=== PATIENT | male | born 1980 | race Caucasian/White ===

== ENCOUNTER 2018-04-03 14:13 | Emergency (ER) | payer MEDICARE, MEDICAID, SELFPAY ==
[2018-04-03 14:14] VITALS: BP 146/92; PULSE 112; RESP 18; TEMP 36.6; O2SAT 96; BMI 23.7
--- NOTE | 2018-04-03 14:41 | ED.VISSUMM ---
- ER Visit Summary Date of Service: 04/03/18 Chief Complaint: [] [place]'s chorea, weakness falling depression and anger issues cannot live with grandmother History of Present Illness: The patient is a 37 M [] that history for many years he is here with his aunt reports the grandmother is 93 and she no longer feels that she can care for him in the home as he constantly falls he cannot care for himself, she cannot help him, there are times where he is very depressed other times where he is very angry because of all the above, apparently grandmother came to the hospital via the day and talk to manager social media and there was some plan to have manager social media do an assessment however today the aunt brought him to the hospital to have all of the above expedited. The patient has not been ill in any way no fever no cough no chest pain he is seen by Dr. Prasanna Hull neurologist in [facility] his chorea is stable and the patient has no complaints Physical Examination: [] His vital signs are within normal range she does have nonspecific choreiform type movements of his extremities he is awake alert in all them this is chronic for him head neck chest abdomen otherwise unremarkable he is awake and alert oriented ?3 he denies being homicidal or suicidal there is no report of any type of injury or harm to grandmother but she basically is concerned about his mannerisms such that she does not feel comfortable living with him and also she cannot help him with his current condition Test Results: [] Emergency Department Course and Treatment: [] Of the above we will obtain screening labs manager social media [facility] or talking to the patient and the family now we will try to arrange some type of outpatient plan and management living arrangement for him if not it may be necessary have mental health services see him or have him admitted until placement can be arranged, screening labs will be on the chart She was seen by manager social media, they inform me, and I concur he again is awake and alert competent and coherent he is his own decision maker he does not have a power of associate attorney he does not wish to be admitted he is declining any evaluation for placement as he states he does not wish to do that I have explained all the above the family that there is really nothing we can do given that he is refusing placement I have explained that if the grandmother does not wish for him to be in the home that the patient will have to find some other place to stay or live we recommended a local care home [facility] type situation or may be the family can help him locate to a motel until more permanent living arrangements can be obtained there is no signs of homicidal suicidal ideation or psychomotor agitation this is clearly a social issue with family members Treatment Plan: [] Please make the following note addendum the patient is agreeable to being admitted to rehab and manager social media has talked to rehab and they are trying to make arrangements for him to be admitted there so the current plan is to admit him to rehab if not the plan is as above Disposition: [] Impression: [] History of [place]'s chorea, can no longer live with grandmother needs placement her family This note was generated with Cat [employer] dictation software. It may contain incorrect words, spelling, and punctuation that were not noted in review of the chart prior to signing ED Disposition - Plan for ED Patient: Chief Complaint: Mental Health Instructions: ED Prevention Fall Referrals: Lucia Yeager [NON-STAFF] - Care Physician,No Primary [Primary Care Provider] -
--- NOTE | 2018-04-03 14:44 | ED.DCSUM_ITS ---
- ER Visit Summary Date of Service: 04/03/18 Chief Complaint: [] [place]'s chorea, weakness falling depression and anger issues cannot live with grandmother History of Present Illness: The patient is a 37 M [] that history for many years he is here with his aunt reports the grandmother is 93 and she no longer feels that she can care for him in the home as he constantly falls he cannot care for himself, she cannot help him, there are times where he is very depressed other times where he is very angry because of all the above, apparently grandmother came to the hospital via the day and talk to transition social worker and there was some plan to have transition social worker do an assessment however today the aunt brought him to the hospital to have all of the above expedited. The patient has not been ill in any way no fever no cough no chest pain he is seen by Dr. Prasanna Hull neurologist in [facility] his chorea is stable and the patient has no complaints Physical Examination: [] His vital signs are within normal range she does have nonspecific choreiform type movements of his extremities he is awake alert in all them this is chronic for him head neck chest abdomen otherwise unremarkable he is awake and alert oriented ?3 he denies being homicidal or suicidal there is no report of any type of injury or harm to grandmother but she basically is concerned about his mannerisms such that she does not feel comfortable living with him and also she cannot help him with his current condition Test Results: [] Emergency Department Course and Treatment: [] Of the above we will obtain screening labs transition social worker [facility] or talking to the patient and the family now we will try to arrange some type of outpatient plan and management living arrangement for him if not it may be necessary have mental health services see him or have him admitted until placement can be arranged, screening labs will be on the chart She was seen by transition social worker, they inform me, and I concur he again is awake and alert competent and coherent he is his own decision maker he does not have a power of county attorney he does not wish to be admitted he is declining any evaluation for placement as he states he does not wish to do that I have explained all the above the family that there is really nothing we can do given that he is refusing placement I have explained that if the grandmother does not wish for him to be in the home that the patient will have to find some other place to stay or live we recommended a local [facility]p [facility] type situation or may be the family can help him locate to a motel until more permanent living arrangements can be obtained there is no signs of homicidal suicidal ideation or psychomotor agitation this is clearly a social issue with family members Treatment Plan: [] Please make the following note addendum the patient is agreeable to being admitted to rehab and transition social worker has talked to rehab and they are trying to make arrangements for him to be admitted there so the current plan is to admit him to rehab if not the plan is as above Disposition: [] Impression: [] History of [place]'s chorea, can no longer live with grandmother needs placement her family This note was generated with Siemens dictation software. It may contain incorrect words, spelling, and punctuation that were not noted in review of the chart prior to signing ED Disposition - Plan for ED Patient: Chief Complaint: Mental Health Instructions: ED Prevention Fall Referrals: Lucia Yeager [NON-STAFF] - Care Physician,No Primary [Primary Care Provider] -
[2018-04-03 15:02] LABS: Absolute Neutrophil Count 4.8 X10^3/uL (2.0-7.7); Basophil# 0.03 X10^3/uL; Basophil% 0.4 % (0-1); Eosinophil# 0.08 X10^3/uL; Eosinophils% 1.1 % (0-5); Hematocrit 47.3 % (40-54); Hemoglobin 16.1 g/dl (13.0-16.5); Lymphocyte % 23.8 % (19-41); Mean Corpuscular Volume 88.1 fL (80-94); Mean Platelet Vol. 10.7 fl (6.2-12.0); Monocyte# 0.58 X10^3/uL; Monocyte% 8.1 % (0-10); Neutrophil # 4.75 X10^3/uL (2.7-7.7); Neutrophil % 66.5 % (47-70); POSITIVE COUNT NO; POSITIVE DIFFERENTIAL NO; POSITIVE MORPHOLOGY NO; Platelet Count 181 K/mm3 (150-450); RBC Distribution Width CV 13.2 % (11.6-14.6); RBC Distribution Width SD 42.3 fl (35.1-43.9); Red Blood Count 5.37 M/mm3 (4.6-6.2); White Blood Count 7.2 K/mm3 (4.4-11.0)
--- NOTE | 2018-04-03 15:03 | CASEMGMT ---
Social Work Note Voicemail from Kasi Palacio, Pt Navigator, informing SW that pt would be on his way in to the ED with his aunt and that family is seeking placement. Update that the pt has [place]'s disease and has been living with his grandmother, Shaniqua Hallman, who is a volunteer here at the hospital. Pt arrives with his aunt and aunt requests to speak with SW. Face to face with the pt and his aunt. Pt reports to live with his grandmother. States that he was in a SNF in [facility] about 6 years ago for approximately 6 months. Inquire if they are seeking placement now. Pt's aunt shakes her head yes and the pt states no. Pt is his own person and does not have a LG appointed. Inquire about his fall today. Pt states that he was transferring in the kitchen when he fell. Denies that he has frequent falls. States that he is primarily independent with care and is able to dress himself, feed himself and bathe himself. Aunt shakes her head no in the background. Pt denies having Waiver Services or aide services that assist in the home. Claims that he used to have an aide that came out once a week for $20/visit and assisted with household cleaning. Pt states he has had Medicaid for approximately 8-9 years. Inquire further about ADL's. Pt denies having DME in the bathroom and states that his grandmother does not assist him with bathing, but that he lowers himself into a tub and uses a handheld shower. States that he and his grandmother both listen for the other while they are bathing, but do not physically assist one another. Pt again states that he is not interested in going to a facility and feels that he is able to manage himself at home. Inform that SW placed an order for PT to come and evaluate and that they would make an recommendation based on their evaluation. Pt expresses understanding. Provided pt with a list of facilities in [place] in the event that he agrees to go and explain that SW will return. Pt's aunt follows SW out of the room and states that the pt is lying and is not able to do all of that independently. States that he does not clean or make prepare his own meals. Claims that her mother is 90 years old and does not feel safe anymore. Express understanding and explain that unfortunately SW cannot force the pt to go to a facility if he is not agreeable. Explain that this SW, individually, has made multiple APS phone calls and because the pt's grandmother has not been cooperative with APS, SW does not believe that they can force the pt out of the home until an eviction notice is provided. Discuss that SW will contact APS to verify and see what options are available. Placed call to Rain Childs, search engine optimization analyst with APS, and left vm. No return phone call. Placed call to Urmila Dumas, supervisor personnel clerks. According to Urmila they cannot force the pt to go to a facility as he is not over 60 and does not fall under their jurisdiction. States that because the grandmother has not wanted to kick the pt out when they have been involved and provide him with an eviction notice they cannot force him out of the home in one day. States that another APS report can be made and they can follow-up and assist with evicting him if the grandmother is willing to cooperate with them and the procedure/protocols they have to implement. Will await PT evaluation to further discuss with pt options for discharge. Physician updated. Sarah Beebe, ZIPPER SETTER, SQL DEVELOPER
[2018-04-03 15:14] VITALS: RESP 16
[2018-04-03 15:14] LABS: Anion Gap 5 (5-15); BUN 24 mg/dL (7-18); BUN/Creat Ratio 20.9 RATIO (10-20); Calcium,Total 9.1 mg/dL (8.5-10.1); Chloride 111 mmol/L (98-107); Creatinine, Serum 1.15 mg/dL (0.70-1.30); EST Glomerular Filtration Rate 75 mL/min (>60); Est Glom Filt Rate - Afr Amer 91 mL/min (>60); Estimated Creatinine Clearance 98.43 ml/min; Glucose 94 mg/dL (74-106); Sodium Level 144 mmol/L (136-145)
[2018-04-03 16:21] VITALS: RESP 16
--- NOTE | 2018-04-03 16:38 | ED.DEP ---
ED Disposition - Plan for ED Patient: Chief Complaint: Mental Health Instructions: ED Prevention Fall Referrals: Care Physician,No Primary [Primary Care Provider] - Lucia Yeager [NON-STAFF] -
--- NOTE | 2018-04-03 16:41 | ED.DEP ---
ED Disposition - Plan for ED Patient: Chief Complaint: Mental Health Instructions: ED Prevention Fall Referrals: Lucia Yeager [NON-STAFF] - Care Physician,No Primary [Primary Care Provider] -
[2018-04-03 16:47] LABS: Amphetamine Urine VISTA NEGATIVE (<1000 ng/mL); Barbiturate Urine VISTA NEGATIVE (< 200 ng/mL); Benzodiazepine Urine VISTA NEGATIVE (< 200 ng/mL); Cocaine Urine VISTA NEGATIVE (< 300 ng/mL); Ecstacy Urine VISTA NEGATIVE (< 500 ng/mL); Methadone Urine VISTA NEGATIVE (< 300 ng/mL); PCP Urine VISTA NEGATIVE (< 25 ng/mL); THC Urine VISTA NEGATIVE (< 50 ng/mL); Vista UDS pH Range 5
--- NOTE | 2018-04-03 16:56 | CM.ED ---
Social Work Note Called Charleen in [facility] to review pt's case. Charleen down to unit and accompanies SW into pt's room to discuss option of [facility] for short-term rehabilitation. Pt is agreeable and understands that a minimum of 3 hrs of therapy per day is required. Charleen states that she is going to work on paperwork to have pt admitted to [facility] this date. Pt states that he wants to do what is easiest for his grandmother at discharge and if possible to setup would like to go elsewhere at discharge. Pt signed application for review of eligibility of services. Application faxed to Robert. PT had recommended home with HHC or a [facility] setting. Requested evaluation for [place] [facility] Waiver and [employer] (SELF) Waiver. Information passed along to SW on [facility]. Sarah Beebe, MARKET RESEARCH ASSOCIATE, CONNIE CLEANER
--- NOTE | 2018-04-03 16:59 | ED.RN ---
REPORT GIVEN TO EVETTE TIMMONS ON REHAB.
--- NOTE | 2018-04-03 17:21 | ED.RN ---
PT TRANSPORTED TO [facility] BY CARDIOLOGY TEACHER. PT SKIN P/W/D, RESP EVEN AND UNLABORED, PT A&O X 3, NO DISTRESS NOTED.
== END 2018-04-03 17:22 | disposition home or self-care (01) ==
PROVIDERS: Emergency Provider Emergency Medicine
DX: G10 Huntington's disease (principal); F32.9 Major depressive disorder, single episode, unspecified; Z91.81 History of falling; Z79.899 Other long term (current) drug therapy
CPT/HCPCS: 80048; 80307; 80320; 85025; 97165; 99281; G0480; G8987; G8988; G8989

== ENCOUNTER 2018-04-03 18:06 | Inpatient (IN) | payer MEDICARE, MEDICAID, SELFPAY ==
[2018-04-03 18:23] VITALS: BP 143/95; PULSE 92; RESP 16; TEMP 36.8; O2SAT 95; BMI 21.2
[2018-04-03 19:50] VITALS: BP 128/85; PULSE 75; RESP 18; TEMP 37.1; O2SAT 95
[2018-04-03 21:40] VITALS: BMI 21.2
[2018-04-03] MEDS: hydrOXYzine PAM 25 MG Capsule 50 MG PO (22:03)
[2018-04-03] MEDS: Amantadine 100 MG Capsule PO (22:04)
[2018-04-03] MEDS: Baclofen 10 MG Tablet PO (22:04)
[2018-04-03] MEDS: Gabapentin 300 MG Capsule PO (22:04)
[2018-04-03] MEDS: LORazepam 0.5 MG Tablet PO (22:08)
[2018-04-04] MEDS: Acetaminophen 325 MG Tablet 650 MG PO ×2 (00:39→20:58)
[2018-04-04] MEDS: Amantadine 100 MG Capsule PO ×3 (06:27→21:00)
[2018-04-04 07:25] VITALS: O2SAT 96
[2018-04-04] MEDS: Famotidine 20 MG Tablet PO ×2 (07:55→21:01)
[2018-04-04] MEDS: Escitalopram Oxalate 10 MG Tablet PO (07:56)
[2018-04-04] MEDS: Gabapentin 300 MG Capsule PO ×3 (07:56→17:43)
[2018-04-04] MEDS: Baclofen 10 MG Tablet PO ×4 (07:56→21:01)
[2018-04-04 09:44] VITALS: BP 114/78; PULSE 66; RESP 17; TEMP 36.5; O2SAT 92
[2018-04-04] MEDS: Enoxaparin 40 MG/0.4 ML Syringe SC (10:21)
--- NOTE | 2018-04-04 14:29 | HP.PCM.COS_ITS ---
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 He is constantly falling, per the family. He lives with his grandmother who is 93. She feels she can no longer care of him in the home because of the falls and his inability to care for himself. He recently was attempting to open a can of cat food and cut him self on the can when his hand started jerking, he has choreiform movements throughout, he did not require any sutures and the cut is not very deep. He also dropped a crock pot on his foot, it is red and slightly swollen but not broken. The patient has not been ill in any way he denies any fevers, chills, cough, or chest pains. His Neurologist is Dr. Everett Hull in [place]. He and his grandmother live in a two story home with 4 steps to get into the house and hard caldwell floor through out the house. He is unable to care for him self at home, per the family. He does not drive. He will probably need placement in a [facility] at discharge. Past Medical History Allergies No Known Allergies Allergy (Verified 04/03/18 14:17) Home Medications: Ambulatory Orders Medication Instructions Recorded Amantadine [Symmetrel] 100 mg PO TID 02/28/14 Baclofen [Lioresal] 10 mg PO 4X/DAY 02/28/14 Gabapentin 300 mg PO TID 02/28/14 Escitalopram Oxalate [Lexapro] 10 mg PO DAILY 04/03/18 Hydroxyzine HCl 50 mg PO DAILY 04/03/18 Lives: With Family Smoking Status: Current every day smoker Tobacco Use: Cigarettes Alcohol: None Drugs: None Review of Systems Constitutional: Denies: Chills, Fever, Weight Change HEENT: Denies: Head Aches, Sinus Congestion, Sinus Drainage Cardiovascular: Denies: Chest Pain, Palpitations Respiratory: Denies: Cough, Shortness of breath at rest, Sputum production Gastrointestinal: Denies: Abdominal Pain, Nausea, Vomiting Genitourinary: Denies: Dysuria Musculoskeletal: Denies: Joint Pain, Joint Tenderness Skin: Denies: Rash, Wounds Neurological: Denies: Numbness, Tingling, Focal weakness Psychiatric: Denies: Anxiety, Depression, Homicidal Ideations, Suicidal Ideations Hematologic/ Lymphatic: Denies: Easy Bruising, Easy Bleeding VTE Information - Inpt Only VTE Present on Admission: No VTE Mechan Device Prophylaxis: SCD's, Knee High HELENA Hose VTE Pharm Prophylaxis ordered?: Yes - Physical Exam General: Alert, Oriented x3, Cooperative HEENT: Atraumatic, PERRLA, EOMI, Normocephalic Neck: Supple, No JVD, Negative Carotid Bruits Lungs: Clear to auscultation, Normal air movement Cardiovascular: Regular rate, No murmurs Abdomen: Bowel Sounds Present, Soft, Non Tender Extremities: No edema, Capillary Refill Less than 3 Seconds Skin: No rashes, No breakdown Musculoskeletal: No Tenderness to Palpation of Joints or Extremities Neurological: Cranial nerves II-XII grossly intact Psych/Mental Status: Normal Affect, Appropriate, Alert and oriented to time, place, person, mood and affect Vital Signs Temp Pulse Resp BP Pulse Ox 97.7 F L 66 17 114/78 92 04/04/18 09:44 04/04/18 09:44 04/04/18 09:44 04/04/18 09:44 04/04/18 09:44 Oxygen Delivery Method Room Air Weight: 73 kg Body Mass Index (BMI) 21.2 Intake and Output for Last 24 Hours 04/02/18 04/03/18 04/04/18 23:59 23:59 23:59 Intake Total 580 / 580 Balance 580 / 580 Active Medications Acetaminophen (Tylenol) 650 mg PO Q6H PRN PRN PRN Reason: mild to mod pain/fever Last Admin: 04/04/18 00:39 Dose: 650 mg Amantadine HCl (Symmetrel) 100 mg PO TID [facility] Last Admin: 04/04/18 06:27 Dose: 100 mg Baclofen (Lioresal) 10 mg PO 4X/DAYCM [facility] Last Admin: 04/04/18 12:31 Dose: 10 mg Bisacodyl (Dulcolax) 10 mg RECTAL .PRN X 1 PRN PRN Reason: Constipation Enoxaparin Sodium (Lovenox) 40 mg SC DAILY [facility] Last Admin: 04/04/18 10:21 Dose: 40 mg Escitalopram Oxalate (Lexapro) 10 mg PO DAILY [facility] Last Admin: 04/04/18 07:56 Dose: 10 mg Famotidine (Pepcid) 20 mg PO BID [facility] Last Admin: 04/04/18 07:55 Dose: 20 mg Gabapentin (Neurontin) 300 mg PO TIDCM [facility] Last Admin: 04/04/18 12:31 Dose: 300 mg Hydroxyzine Pamoate (Vistaril Pamoate Capsule) 50 mg PO DAILY@2200 [facility] Last Admin: 04/03/18 22:03 Dose: 50 mg Ibuprofen (Motrin) 600 mg PO Q6H PRN PRN PRN Reason: SEVERE PAIN (6-1010) Lorazepam (Ativan) 0.5 mg PO QHS PRN PRN PRN Reason: Insomnia Last Admin: 04/03/18 22:08 Dose: 0.5 mg Magnesium Hydroxide (Milk Of Magnesia) 30 ml PO .PRN X 1 PRN PRN Reason: Constipation Nicotine (Nicoderm Cq (Pbkc)) 14 mg TRANSDERM. 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 Goal of rehab is buddhist of prior level of functional independence. Plan: - Physical therapy for gait and balance - Occupational Therapy for ADLs - Speech therapy - As needed analgesics - Bowel protocol - DVT prophylaxis: [place] hoses, SCDs, and Lovenox - Fall Precautions - Plan is placement in [facility] at discharge - [place]'s chorea - continue home medication regimen. Recommend tetrabenazine for movement disorder. [facility] pharmacy does not carry inpatient but will attempt to order in. - Depression-continue home Lexapro regimen. - Tobacco Dependence - nicotine replacement patch. discussed cessation benefits.
--- NOTE | 2018-04-04 15:31 | PCM.PROGNOTE ---
Subjective: Patient seen and examined. Family at bedside. Patient denies current complaints. Denies GI/ complaints. States he walked with therapy assistance today without difficulty. - Physical Exam General: Alert, Oriented x3, Cooperative, No apparent distress HEENT: Atraumatic, PERRLA, EOMI, Normocephalic Oral: Moist Mucosa Neck: Supple, No JVD, Negative Carotid Bruits Lungs: Clear to auscultation, Normal air movement Cardiovascular: Regular rate, Regular Rhythm, Normal S1, Normal S2, No murmurs Abdomen: Bowel Sounds Present, Soft, Non Tender Extremities: No clubbing, No cyanosis, No edema, Capillary Refill Less than 3 Seconds Skin: No rashes, No breakdown Musculoskeletal: No Tenderness to Palpation of Joints or Extremities Neurological: Cranial nerves II-XII grossly intact, Neuro grossly intact, - - Abnormal body movements. Psych/Mental Status: Normal Affect, Appropriate Vital Signs Temp Pulse Resp BP Pulse Ox 97.7 F L 66 17 114/78 92 04/04/18 09:44 04/04/18 09:44 04/04/18 09:44 04/04/18 09:44 04/04/18 09:44 Oxygen Delivery Method Room Air Weight: 73 kg Body Mass Index (BMI) 21.2 Intake and Output for Last 24 Hours 04/02/18 04/03/18 04/04/18 23:59 23:59 23:59 Intake Total 580 / 580 Balance 580 / 580 Medical Necessity - Tobacco Use Smoking Status: Current every day smoker Tobacco Use: Cigarettes Assessment/Plan Patient is a 37-year-old male admitted 04/03/2018 due to debility, frequent falls at home secondary to [place]'s chorea disease. He has a significant family history of [place]'s chorea. He currently lives with grandmother with his 93 years old. He follows with a neurologist, Dr. Jose Koch. 1. Physical debility secondary to [place]'s chorea-continue home medication regimen. PT/OT/ST. Anticipate need for SNF at [place]. Dr. Martin recommending tertabenazine for movement disorder. [facility] pharmacy does not carry inpatient but will attempt to order in. Fall precautions. 2. Depression-continue home Lexapro regimen. 3. Tobacco Dependence- nicotine replacement patch. Recommend cessation. DVT prophylaxis- Lovenox SC This patient was seen by KARLA Hilton under the supervision of Dr. Vergara.
--- NOTE | 2018-04-04 15:42 | PN_ITS ---
Subjective: Patient seen and examined. Family at bedside. Patient denies current complaints. Denies GI/ complaints. States he walked with therapy assistance today without difficulty. - Physical Exam General: Alert, Oriented x3, Cooperative, No apparent distress HEENT: Atraumatic, PERRLA, EOMI, Normocephalic Oral: Moist Mucosa Neck: Supple, No JVD, Negative Carotid Bruits Lungs: Clear to auscultation, Normal air movement Cardiovascular: Regular rate, Regular Rhythm, Normal S1, Normal S2, No murmurs Abdomen: Bowel Sounds Present, Soft, Non Tender Extremities: No clubbing, No cyanosis, No edema, Capillary Refill Less than 3 Seconds Skin: No rashes, No breakdown Musculoskeletal: No Tenderness to Palpation of Joints or Extremities Neurological: Cranial nerves II-XII grossly intact, Neuro grossly intact, - - Abnormal body movements. Psych/Mental Status: Normal Affect, Appropriate Vital Signs Temp Pulse Resp BP Pulse Ox 97.7 F L 66 17 114/78 92 04/04/18 09:44 04/04/18 09:44 04/04/18 09:44 04/04/18 09:44 04/04/18 09:44 Oxygen Delivery Method Room Air Weight: 73 kg Body Mass Index (BMI) 21.2 Intake and Output for Last 24 Hours 04/02/18 04/03/18 04/04/18 23:59 23:59 23:59 Intake Total 580 / 580 Balance 580 / 580 Medical Necessity - Tobacco Use Smoking Status: Current every day smoker Tobacco Use: Cigarettes Assessment/Plan Patient is a 37-year-old male admitted 04/03/2018 due to debility, frequent falls at home secondary to [place]'s chorea disease. He has a significant family history of [place]'s chorea. He currently lives with grandmother with his 93 years old. He follows with a neurologist, Dr. Jose Koch. 1. Physical debility secondary to [place]'s chorea-continue home medication regimen. PT/OT/ST. Anticipate need for SNF at [place]. Dr. Martin recommending tertabenazine for movement disorder. [facility] pharmacy does not carry inpatient but will attempt to order in. Fall precautions. 2. Depression-continue home Lexapro regimen. 3. Tobacco Dependence- nicotine replacement patch. Recommend cessation. DVT prophylaxis- Lovenox SC This patient was seen by KARLA Hilton under the supervision of Dr. Vergara.
--- NOTE | 2018-04-04 15:44 | CASEMGMT ---
Social Work Met with pt in room and completed psychosocial assessment. Pt willing to speak to SW and openly answers questions. Pt stating that he is independent with care and getting along well at home. He lives with his 93 year old grandmother in a basement apartment and has no trouble negotiating the stairs. Pt states he plans to return home upon discharge and that pt believes his grandmother is contemplating moving to a nursing facility as keeping the house up is too much for her. Pt states he does have a , Cathy Amor, who he speaks with on the phone but he does not live with her. Pt indicates that she is is HCPOA and that he completed this paper work at [facility] however, no documents are on file. SW spoke with [facility] ED SW who worked with pt and family yesterday. Family reports pt cannot care for himself at home and that his grandmother does not feel pt can return home as she can no longer care for him. No indication that pt grandmother was moving out of the home. Family does not indicate pt has HCPOA papers. With permission from pt, phone call placed to Cathy with no answer. SW will follow up to offer support and discuss discharge planning LISA Drew
--- NOTE | 2018-04-04 16:06 | REHABEVAL_ITS ---
Admission Information Status Changes from Prescreening?: No changes Identified Actual Problem List:: Falls, Mobility Impaired, Self Care Deficit Potential Problem List:: DVT, Bleeding, Infection, UTI, Aspiration, Falls, Skin Integrity, Depression Risk of Complications DVT: LMWH, HELENA Hose, Sequential Compression Device Bleeding: Monitor Lab Values, Nursing to Teach Precautions for anti-coagulation therapy., Wound, if applicable, to be assessed every shift., Stroke patients assessed for lethargy or change in status. Infection: Clinical Staff to Monitor for S/S of infection:, S/S of infection include fever, redness, warmth, etc. Urinary Tract Infection: Monitor for frequency, burning, discomfort, or incontinence., Nursing will obtain urine sample for urinalysis and C&S when ordered. Aspiration: Clinical staff will monitor for coughing, drooling, congestion., Speech will evaluate swallowing and dsyphasia., Nursing will monitor patient swallowing during meals. Falls: Patient will be evaluated for Fall Precautions, Patient will be placed on Fall Precautions as indicated per protocol. Skin Breakdown: Nursing will assess skin daily using assessment tool., Nursing will place on Skin Breakdown Precautions as indicated. Pain: Clinical staff will assess patient's pain level per protocol., Medications will be given, if needed, and the pain level reassessed., Other methods: Massage, distraction, decrease stimulus, etc. used PRN. Plan of Care Patient requires physician specializing in physical medicine and rehab oversight to provide close medical supervision of rehab issues including: Pain Management, Sleep Problems, Bowel and Bladder, Medical and co-morbidity Management, DVT prophylaxis, Rehabilitation Leadership, Coordination of treatment team Patient needs Physical Therapy: For a minimum of 1 hour, At least 5 out of 7 days Patient needs Physical Therapy to improve:: Mobility, Mobility, Mobility, Strengthening, Transfers, Stretching, ROM, Endurance, Stairs, Gait, Balance Patient needs Occupational Therapy: For a minimum of 1 hour, At least 5 out of 7 days Patient needs Occupational Therapy to improve ADL's incl.: Eating, Grooming, Bathing, Dressing, Toileting, Toilet transfers, Community Reintegration, Higher functioning activities, Household tasks, Adaptive Equipment, Splinting, Other activities as determined Patient requires speech therapy: For a minimum of 1 hour, At least 5 out of 7 days Patient requires speech therapy for: Swallowing, Cognition, Language Skills, Compensatory Strategies Patient requires / Rehabilitation Nursing for: Pain Issues, Identifying and preventing risk factors, Monitoring and reporting current medical conditions, Assisting with ambulation, transfer, and all ADL's, Teaching patients about disease process and medications, Family teaching, Providing safe environment, Bowel and Bladder Issues, Skin integrity, Medication Management Patient needs Painter And Decorator Apprentice/ Case Management for: Discharge Planning, Arranging Home Equipment or Services, Family Interventions Patient needs Dietary and Nutrition Services for: Adequate Nutrition, Nutritional Supplements, Nutritional Education Goals Patient will remain: free from falls, or injury at time of discharge. Patient will perform bed mobility at: MOD I level of assist. Patient will complete transfers from bed to chair at: MOD I level of assist. Patient will ambulate: 100 feet, with MOD I assist, with LRD Patient will complete upper body dressing at: MOD I level of assist. Patient will complete lower body dressing at: MOD I level of assist. Patient will complete toileting at: MOD I level of assist. Patient will perform bathing at: MOD I level of assist. Patient will complete grooming at: MOD I level of assist. Patient will complete home management skills at: MOD I level of assist. Patient will achieve: 12 stairs, at MOD I assist Patient will have pain level of: of 3 or less Patient's skin will: remain intact, free from infection. Patient will receive: adequate nutrition. Discharge Planning Pt Prognosis for Sig. Practical Improv. w/in Reasonable Time: Good Estimated Length of stay (days): 10 Anticipated D/C Destination: May need to be placed in a fci due to HD Was Preadmission Assessment Accurate?: Yes
--- NOTE | 2018-04-04 16:38 | CHAPLAIN ---
Type of Pastoral Visit _x__ Initial Visit ___ Follow-up Visit ___ On-call Visit ___ General Patient Visit ___ Spiritual Assessment ___ Family Conference ___ Bereavement ___ Rapid Response ___ Code Blue ___ Other (describe below) Pastoral Care Referral From _x__ Patient ___ Family ___ Nurse ___ Physician ___ Ground Surveillance Systems Operator ___ Health Plan Advisor ___ Other (describe below) Sacrament/Intervention _x__ Active listening ___ Anointing ___ Nondenominational ___ Bereavement ___ Communion ___ Nina exploration ___ ___ Life review ___ Prayer ___ Reconciliation ___ Sacrament of Sick _x__ Supportive presence ___ Wedding ___ Other (describe below) Pastoral Comments patient had family and friend in room with him; pt was welcoming of autocad designer and invited to stay; gave introduction to self and spiritual support; at patient suggestion, watched some soccer on TV for a few minutes to give presence and support; pt is open to future visits from autocad designer
[2018-04-04 16:48] LABS: Hematocrit 47.1 % (40-54); Hemoglobin 16.2 g/dl (13.0-16.5); Mean Corp Hgb Conc 34.4 g/gl (32-36); Mean Corpuscular Hgb 30.1 pg (27.0-32.0); Mean Corpuscular Volume 87.4 fL (80-94); Mean Platelet Vol. 10.9 fl (6.2-12.0); Platelet Count 173 K/mm3 (150-450); RBC Distribution Width CV 13.2 % (11.6-14.6); RBC Distribution Width SD 42.2 fl (35.1-43.9); Red Blood Count 5.39 M/mm3 (4.6-6.2); White Blood Count 4.6 K/mm3 (4.4-11.0)
[2018-04-04 16:49] LABS: Scan Indicated on CBC? Y/N NO
[2018-04-04 17:14] LABS: ALB/GLOB Ratio 1.1 RATIO (0.9-2.4); AST(SGOT) 41 U/L (15-37); Alanine Aminotransfer ALT/SGPT 43 U/L (16-61); Alkaline Phosphatase 89 U/L (45-117); Anion Gap 6 (5-15); BUN 20 mg/dL (7-18); BUN/Creat Ratio 19.8 RATIO (10-20); Calcium,Total 8.6 mg/dL (8.5-10.1); Chloride 110 mmol/L (98-107); Creatinine, Serum 1.01 mg/dL (0.70-1.30); EST Glomerular Filtration Rate 88 mL/min (>60); Est Glom Filt Rate - Afr Amer 106 mL/min (>60); Estimated Creatinine Clearance 102.39 ml/min; Globulin 3.6 g/dL (2.2-4.2); Glucose 99 mg/dL (74-106); Potassium 3.6 mmol/L (3.5-5.1); Protein, Total 7.6 g/dL (6.4-8.2); Sodium Level 141 mmol/L (136-145)
[2018-04-04 20:47] VITALS: BP 149/96; PULSE 87; RESP 16; TEMP 36.9; O2SAT 93
[2018-04-04] MEDS: LORazepam 0.5 MG Tablet PO (20:58)
[2018-04-04] MEDS: hydrOXYzine PAM 25 MG Capsule 50 MG PO (21:01)
[2018-04-05] MEDS: Amantadine 100 MG Capsule PO ×3 (05:28→22:08)
[2018-04-05 07:22] VITALS: BP 115/78; PULSE 84; RESP 18; TEMP 36.6; O2SAT 98
[2018-04-05] MEDS: Enoxaparin 40 MG/0.4 ML Syringe SC (07:42)
[2018-04-05] MEDS: Famotidine 20 MG Tablet PO ×2 (07:42→22:09)
[2018-04-05] MEDS: Baclofen 10 MG Tablet PO ×4 (07:42→22:09)
[2018-04-05] MEDS: Gabapentin 300 MG Capsule PO ×3 (07:42→17:52)
[2018-04-05] MEDS: Escitalopram Oxalate 10 MG Tablet PO (07:42)
[2018-04-05 18:52] VITALS: BP 142/88; PULSE 88; RESP 18; TEMP 36.3; O2SAT 92
[2018-04-05] MEDS: hydrOXYzine PAM 25 MG Capsule 50 MG PO (22:08)
[2018-04-05] MEDS: LORazepam 0.5 MG Tablet PO (22:09)
[2018-04-05] MEDS: Senna/Docusate Sodium 1 Tablet 2 TABLET PO (22:09)
[2018-04-06] MEDS: Amantadine 100 MG Capsule PO ×3 (05:59→20:43)
[2018-04-06 08:03] VITALS: BP 126/86; PULSE 76; RESP 18; TEMP 37; O2SAT 95
[2018-04-06] MEDS: Escitalopram Oxalate 10 MG Tablet PO (08:08)
[2018-04-06] MEDS: Enoxaparin 40 MG/0.4 ML Syringe SC (08:08)
[2018-04-06] MEDS: Baclofen 10 MG Tablet PO ×4 (08:08→20:43)
[2018-04-06] MEDS: Famotidine 20 MG Tablet PO ×2 (08:08→20:43)
[2018-04-06] MEDS: Gabapentin 300 MG Capsule PO ×3 (08:08→17:06)
[2018-04-06 20:18] VITALS: BP 139/90; PULSE 77; RESP 18; TEMP 36.9; O2SAT 94
[2018-04-06] MEDS: hydrOXYzine PAM 25 MG Capsule 50 MG PO (20:43)
--- NOTE | 2018-04-07 04:51 | NURSING ---
REVIEWED AND AGREE WITH [facility]ENTION DEPUTY'S FIM AND HANDOFF CHARTING.
[2018-04-07] MEDS: Amantadine 100 MG Capsule PO ×3 (06:18→21:44)
[2018-04-07 07:21] VITALS: BP 121/74; PULSE 64; RESP 18; TEMP 36.8; O2SAT 96
[2018-04-07] MEDS: Baclofen 10 MG Tablet PO ×4 (07:43→21:44)
[2018-04-07] MEDS: Escitalopram Oxalate 10 MG Tablet PO (07:44)
[2018-04-07] MEDS: Famotidine 20 MG Tablet PO ×2 (07:44→21:44)
[2018-04-07] MEDS: Gabapentin 300 MG Capsule PO ×3 (07:44→17:29)
[2018-04-07] MEDS: Enoxaparin 40 MG/0.4 ML Syringe SC (07:44)
--- NOTE | 2018-04-07 10:24 | PCM.PN.NEU ---
Subjective: Sitting in bedside recliner working with speech therapy. No new complaints or issues over the weekend. Tolerating therapy. Denies any shortness of breath or pain. No issues with GI/. - Physical Exam General: Alert, Oriented x3, Cooperative HEENT: Atraumatic, PERRLA, EOMI, Normocephalic Neck: Supple, No JVD, Negative Carotid Bruits Lungs: Clear to auscultation, Normal air movement Cardiovascular: Regular rate, No murmurs Abdomen: Bowel Sounds Present, Soft, Non Tender Extremities: No edema, Capillary Refill Less than 3 Seconds Skin: No rashes, No breakdown Musculoskeletal: No Tenderness to Palpation of Joints or Extremities Neurological: Cranial nerves II-XII grossly intact Psych/Mental Status: Normal Affect, Appropriate, Alert and oriented to time, place, person, mood and affect Vital Signs Temp Pulse Resp BP Pulse Ox 98.3 F 64 18 121/74 H 96 04/07/18 07:21 04/07/18 07:21 04/07/18 07:21 04/07/18 07:21 04/07/18 07:21 Oxygen Delivery Method Room Air Weight: 73 kg Body Mass Index (BMI) 21.2 Intake and Output for Last 24 Hours 04/05/18 04/06/18 04/07/18 23:59 23:59 23:59 Intake Total 1100 / 1100 1280 / 1280 440 / 440 Balance 1100 / 1100 1280 / 1280 440 / 440 Active Medications Acetaminophen (Tylenol) 650 mg PO Q6H PRN PRN PRN Reason: mild to mod pain/fever Last Admin: 04/04/18 20:58 Dose: 650 mg Amantadine HCl (Symmetrel) 100 mg PO TID [facility] Last Admin: 04/07/18 06:18 Dose: 100 mg Baclofen (Lioresal) 10 mg PO 4X/DAYCM [facility] Last Admin: 04/07/18 07:43 Dose: 10 mg Bisacodyl (Dulcolax) 10 mg RECTAL .PRN X 1 PRN PRN Reason: Constipation Enoxaparin Sodium (Lovenox) 40 mg SC DAILY@0600 [facility] Escitalopram Oxalate (Lexapro) 10 mg PO DAILY [facility] Last Admin: 04/07/18 07:44 Dose: 10 mg Famotidine (Pepcid) 20 mg PO BID [facility] Last Admin: 04/07/18 07:44 Dose: 20 mg Gabapentin (Neurontin) 300 mg PO TIDCM [facility] Last Admin: 04/07/18 07:44 Dose: 300 mg Hydroxyzine Pamoate (Vistaril Pamoate Capsule) 50 mg PO DAILY@2200 [facility] Last Admin: 04/06/18 20:43 Dose: 50 mg Ibuprofen (Motrin) 600 mg PO Q6H PRN PRN PRN Reason: SEVERE PAIN (6-10/10) Lorazepam (Ativan) 0.5 mg PO QHS PRN PRN PRN Reason: Insomnia Last Admin: 04/05/18 22:09 Dose: 0.5 mg Magnesium Hydroxide (Milk Of Magnesia) 30 ml PO .PRN X 1 PRN PRN Reason: Constipation Nicotine (Nicoderm Cq (Pbkc)) 14 mg TRANSDERM. 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 Goal of rehab is latter day of prior level of functional independence. Plan: - Physical therapy for gait and balance - Occupational Therapy for ADLs - Speech therapy - As needed analgesics - Bowel protocol - DVT prophylaxis: Calixto hoses, SCDs, and Lovenox - Fall Precautions - [facility] - [place]'s chorea - continue home medication regimen. Recommend tetrabenazine for movement disorder. [facility] pharmacy does not carry inpatient but will attempt to order in. - Depression-continue home Lexapro regimen. - Tobacco Dependence - nicotine replacement patch. discussed cessation benefits.
--- NOTE | 2018-04-07 10:28 | PN.NEURO_ITS ---
Subjective: Sitting in bedside recliner working with speech therapy. No new complaints or issues over the weekend. Tolerating therapy. Denies any shortness of breath or pain. No issues with GI/. - Physical Exam General: Alert, Oriented x3, Cooperative HEENT: Atraumatic, PERRLA, EOMI, Normocephalic Neck: Supple, No JVD, Negative Carotid Bruits Lungs: Clear to auscultation, Normal air movement Cardiovascular: Regular rate, No murmurs Abdomen: Bowel Sounds Present, Soft, Non Tender Extremities: No edema, Capillary Refill Less than 3 Seconds Skin: No rashes, No breakdown Musculoskeletal: No Tenderness to Palpation of Joints or Extremities Neurological: Cranial nerves II-XII grossly intact Psych/Mental Status: Normal Affect, Appropriate, Alert and oriented to time, place, person, mood and affect Vital Signs Temp Pulse Resp BP Pulse Ox 98.3 F 64 18 121/74 H 96 04/07/18 07:21 04/07/18 07:21 04/07/18 07:21 04/07/18 07:21 04/07/18 07:21 Oxygen Delivery Method Room Air Weight: 73 kg Body Mass Index (BMI) 21.2 Intake and Output for Last 24 Hours 04/05/18 04/06/18 04/07/18 23:59 23:59 23:59 Intake Total 1100 / 1100 1280 / 1280 440 / 440 Balance 1100 / 1100 1280 / 1280 440 / 440 Active Medications Acetaminophen (Tylenol) 650 mg PO Q6H PRN PRN PRN Reason: mild to mod pain/fever Last Admin: 04/04/18 20:58 Dose: 650 mg Amantadine HCl (Symmetrel) 100 mg PO TID [facility] Last Admin: 04/07/18 06:18 Dose: 100 mg Baclofen (Lioresal) 10 mg PO 4X/DAYCM [facility] Last Admin: 04/07/18 07:43 Dose: 10 mg Bisacodyl (Dulcolax) 10 mg RECTAL .PRN X 1 PRN PRN Reason: Constipation Enoxaparin Sodium (Lovenox) 40 mg SC DAILY@0600 [facility] Escitalopram Oxalate (Lexapro) 10 mg PO DAILY [facility] Last Admin: 04/07/18 07:44 Dose: 10 mg Famotidine (Pepcid) 20 mg PO BID [facility] Last Admin: 04/07/18 07:44 Dose: 20 mg Gabapentin (Neurontin) 300 mg PO TIDCM [facility] Last Admin: 04/07/18 07:44 Dose: 300 mg Hydroxyzine Pamoate (Vistaril Pamoate Capsule) 50 mg PO DAILY@2200 [facility] Last Admin: 04/06/18 20:43 Dose: 50 mg Ibuprofen (Motrin) 600 mg PO Q6H PRN PRN PRN Reason: SEVERE PAIN (6-10/10) Lorazepam (Ativan) 0.5 mg PO QHS PRN PRN PRN Reason: Insomnia Last Admin: 04/05/18 22:09 Dose: 0.5 mg Magnesium Hydroxide (Milk Of Magnesia) 30 ml PO .PRN X 1 PRN PRN Reason: Constipation Nicotine (Nicoderm Cq (Pbkc)) 14 mg TRANSDERM. 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 Goal of rehab is synagogue of prior level of functional independence. Plan: - Physical therapy for gait and balance - Occupational Therapy for ADLs - Speech therapy - As needed analgesics - Bowel protocol - DVT prophylaxis: Calixto hoses, SCDs, and Lovenox - Fall Precautions - [facility] - [place]'s chorea - continue home medication regimen. Recommend tetrabenazine for movement disorder. [facility] pharmacy does not carry inpatient but will attempt to order in. - Depression-continue home Lexapro regimen. - Tobacco Dependence - nicotine replacement patch. discussed cessation benefits.
--- NOTE | 2018-04-07 15:36 | PCM.PN.HOSP ---
Subjective: Patient was seen and examined. No new complaints. No acute event according to the nurses. Denies fever, chills, SOB. Vitals/I&O's: Vital Signs Temp Pulse Resp BP Pulse Ox 98.3 F 64 18 121/74 H 96 04/07/18 07:21 04/07/18 07:21 04/07/18 07:21 04/07/18 07:21 04/07/18 07:21 Oxygen Delivery Method Room Air Weight: 73 kg Body Mass Index (BMI) 21.2 Intake and Output for Last 24 Hours 04/05/18 04/06/18 04/07/18 23:59 23:59 23:59 Intake Total 1100 / 1100 1280 / 1280 700 / 700 Balance 1100 / 1100 1280 / 1280 700 / 700 General: Alert, Oriented x3, Cooperative, No apparent distress HEENT: Atraumatic, PERRLA, EOMI, Normocephalic Oral: Moist Mucosa Neck: Supple Lungs: Clear to auscultation, Normal air movement Cardiovascular: Regular rate, Regular Rhythm, Normal S1, Normal S2, No murmurs Abdomen: Bowel Sounds Present, Soft, Non Tender, Non-Distended, No Hepato-splenomegaly Extremities: No edema Skin: No rashes, No breakdown Musculoskeletal: No Tenderness to Palpation of Joints or Extremities Lymphatic: No Cervical, Supraclavicular, or Inguinal Adenopathy Neurological: Cranial nerves II-XII grossly intact, Neuro grossly intact Psych/Mental Status: Normal Affect, Appropriate Current Medications Acetaminophen (Tylenol) 650 mg PO Q6H PRN PRN PRN Reason: mild to mod pain/fever Last Admin: 04/04/18 20:58 Dose: 650 mg Amantadine HCl (Symmetrel) 100 mg PO TID [facility] Last Admin: 04/07/18 12:48 Dose: 100 mg Baclofen (Lioresal) 10 mg PO 4X/DAYCM [facility] Last Admin: 04/07/18 11:31 Dose: 10 mg Bisacodyl (Dulcolax) 10 mg RECTAL .PRN X 1 PRN PRN Reason: Constipation Enoxaparin Sodium (Lovenox) 40 mg SC DAILY@0600 [facility] Escitalopram Oxalate (Lexapro) 10 mg PO DAILY [facility] Last Admin: 04/07/18 07:44 Dose: 10 mg Famotidine (Pepcid) 20 mg PO BID [facility] Last Admin: 04/07/18 07:44 Dose: 20 mg Gabapentin (Neurontin) 300 mg PO TIDCM [facility] Last Admin: 04/07/18 11:31 Dose: 300 mg Hydroxyzine Pamoate (Vistaril Pamoate Capsule) 50 mg PO DAILY@2200 [facility] Last Admin: 04/06/18 20:43 Dose: 50 mg Ibuprofen (Motrin) 600 mg PO Q6H PRN PRN PRN Reason: SEVERE PAIN (6-07/23) Lorazepam (Ativan) 0.5 mg PO QHS PRN PRN PRN Reason: Insomnia Last Admin: 04/05/18 22:09 Dose: 0.5 mg Magnesium Hydroxide (Milk Of Magnesia) 30 ml PO .PRN X 1 PRN PRN Reason: Constipation Nicotine (Nicoderm Cq (Pbkc)) 14 mg TRANSDERM. 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 1. Physical debility secondary to [place]'s chorea, continue with therapy, on amantadine, baclofen and baclofen 2. Depression, on Lexapro. 3. Tobacco Dependence, on nicotine replacement patch. 4. DVT prophylaxis- Lovenox SC Code Visit Inpatient E&M: [id number] Subs Hosp L2
--- NOTE | 2018-04-07 15:54 | CASEMGMT ---
Social Work Met with pt, pt grandmother Shaniqua (whom pt lives with) and pt cousin Torri ([phone]). Torri led conversation with pt that returning home with Shaniqua is not a good option at this time. Shaniqua agreeing that she feels pt is much safer while he is at the rehab unit and that she feels he is unsafe at home. Torri brought up options with pt of [facility] assisted living and [facility] SNF. At this time pt does have medicare but does not have Medicaid. Torri states she will assist pt in completing Medicaid application and pt is agreeable to this as first step. Medicaid oriana given to Torri with pt permission. Torri is suggesting pt go to [facility] for short term SNF stay after rehab with possibility of transitioning to [facility] assisted living. Pt listening intently to conversation with little feedback. SW inquired with pt his feelings of this plan. Pt nods in agreement. Torri states that pt does not have a health care POA or living will as it was started and never completed. SW provided You have a right Booklet to pt and informed him of benefits of completing advance directives and that SW could assist if pt desired. Pt grandmother feels that [facility] would be an acceptable d/c plan. Torri states she did get apply for the transportation program for pt at [facility] and he did get approved and now has vouchers. SW will continue to follow for support and discharge planning. LISA Drew
--- NOTE | 2018-04-07 16:02 | CHAPLAIN ---
Type of Pastoral Visit ___ Initial Visit _x__ Follow-up Visit ___ On-call Visit ___ General Patient Visit ___ Spiritual Assessment ___ Family Conference ___ Bereavement ___ Rapid Response ___ Code Blue ___ Other (describe below) Pastoral Care Referral From x__ Patient ___ Family ___ Nurse ___ Physician ___ Butcher All Round ___ Dairy Lab Technician ___ Other (describe below) Sacrament/Intervention ___ Active listening ___ Anointing ___ Presybeterian ___ Bereavement ___ Communion ___ Nina exploration ___ ___ Life review ___ Prayer ___ Reconciliation ___ Sacrament of Sick _x__ Supportive presence ___ Wedding ___ Other (describe below) Pastoral Comments patient remembered me; family members were in room; brief check in and patient said that he is getting to know people and things are going well; pt appeared more at ease today; pt appears to like having people around; offered to return another time to visit with patient
[2018-04-07 21:35] VITALS: BP 141/92; PULSE 86; RESP 16; TEMP 36.8; O2SAT 94
[2018-04-07] MEDS: hydrOXYzine PAM 25 MG Capsule 50 MG PO (21:42)
[2018-04-07] MEDS: Senna/Docusate Sodium 1 Tablet 2 TABLET PO (21:44)
[2018-04-08] MEDS: Enoxaparin 40 MG/0.4 ML Syringe SC (06:13)
[2018-04-08] MEDS: Amantadine 100 MG Capsule PO ×3 (06:13→20:59)
[2018-04-08] MEDS: Famotidine 20 MG Tablet PO ×2 (08:03→20:59)
[2018-04-08] MEDS: Gabapentin 300 MG Capsule PO ×3 (08:04→17:50)
[2018-04-08] MEDS: Baclofen 10 MG Tablet PO ×4 (08:04→20:59)
[2018-04-08] MEDS: Escitalopram Oxalate 10 MG Tablet PO (08:04)
[2018-04-08 09:48] VITALS: O2SAT 98
[2018-04-08 10:00] VITALS: BP 119/90; PULSE 72; RESP 18; TEMP 36.7; O2SAT 97
--- NOTE | 2018-04-08 14:41 | PCM.PN.NEU ---
Subjective: Patient seen and examined. No new complaints. Tolerating therapy. Tolerating regular diet, No issues with GI/. - Physical Exam General: Alert, Oriented x3, Cooperative HEENT: Atraumatic, PERRLA, EOMI, Normocephalic Neck: Supple, No JVD, Negative Carotid Bruits Lungs: Clear to auscultation, Normal air movement Cardiovascular: Regular rate, No murmurs Abdomen: Bowel Sounds Present, Soft, Non Tender Extremities: No edema, Capillary Refill Less than 3 Seconds Skin: No rashes, No breakdown Musculoskeletal: No Tenderness to Palpation of Joints or Extremities Neurological: Cranial nerves II-XII grossly intact Psych/Mental Status: Normal Affect, Appropriate, Alert and oriented to time, place, person, mood and affect Vital Signs Temp Pulse Resp BP Pulse Ox 98.0 F 72 18 119/90 H 97 04/08/18 10:00 04/08/18 10:00 04/08/18 10:00 04/08/18 10:00 04/08/18 10:00 Oxygen Delivery Method Room Air Weight: 73 kg Body Mass Index (BMI) 21.2 Intake and Output for Last 24 Hours 04/06/18 04/07/18 04/08/18 23:59 23:59 23:59 Intake Total 1280 / 1280 1140 / 1140 360 / 360 Balance 1280 / 1280 1140 / 1140 360 / 360 Active Medications Acetaminophen (Tylenol) 650 mg PO Q6H PRN PRN PRN Reason: mild to mod pain/fever Last Admin: 04/04/18 20:58 Dose: 650 mg Amantadine HCl (Symmetrel) 100 mg PO TID [facility] Last Admin: 04/08/18 12:33 Dose: 100 mg Baclofen (Lioresal) 10 mg PO 4X/DAYCM [facility] Last Admin: 04/08/18 12:32 Dose: 10 mg Bisacodyl (Dulcolax) 10 mg RECTAL .PRN X 1 PRN PRN Reason: Constipation Enoxaparin Sodium (Lovenox) 40 mg SC DAILY@0600 [facility] Last Admin: 04/08/18 06:13 Dose: 40 mg Escitalopram Oxalate (Lexapro) 10 mg PO DAILY [facility] Last Admin: 04/08/18 08:04 Dose: 10 mg Famotidine (Pepcid) 20 mg PO BID [facility] Last Admin: 04/08/18 08:03 Dose: 20 mg Gabapentin (Neurontin) 300 mg PO TIDCM [facility] Last Admin: 04/08/18 12:32 Dose: 300 mg Hydroxyzine Pamoate (Vistaril Pamoate Capsule) 50 mg PO DAILY@2200 [facility] Last Admin: 04/07/18 21:42 Dose: 50 mg Ibuprofen (Motrin) 600 mg PO Q6H PRN PRN PRN Reason: SEVERE PAIN (6-10/10) Lorazepam (Ativan) 0.5 mg PO QHS PRN PRN PRN Reason: Insomnia Last Admin: 04/05/18 22:09 Dose: 0.5 mg Magnesium Hydroxide (Milk Of Magnesia) 30 ml PO .PRN X 1 PRN PRN Reason: Constipation Nicotine (Nicoderm Cq (Pbkc)) 14 mg TRANSDERM. 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 Goal of rehab is confucianist of prior level of functional independence. Plan: - Physical therapy for gait and balance - Occupational Therapy for ADLs - Speech therapy - As needed analgesics - Bowel protocol - DVT prophylaxis: Calixto hoses, SCDs, and Lovenox - Fall Precautions - [facility] discharge - [place]'s chorea - continue home medication regimen. Recommend tetrabenazine for movement disorder. [facility] pharmacy does not carry inpatient but will attempt to order in. - Depression-continue home Lexapro regimen. - Tobacco Dependence - nicotine replacement patch. discussed cessation benefits.
[2018-04-08 20:50] VITALS: BP 139/89; PULSE 68; RESP 16; TEMP 36.9; O2SAT 95
[2018-04-08] MEDS: hydrOXYzine PAM 25 MG Capsule 50 MG PO (20:59)
--- NOTE | 2018-04-09 02:23 | NURSING ---
Reviewed and agree with HEAD BANQUET WAITER/WAITRESS documentation and GIMs charting.
[2018-04-09] MEDS: Enoxaparin 40 MG/0.4 ML Syringe SC (06:45)
[2018-04-09] MEDS: Amantadine 100 MG Capsule PO ×3 (06:45→21:55)
[2018-04-09] MEDS: Escitalopram Oxalate 10 MG Tablet PO (08:00)
[2018-04-09] MEDS: Gabapentin 300 MG Capsule PO ×3 (08:00→17:05)
[2018-04-09] MEDS: Baclofen 10 MG Tablet PO ×4 (08:00→21:55)
[2018-04-09] MEDS: Famotidine 20 MG Tablet PO ×2 (08:00→21:56)
[2018-04-09 08:05] VITALS: BP 144/88; PULSE 80; RESP 18; TEMP 36.6; O2SAT 94
--- NOTE | 2018-04-09 10:17 | PCM.PN.NEU ---
Subjective: Patient seen and examined. No new issues, per nursing staff. He is tolerating therapy. No issues with GI/. - Physical Exam General: Alert, Oriented x3, Cooperative HEENT: Atraumatic, PERRLA, EOMI, Normocephalic Neck: Supple, No JVD, Negative Carotid Bruits Lungs: Clear to auscultation, Normal air movement Cardiovascular: Regular rate, No murmurs Abdomen: Bowel Sounds Present, Soft, Non Tender Extremities: No edema, Capillary Refill Less than 3 Seconds Skin: No rashes, No breakdown Musculoskeletal: No Tenderness to Palpation of Joints or Extremities Neurological: Cranial nerves II-XII grossly intact Psych/Mental Status: Normal Affect, Appropriate, Alert and oriented to time, place, person, mood and affect Vital Signs Temp Pulse Resp BP Pulse Ox 97.8 F 80 18 144/88 H 94 04/09/18 08:05 04/09/18 08:05 04/09/18 08:05 04/09/18 08:05 04/09/18 08:05 Oxygen Delivery Method Room Air Weight: 73.8 kg Body Mass Index (BMI) 21.2 Intake and Output for Last 24 Hours 04/07/18 04/08/18 04/09/18 23:59 23:59 23:59 Intake Total 1140 / 1140 1320 / 1320 440 / 440 Balance 1140 / 1140 1320 / 1320 440 / 440 Active Medications Acetaminophen (Tylenol) 650 mg PO Q6H PRN PRN PRN Reason: mild to mod pain/fever Last Admin: 04/04/18 20:58 Dose: 650 mg Amantadine HCl (Symmetrel) 100 mg PO TID [facility] Last Admin: 04/09/18 08:00 Dose: 100 mg Baclofen (Lioresal) 10 mg PO 4X/DAYCM [facility] Last Admin: 04/09/18 08:00 Dose: 10 mg Bisacodyl (Dulcolax) 10 mg RECTAL .PRN X 1 PRN PRN Reason: Constipation Enoxaparin Sodium (Lovenox) 40 mg SC DAILY@0600 [facility] Last Admin: 04/09/18 06:45 Dose: 40 mg Escitalopram Oxalate (Lexapro) 10 mg PO DAILY [facility] Last Admin: 04/09/18 08:00 Dose: 10 mg Famotidine (Pepcid) 20 mg PO BID [facility] Last Admin: 04/09/18 08:00 Dose: 20 mg Gabapentin (Neurontin) 300 mg PO TIDCM [facility] Last Admin: 04/09/18 08:00 Dose: 300 mg Hydroxyzine Pamoate (Vistaril Pamoate Capsule) 50 mg PO DAILY@2200 [facility] Last Admin: 04/08/18 20:59 Dose: 50 mg Ibuprofen (Motrin) 600 mg PO Q6H PRN PRN PRN Reason: SEVERE PAIN (6-10/10) Lorazepam (Ativan) 0.5 mg PO QHS PRN PRN PRN Reason: Insomnia Last Admin: 04/05/18 22:09 Dose: 0.5 mg Magnesium Hydroxide (Milk Of Magnesia) 30 ml PO .PRN X 1 PRN PRN Reason: Constipation Nicotine (Nicoderm Cq (Pbkc)) 14 mg TRANSDERM. 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 Goal of rehab is voodoo of prior level of functional independence. Plan: - Physical therapy for gait and balance - Occupational Therapy for ADLs - Speech therapy - As needed analgesics - Bowel protocol - DVT prophylaxis: Calixto hoses, SCDs, and Lovenox - Fall Precautions - Plan is placement in [facility] at discharge - [place]'s chorea - continue home medication regimen. Recommend tetrabenazine for movement disorder. [facility] pharmacy does not carry inpatient but will attempt to order in. - Depression-continue home Lexapro regimen. - Tobacco Dependence - nicotine replacement patch. discussed cessation benefits.
--- NOTE | 2018-04-09 10:27 | PN.NEURO_ITS ---
Subjective: Patient seen and examined. No new issues, per nursing staff. He is tolerating therapy. No issues with GI/. - Physical Exam General: Alert, Oriented x3, Cooperative HEENT: Atraumatic, PERRLA, EOMI, Normocephalic Neck: Supple, No JVD, Negative Carotid Bruits Lungs: Clear to auscultation, Normal air movement Cardiovascular: Regular rate, No murmurs Abdomen: Bowel Sounds Present, Soft, Non Tender Extremities: No edema, Capillary Refill Less than 3 Seconds Skin: No rashes, No breakdown Musculoskeletal: No Tenderness to Palpation of Joints or Extremities Neurological: Cranial nerves II-XII grossly intact Psych/Mental Status: Normal Affect, Appropriate, Alert and oriented to time, place, person, mood and affect Vital Signs Temp Pulse Resp BP Pulse Ox 97.8 F 80 18 144/88 H 94 04/09/18 08:05 04/09/18 08:05 04/09/18 08:05 04/09/18 08:05 04/09/18 08:05 Oxygen Delivery Method Room Air Weight: 73.8 kg Body Mass Index (BMI) 21.2 Intake and Output for Last 24 Hours 04/07/18 04/08/18 04/09/18 23:59 23:59 23:59 Intake Total 1140 / 1140 1320 / 1320 440 / 440 Balance 1140 / 1140 1320 / 1320 440 / 440 Active Medications Acetaminophen (Tylenol) 650 mg PO Q6H PRN PRN PRN Reason: mild to mod pain/fever Last Admin: 04/04/18 20:58 Dose: 650 mg Amantadine HCl (Symmetrel) 100 mg PO TID [facility] Last Admin: 04/09/18 08:00 Dose: 100 mg Baclofen (Lioresal) 10 mg PO 4X/DAYCM [facility] Last Admin: 04/09/18 08:00 Dose: 10 mg Bisacodyl (Dulcolax) 10 mg RECTAL .PRN X 1 PRN PRN Reason: Constipation Enoxaparin Sodium (Lovenox) 40 mg SC DAILY@0600 [facility] Last Admin: 04/09/18 06:45 Dose: 40 mg Escitalopram Oxalate (Lexapro) 10 mg PO DAILY [facility] Last Admin: 04/09/18 08:00 Dose: 10 mg Famotidine (Pepcid) 20 mg PO BID [facility] Last Admin: 04/09/18 08:00 Dose: 20 mg Gabapentin (Neurontin) 300 mg PO TIDCM [facility] Last Admin: 04/09/18 08:00 Dose: 300 mg Hydroxyzine Pamoate (Vistaril Pamoate Capsule) 50 mg PO DAILY@2200 [facility] Last Admin: 04/08/18 20:59 Dose: 50 mg Ibuprofen (Motrin) 600 mg PO Q6H PRN PRN PRN Reason: SEVERE PAIN (6-10/10) Lorazepam (Ativan) 0.5 mg PO QHS PRN PRN PRN Reason: Insomnia Last Admin: 04/05/18 22:09 Dose: 0.5 mg Magnesium Hydroxide (Milk Of Magnesia) 30 ml PO .PRN X 1 PRN PRN Reason: Constipation Nicotine (Nicoderm Cq (Pbkc)) 14 mg TRANSDERM. 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 Goal of rehab is presybeterian of prior level of functional independence. Plan: - Physical therapy for gait and balance - Occupational Therapy for ADLs - Speech therapy - As needed analgesics - Bowel protocol - DVT prophylaxis: Calixto hoses, SCDs, and Lovenox - Fall Precautions - Plan is placement in [facility] at discharge - [place]'s chorea - continue home medication regimen. Recommend tetrabenazine for movement disorder. [facility] pharmacy does not carry inpatient but will attempt to order in. - Depression-continue home Lexapro regimen. - Tobacco Dependence - nicotine replacement patch. discussed cessation benefits.
--- NOTE | 2018-04-09 14:56 | CASEMGMT ---
Addendum entered by Mini Mims 04/09/18 14:58: Correction Torri's contact number is: [phone] Original Note: Social Work Obtain medicaid application from Torri, patient cousin ([phone]). After looking at case further is appears that patient may already be active with medicaid. This social services technician making phone call to [facility]. Voicemail left for Kristine in regards to case. Torri confirming that patient may in fact have medicaid already in place but to not be sure about this. Will continue to follow. Mini GONZALEZ, PROCESS AREA SUPERVISOR
--- NOTE | 2018-04-09 16:08 | PCM.PN.HOSP ---
Subjective: Patient was seen and examined. Denies any complaints. Therapy is going well. Objective: General: Alert, Oriented x3, Cooperative, No apparent distress, chorea present HEENT: Atraumatic, PERRLA, EOMI, Normocephalic Oral: Moist Mucosa Neck: Supple Lungs: Clear to auscultation, Normal air movement Cardiovascular: Regular rate, Regular Rhythm, Normal S1, Normal S2, No murmurs Abdomen: Bowel Sounds Present, Soft, Non Tender, Non-Distended, No Hepato-splenomegaly Extremities: No edema Skin: No rashes, No breakdown Musculoskeletal: No Tenderness to Palpation of Joints or Extremities Lymphatic: No Cervical, Supraclavicular, or Inguinal Adenopathy Neurological: Cranial nerves II-XII grossly intact, chorea present Psych/Mental Status: Normal Affect, Appropriate Vitals/I&O's: Vital Signs Temp Pulse Resp BP Pulse Ox 97.8 F 80 18 144/88 H 94 04/09/18 08:05 04/09/18 08:05 04/09/18 08:05 04/09/18 08:05 04/09/18 08:05 Oxygen Delivery Method Room Air Weight: 73.8 kg Body Mass Index (BMI) 21.2 Intake and Output for Last 24 Hours 04/07/18 04/08/18 04/09/18 23:59 23:59 23:59 Intake Total 1140 / 1140 1320 / 1320 660 / 660 Balance 1140 / 1140 1320 / 1320 660 / 660 Current Medications Acetaminophen (Tylenol) 650 mg PO Q6H PRN PRN PRN Reason: mild to mod pain/fever Last Admin: 04/04/18 20:58 Dose: 650 mg Amantadine HCl (Symmetrel) 100 mg PO TID [facility] Last Admin: 04/09/18 08:00 Dose: 100 mg Baclofen (Lioresal) 10 mg PO 4X/DAYCM [facility] Last Admin: 04/09/18 11:49 Dose: 10 mg Bisacodyl (Dulcolax) 10 mg RECTAL .PRN X 1 PRN PRN Reason: Constipation Enoxaparin Sodium (Lovenox) 40 mg SC DAILY@0600 [facility] Last Admin: 04/09/18 06:45 Dose: 40 mg Escitalopram Oxalate (Lexapro) 10 mg PO DAILY [facility] Last Admin: 04/09/18 08:00 Dose: 10 mg Famotidine (Pepcid) 20 mg PO BID [facility] Last Admin: 04/09/18 08:00 Dose: 20 mg Gabapentin (Neurontin) 300 mg PO TIDCM [facility] Last Admin: 04/09/18 11:49 Dose: 300 mg Hydroxyzine Pamoate (Vistaril Pamoate Capsule) 50 mg PO DAILY@2200 [facility] Last Admin: 04/08/18 20:59 Dose: 50 mg Ibuprofen (Motrin) 600 mg PO Q6H PRN PRN PRN Reason: SEVERE PAIN (6-07/23) Lorazepam (Ativan) 0.5 mg PO QHS PRN PRN PRN Reason: Insomnia Last Admin: 04/05/18 22:09 Dose: 0.5 mg Magnesium Hydroxide (Milk Of Magnesia) 30 ml PO .PRN X 1 PRN PRN Reason: Constipation Nicotine (Nicoderm Cq (Pbkc)) 14 mg TRANSDERM. 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 1. Physical debility secondary to [place]'s chorea, on therapy, on amantadine, baclofen and baclofen 2. Depression, on Lexapro. 3. Tobacco Dependence, on nicotine replacement patch. 4. DVT prophylaxis- Lovenox SC Code Visit Inpatient E&M: 84691 Subs Hosp L2
--- NOTE | 2018-04-09 16:12 | PN_ITS ---
Subjective: Patient was seen and examined. Denies any complaints. Therapy is going well. Objective: General: Alert, Oriented x3, Cooperative, No apparent distress, chorea present HEENT: Atraumatic, PERRLA, EOMI, Normocephalic Oral: Moist Mucosa Neck: Supple Lungs: Clear to auscultation, Normal air movement Cardiovascular: Regular rate, Regular Rhythm, Normal S1, Normal S2, No murmurs Abdomen: Bowel Sounds Present, Soft, Non Tender, Non-Distended, No Hepato- splenomegaly Extremities: No edema Skin: No rashes, No breakdown Musculoskeletal: No Tenderness to Palpation of Joints or Extremities Lymphatic: No Cervical, Supraclavicular, or Inguinal Adenopathy Neurological: Cranial nerves II-XII grossly intact, chorea present Psych/Mental Status: Normal Affect, Appropriate Vitals/I&O's: Vital Signs Temp Pulse Resp BP Pulse Ox 97.8 F 80 18 144/88 H 94 04/09/18 08:05 04/09/18 08:05 04/09/18 08:05 04/09/18 08:05 04/09/18 08:05 Oxygen Delivery Method Room Air Weight: 73.8 kg Body Mass Index (BMI) 21.2 Intake and Output for Last 24 Hours 04/07/18 04/08/18 04/09/18 23:59 23:59 23:59 Intake Total 1140 / 1140 1320 / 1320 660 / 660 Balance 1140 / 1140 1320 / 1320 660 / 660 Current Medications Acetaminophen (Tylenol) 650 mg PO Q6H PRN PRN PRN Reason: mild to mod pain/fever Last Admin: 04/04/18 20:58 Dose: 650 mg Amantadine HCl (Symmetrel) 100 mg PO TID [facility] Last Admin: 04/09/18 08:00 Dose: 100 mg Baclofen (Lioresal) 10 mg PO 4X/DAYCM [facility] Last Admin: 04/09/18 11:49 Dose: 10 mg Bisacodyl (Dulcolax) 10 mg RECTAL .PRN X 1 PRN PRN Reason: Constipation Enoxaparin Sodium (Lovenox) 40 mg SC DAILY@0600 [facility] Last Admin: 04/09/18 06:45 Dose: 40 mg Escitalopram Oxalate (Lexapro) 10 mg PO DAILY [facility] Last Admin: 04/09/18 08:00 Dose: 10 mg Famotidine (Pepcid) 20 mg PO BID [facility] Last Admin: 04/09/18 08:00 Dose: 20 mg Gabapentin (Neurontin) 300 mg PO TIDCM [facility] Last Admin: 04/09/18 11:49 Dose: 300 mg Hydroxyzine Pamoate (Vistaril Pamoate Capsule) 50 mg PO DAILY@2200 [facility] Last Admin: 04/08/18 20:59 Dose: 50 mg Ibuprofen (Motrin) 600 mg PO Q6H PRN PRN PRN Reason: SEVERE PAIN (6-07/23) Lorazepam (Ativan) 0.5 mg PO QHS PRN PRN PRN Reason: Insomnia Last Admin: 04/05/18 22:09 Dose: 0.5 mg Magnesium Hydroxide (Milk Of Magnesia) 30 ml PO .PRN X 1 PRN PRN Reason: Constipation Nicotine (Nicoderm Cq (Pbkc)) 14 mg TRANSDERM. 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 1. Physical debility secondary to [place]'s chorea, on therapy, on amantadine , baclofen and baclofen 2. Depression, on Lexapro. 3. Tobacco Dependence, on nicotine replacement patch. 4. DVT prophylaxis- Lovenox SC Code Visit Inpatient E&M: 60550 Subs Hosp L2
[2018-04-09] MEDS: hydrOXYzine PAM 25 MG Capsule 50 MG PO (21:54)
[2018-04-09 22:00] VITALS: BP 148/95; PULSE 84; RESP 18; TEMP 36.4; O2SAT 96
--- NOTE | 2018-04-10 02:54 | NURSING ---
REVIEWED AND AGREE WITH AUTOMOBILE BODY WORKER'S FIM AND HANDOFF CHARTING.
[2018-04-10] MEDS: Amantadine 100 MG Capsule PO ×3 (06:11→21:30)
[2018-04-10] MEDS: Enoxaparin 40 MG/0.4 ML Syringe SC (06:11)
[2018-04-10] MEDS: Famotidine 20 MG Tablet PO ×2 (07:39→21:30)
[2018-04-10] MEDS: Baclofen 10 MG Tablet PO ×4 (07:39→21:30)
[2018-04-10] MEDS: Escitalopram Oxalate 10 MG Tablet PO (07:40)
[2018-04-10] MEDS: Senna/Docusate Sodium 1 Tablet 2 TABLET PO ×2 (07:40→21:30)
[2018-04-10] MEDS: Gabapentin 300 MG Capsule PO ×3 (07:40→17:22)
[2018-04-10 08:00] VITALS: BP 123/82; PULSE 79; RESP 20; TEMP 36.5; O2SAT 95
--- NOTE | 2018-04-10 12:02 | CASEMGMT ---
Social Work Telephone call from Kristine at [employer] [facility]. Kristine reporting that patient does currently have medicaid and that patient rifle case repairer is Mely Palacios: [phone]. Will continue to follow. Mini GONZALEZ, SCAFFOLD BUILDER
--- NOTE | 2018-04-10 13:16 | PCM.PN.NEU ---
Subjective: Staffed in team meeting. Family at bedside. Questions answered. With Physical therapy, He is stand by assist for standing, and pivoting. He is able to walk 350 feet at standby assist with out an assistive device. He is able to walk up and down 10 steps using one or two hand rails at stand by assist. With Occupational therapy, He was able to take a shower without the assistance of the therapist, at supervision level. He is able to do all his own personal care. With Speech therapy, he is tolerating a auto body service mechanic soft diet with thin liquids. Will continue to work on controlling his breathing, his rate of speech, will do a cognitive evaluation later today. With Nursing there are no issues. The plan is to re-team on 04/17. slipcover cutter plan is discharge on 04/19 to [facility]. - Physical Exam General: Alert, Oriented x3, Cooperative HEENT: Atraumatic, PERRLA, EOMI, Normocephalic Neck: Supple, No JVD, Negative Carotid Bruits Lungs: Clear to auscultation, Normal air movement Cardiovascular: Regular rate, No murmurs Abdomen: Bowel Sounds Present, Soft, Non Tender Extremities: No edema, Capillary Refill Less than 3 Seconds Skin: No rashes, No breakdown Musculoskeletal: No Tenderness to Palpation of Joints or Extremities Neurological: Cranial nerves II-XII grossly intact Psych/Mental Status: Normal Affect, Appropriate, Alert and oriented to time, place, person, mood and affect Vital Signs Temp Pulse Resp BP Pulse Ox 97.7 F L 79 20 H 123/82 H 95 04/10/18 08:00 04/10/18 08:00 04/10/18 08:00 04/10/18 08:00 04/10/18 08:00 Oxygen Delivery Method Room Air Weight: 73.8 kg Body Mass Index (BMI) 21.2 Intake and Output for Last 24 Hours 04/08/18 04/09/18 04/10/18 23:59 23:59 23:59 Intake Total 1320 / 1320 660 / 660 360 / 360 Balance 1320 / 1320 660 / 660 360 / 360 Active Medications Acetaminophen (Tylenol) 650 mg PO Q6H PRN PRN PRN Reason: mild to mod pain/fever Last Admin: 04/04/18 20:58 Dose: 650 mg Amantadine HCl (Symmetrel) 100 mg PO TID [facility] Last Admin: 04/10/18 06:11 Dose: 100 mg Baclofen (Lioresal) 10 mg PO 4X/DAYCM [facility] Last Admin: 04/10/18 11:56 Dose: 10 mg Bisacodyl (Dulcolax) 10 mg RECTAL .PRN X 1 PRN PRN Reason: Constipation Enoxaparin Sodium (Lovenox) 40 mg SC DAILY@0600 [facility] Last Admin: 04/10/18 06:11 Dose: 40 mg Escitalopram Oxalate (Lexapro) 10 mg PO DAILY [facility] Last Admin: 04/10/18 07:40 Dose: 10 mg Famotidine (Pepcid) 20 mg PO BID [facility] Last Admin: 04/10/18 07:39 Dose: 20 mg Gabapentin (Neurontin) 300 mg PO TIDCM [facility] Last Admin: 04/10/18 11:56 Dose: 300 mg Hydroxyzine Pamoate (Vistaril Pamoate Capsule) 50 mg PO DAILY@2200 [facility] Last Admin: 04/09/18 21:54 Dose: 50 mg Ibuprofen (Motrin) 600 mg PO Q6H PRN PRN PRN Reason: SEVERE PAIN (6-10/10) Lorazepam (Ativan) 0.5 mg PO QHS PRN PRN PRN Reason: Insomnia Last Admin: 04/05/18 22:09 Dose: 0.5 mg Magnesium Hydroxide (Milk Of Magnesia) 30 ml PO .PRN X 1 PRN PRN Reason: Constipation Nicotine (Nicoderm Cq (Pbkc)) 14 mg TRANSDERM. DAILY [facility] Last Admin: 04/10/18 07:39 Dose: 14 mg Nutritional Formula (Lactose Free) (Ensure Enlive) 120 ml PO 4X/DAY [facility] Last Admin: 04/10/18 07:40 Dose: 120 ml Senna/Docusate Sodium (Senokot-S, Fani-Colace) 2 tablet PO BID [facility] Last Admin: 04/10/18 07:40 Dose: 2 tablet Medical Necessity - Tobacco Use Smoking Status: Current every day smoker Tobacco Use: Cigarettes Assessment/Plan Debility 2/2 [place] Chorea disease. Goal of rehab is confucianist of prior level of functional independence. Plan: - Physical therapy for gait and balance - Occupational Therapy for ADLs - Speech therapy - As needed analgesics - Bowel protocol - DVT prophylaxis: Calixto [place], SCDs, and Lovenox - Fall Precautions - Plan is placement in [facility] Facility at discharge - [place]'s chorea - continue home medication regimen. Recommend tetrabenazine for movement disorder. [facility] pharmacy does not carry inpatient but will attempt to order in. - Depression-continue home Lexapro regimen. - Tobacco Dependence - nicotine replacement patch. discussed cessation benefits.
--- NOTE | 2018-04-10 13:26 | PN.NEURO_ITS ---
Subjective: Staffed in team meeting. Family at bedside. Questions answered. With Physical therapy, He is stand by assist for standing, and pivoting. He is able to walk 350 feet at standby assist with out an assistive device. He is able to walk up and down 10 steps using one or two hand rails at stand by assist. With Occupational therapy, He was able to take a shower without the assistance of the therapist, at supervision level. He is able to do all his own personal care. With Speech therapy, he is tolerating a linoleum mechanic soft diet with thin liquids. Will continue to work on controlling his breathing, his rate of speech , will do a cognitive evaluation later today. With Nursing there are no issues. The plan is to re-team on 04/17. terminal make up operator plan is discharge on 04/[address] [facility]. - Physical Exam General: Alert, Oriented x3, Cooperative HEENT: Atraumatic, PERRLA, EOMI, Normocephalic Neck: Supple, No JVD, Negative Carotid Bruits Lungs: Clear to auscultation, Normal air movement Cardiovascular: Regular rate, No murmurs Abdomen: Bowel Sounds Present, Soft, Non Tender Extremities: No edema, Capillary Refill Less than 3 Seconds Skin: No rashes, No breakdown Musculoskeletal: No Tenderness to Palpation of Joints or Extremities Neurological: Cranial nerves II-XII grossly intact Psych/Mental Status: Normal Affect, Appropriate, Alert and oriented to time, place, person, mood and affect Vital Signs Temp Pulse Resp BP Pulse Ox 97.7 F L 79 20 H 123/82 H 95 04/10/18 08:00 04/10/18 08:00 04/10/18 08:00 04/10/18 08:00 04/10/18 08:00 Oxygen Delivery Method Room Air Weight: 73.8 kg Body Mass Index (BMI) 21.2 Intake and Output for Last 24 Hours 04/08/18 04/09/18 04/10/18 23:59 23:59 23:59 Intake Total 1320 / 1320 660 / 660 360 / 360 Balance 1320 / 1320 660 / 660 360 / 360 Active Medications Acetaminophen (Tylenol) 650 mg PO Q6H PRN PRN PRN Reason: mild to mod pain/fever Last Admin: 04/04/18 20:58 Dose: 650 mg Amantadine HCl (Symmetrel) 100 mg PO TID [facility] Last Admin: 04/10/18 06:11 Dose: 100 mg Baclofen (Lioresal) 10 mg PO 4X/DAYCM [facility] Last Admin: 04/10/18 11:56 Dose: 10 mg Bisacodyl (Dulcolax) 10 mg RECTAL .PRN X 1 PRN PRN Reason: Constipation Enoxaparin Sodium (Lovenox) 40 mg SC DAILY@0600 [facility] Last Admin: 04/10/18 06:11 Dose: 40 mg Escitalopram Oxalate (Lexapro) 10 mg PO DAILY [facility] Last Admin: 04/10/18 07:40 Dose: 10 mg Famotidine (Pepcid) 20 mg PO BID [facility] Last Admin: 04/10/18 07:39 Dose: 20 mg Gabapentin (Neurontin) 300 mg PO TIDCM [facility] Last Admin: 04/10/18 11:56 Dose: 300 mg Hydroxyzine Pamoate (Vistaril Pamoate Capsule) 50 mg PO DAILY@2200 [facility] Last Admin: 04/09/18 21:54 Dose: 50 mg Ibuprofen (Motrin) 600 mg PO Q6H PRN PRN PRN Reason: SEVERE PAIN (6-10/10) Lorazepam (Ativan) 0.5 mg PO QHS PRN PRN PRN Reason: Insomnia Last Admin: 04/05/18 22:09 Dose: 0.5 mg Magnesium Hydroxide (Milk Of Magnesia) 30 ml PO .PRN X 1 PRN PRN Reason: Constipation Nicotine (Nicoderm Cq (Pbkc)) 14 mg TRANSDERM. DAILY [facility] Last Admin: 04/10/18 07:39 Dose: 14 mg Nutritional Formula (Lactose Free) (Ensure Enlive) 120 ml PO 4X/DAY [facility] Last Admin: 04/10/18 07:40 Dose: 120 ml Senna/Docusate Sodium (Senokot-S, Fani-Colace) 2 tablet PO BID [facility] Last Admin: 04/10/18 07:40 Dose: 2 tablet Medical Necessity - Tobacco Use Smoking Status: Current every day smoker Tobacco Use: Cigarettes Assessment/Plan Debility 2/2 [place] Chorea disease. Goal of rehab is lutheran of prior level of functional independence. Plan: - Physical therapy for gait and balance - Occupational Therapy for ADLs - Speech therapy - As needed analgesics - Bowel protocol - DVT prophylaxis: Calixto [place] tor[place], SCDs, and Lovenox - Fall Precautions - Plan is placement in [facility] at discharge - [place]'s chorea - continue home medication regimen. Recommend tetrabenazine for movement disorder. [facility] pharmacy does not carry inpatient but will attempt to order in. - Depression-continue home Lexapro regimen. - Tobacco Dependence - nicotine replacement patch. discussed cessation benefits.
--- NOTE | 2018-04-10 16:56 | CASEMGMT ---
Team meeting held. Patient present as well as patient family. Patient approved 16 Medicare days with a discharge on or by 04/19/18. Team establishing discharge date for 04/19/18. Patient plans to transition to [facility] ([facility]) at time of discharge. Patient to continue with further care and treatment on the Inpatient Rehab Unit until time of discharge. Patient to be re-teamed next week. Support given. Proposed discharge date: 04/19/18 Will continue to follow for discharge planning and support. Mini GONZALEZ, SWITCHBOARD INSPECTOR
[2018-04-10 21:22] VITALS: BP 134/98; PULSE 97; RESP 20; TEMP 36.4; O2SAT 95
[2018-04-10 21:24] VITALS: PULSE 97; RESP 20; O2SAT 95
[2018-04-10] MEDS: hydrOXYzine PAM 25 MG Capsule 50 MG PO (21:29)
[2018-04-11] MEDS: Amantadine 100 MG Capsule PO ×3 (05:56→20:04)
[2018-04-11] MEDS: Enoxaparin 40 MG/0.4 ML Syringe SC (05:56)
--- NOTE | 2018-04-11 07:18 | NURSING ---
Reviewed and agree with LPNs fims and handoff
[2018-04-11] MEDS: Famotidine 20 MG Tablet PO ×2 (07:43→20:04)
[2018-04-11] MEDS: Baclofen 10 MG Tablet PO ×4 (07:43→20:04)
[2018-04-11] MEDS: Senna/Docusate Sodium 1 Tablet 2 TABLET PO ×2 (07:43→20:04)
[2018-04-11] MEDS: Gabapentin 300 MG Capsule PO ×3 (07:43→17:16)
[2018-04-11] MEDS: Escitalopram Oxalate 10 MG Tablet PO (07:43)
[2018-04-11 07:59] VITALS: BP 122/80; PULSE 63; RESP 16; TEMP 36.8; O2SAT 96
--- NOTE | 2018-04-11 13:10 | PN_ITS ---
Subjective: Patient was seen and examined. No new complaints. Therapy is going well. He will be discharged later on next week to a long-term facility. Denies chest pain, dizziness, SOB. Objective: Physical exam: General: Alert, Oriented x3, Cooperative, No apparent distress, chorea present HEENT: Atraumatic, PERRLA, EOMI, Normocephalic Oral: Moist Mucosa Neck: Supple Lungs: Clear to auscultation, Normal air movement Cardiovascular: Regular rate, Regular Rhythm, Normal S1, Normal S2, No murmurs Abdomen: Bowel Sounds Present, Soft, Non Tender, Non-Distended, No Hepato- splenomegaly Extremities: No edema Skin: No rashes, No breakdown Musculoskeletal: No Tenderness to Palpation of Joints or Extremities Lymphatic: No Cervical, Supraclavicular, or Inguinal Adenopathy Neurological: Cranial nerves II-XII grossly intact, chorea present Psych/Mental Status: Normal Affect, Appropriate Vitals/I&O's: Vital Signs Temp Pulse Resp BP Pulse Ox 98.3 F 63 16 122/80 H 96 04/11/18 07:59 04/11/18 07:59 04/11/18 07:59 04/11/18 07:59 04/11/18 07:59 Oxygen Delivery Method Room Air Weight: 73.8 kg Body Mass Index (BMI) 21.2 Intake and Output for Last 24 Hours 04/09/18 04/10/18 04/11/18 23:59 23:59 23:59 Intake Total 660 / 660 720 / 720 Balance 660 / 660 720 / 720 Current Medications Acetaminophen (Tylenol) 650 mg PO Q6H PRN PRN PRN Reason: mild to mod pain/fever Last Admin: 04/04/18 20:58 Dose: 650 mg Amantadine HCl (Symmetrel) 100 mg PO TID [facility] Last Admin: 04/11/18 05:56 Dose: 100 mg Baclofen (Lioresal) 10 mg PO 4X/DAYCM [facility] Last Admin: 04/11/18 11:07 Dose: 10 mg Bisacodyl (Dulcolax) 10 mg RECTAL .PRN X 1 PRN PRN Reason: Constipation Enoxaparin Sodium (Lovenox) 40 mg SC DAILY@0600 [facility] Last Admin: 04/11/18 05:56 Dose: 40 mg Escitalopram Oxalate (Lexapro) 10 mg PO DAILY [facility] Last Admin: 04/11/18 07:43 Dose: 10 mg Famotidine (Pepcid) 20 mg PO BID [facility] Last Admin: 04/11/18 07:43 Dose: 20 mg Gabapentin (Neurontin) 300 mg PO TIDCM [facility] Last Admin: 04/11/18 11:07 Dose: 300 mg Hydroxyzine Pamoate (Vistaril Pamoate Capsule) 50 mg PO DAILY@2200 [facility] Last Admin: 04/10/18 21:29 Dose: 50 mg Ibuprofen (Motrin) 600 mg PO Q6H PRN PRN PRN Reason: SEVERE PAIN (6-07/23) Lorazepam (Ativan) 0.5 mg PO QHS PRN PRN PRN Reason: Insomnia Last Admin: 04/05/18 22:09 Dose: 0.5 mg Magnesium Hydroxide (Milk Of Magnesia) 30 ml PO .PRN X 1 PRN PRN Reason: Constipation Nicotine (Nicoderm Cq (Pbkc)) 14 mg TRANSDERM. 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 1. 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 2. Depression, on Lexapro. 3. Tobacco Dependence, on nicotine replacement patch. 4. DVT prophylaxis- Lovenox SC Code Visit Inpatient E&M: 59181 Subs Hosp L2
[2018-04-11] MEDS: hydrOXYzine PAM 25 MG Capsule 50 MG PO (20:03)
[2018-04-11 20:07] VITALS: BP 120/91; PULSE 81; RESP 20; TEMP 36.4; O2SAT 95
[2018-04-11 20:08] VITALS: PULSE 81; RESP 20; O2SAT 95
--- NOTE | 2018-04-12 03:07 | NURSING ---
Reivewed and agree with LPNs fims and handoff
[2018-04-12] MEDS: Enoxaparin 40 MG/0.4 ML Syringe SC (05:49)
[2018-04-12] MEDS: Amantadine 100 MG Capsule PO ×3 (05:49→21:43)
[2018-04-12] MEDS: Senna/Docusate Sodium 1 Tablet 2 TABLET PO (07:42)
[2018-04-12 07:43] VITALS: BP 131/80; PULSE 71; RESP 18; TEMP 36.8; O2SAT 95
[2018-04-12] MEDS: Baclofen 10 MG Tablet PO ×4 (07:43→21:43)
[2018-04-12] MEDS: Gabapentin 300 MG Capsule PO ×3 (07:43→18:11)
[2018-04-12] MEDS: Famotidine 20 MG Tablet PO ×2 (07:43→21:43)
[2018-04-12] MEDS: Escitalopram Oxalate 10 MG Tablet PO (07:43)
[2018-04-12] MEDS: hydrOXYzine PAM 25 MG Capsule 50 MG PO (21:43)
[2018-04-12 22:00] VITALS: BP 128/83; PULSE 81; RESP 16; TEMP 36.7; O2SAT 94
--- NOTE | 2018-04-13 03:26 | NURSING ---
Reviewed and agree with GENERAL OFFICE CLERK documentation and FIMS charting
[2018-04-13] MEDS: Enoxaparin 40 MG/0.4 ML Syringe SC (06:30)
[2018-04-13] MEDS: Amantadine 100 MG Capsule PO ×3 (06:30→21:47)
[2018-04-13 08:35] VITALS: BP 119/77; PULSE 73; RESP 16; TEMP 36.8; O2SAT 95
[2018-04-13] MEDS: Famotidine 20 MG Tablet PO ×2 (08:59→21:47)
[2018-04-13] MEDS: Gabapentin 300 MG Capsule PO ×3 (08:59→17:52)
[2018-04-13] MEDS: Baclofen 10 MG Tablet PO ×4 (09:00→21:47)
[2018-04-13] MEDS: Senna/Docusate Sodium 1 Tablet 2 TABLET PO (09:00)
[2018-04-13] MEDS: Escitalopram Oxalate 10 MG Tablet PO (09:00)
[2018-04-13 10:00] VITALS: PULSE 73; RESP 16; O2SAT 95
[2018-04-13 18:15] VITALS: BP 121/79; PULSE 78; RESP 18; TEMP 36.6; O2SAT 95
[2018-04-13] MEDS: hydrOXYzine PAM 25 MG Capsule 50 MG PO (21:47)
--- NOTE | 2018-04-13 23:16 | NURSING ---
alarm was sounding from pt's room. pt noted to be up walking in room with no assistance to close his door. pt had PA on prior to staff exiting room at 10pm. PA was found unhooked and laying in pt bed. pt reminded that staff wants him to be safe and we would like him to use his call light for any assistance he may need. pt was apologetic and agreed to use call light. PA and bed exit alarm in place before this nurse left room.
[2018-04-13] MEDS: LORazepam 0.5 MG Tablet PO (23:27)
--- NOTE | 2018-04-14 02:15 | NURSING ---
Reviewed and agree with CHILI POWDER MIXER documentation and FIMS charting.
[2018-04-14] MEDS: Amantadine 100 MG Capsule PO ×3 (06:26→21:23)
[2018-04-14] MEDS: Enoxaparin 40 MG/0.4 ML Syringe SC (06:26)
[2018-04-14] MEDS: Gabapentin 300 MG Capsule PO ×3 (07:39→17:12)
[2018-04-14] MEDS: Senna/Docusate Sodium 1 Tablet 2 TABLET PO (07:39)
[2018-04-14] MEDS: Escitalopram Oxalate 10 MG Tablet PO (07:39)
[2018-04-14] MEDS: Famotidine 20 MG Tablet PO ×2 (07:39→21:23)
[2018-04-14] MEDS: Baclofen 10 MG Tablet PO ×4 (07:39→21:23)
[2018-04-14 07:45] VITALS: BP 119/90; PULSE 83; RESP 20; TEMP 36.4; O2SAT 95
--- NOTE | 2018-04-14 11:28 | PCM.PN.NEU ---
Subjective: Patient seen and examined. No new complaints. Tolerating therapy. Denies any shortness of breath or chest pains. The plan is discharge on Thursday 04/19 to a Long Term Facility. - Physical Exam General: Alert, Oriented x3, Cooperative HEENT: Atraumatic, PERRLA, EOMI, Normocephalic Neck: Supple, No JVD, Negative Carotid Bruits Lungs: Clear to auscultation, Normal air movement Cardiovascular: Regular rate, No murmurs Abdomen: Bowel Sounds Present, Soft, Non Tender Extremities: No edema, Capillary Refill Less than 3 Seconds Skin: No rashes, No breakdown Musculoskeletal: No Tenderness to Palpation of Joints or Extremities Neurological: Cranial nerves II-XII grossly intact Psych/Mental Status: Normal Affect, Appropriate, Alert and oriented to time, place, person, mood and affect Vital Signs Temp Pulse Resp BP Pulse Ox 97.6 F L 83 20 H 119/90 H 95 04/14/18 07:45 04/14/18 07:45 04/14/18 07:45 04/14/18 07:45 04/14/18 07:45 Oxygen Delivery Method Room Air Weight: 73.8 kg Body Mass Index (BMI) 21.2 Intake and Output for Last 24 Hours 04/12/18 04/13/18 04/14/18 23:59 23:59 23:59 Intake Total 1120 / 1120 440 / 440 480 / 480 Balance 1120 / 1120 440 / 440 480 / 480 Active Medications Acetaminophen (Tylenol) 650 mg PO Q6H PRN PRN PRN Reason: mild to mod pain/fever Last Admin: 04/04/18 20:58 Dose: 650 mg Amantadine HCl (Symmetrel) 100 mg PO TID [facility] Last Admin: 04/14/18 06:26 Dose: 100 mg Baclofen (Lioresal) 10 mg PO 4X/DAYCM [facility] Last Admin: 04/14/18 07:39 Dose: 10 mg Bisacodyl (Dulcolax) 10 mg RECTAL .PRN X 1 PRN PRN Reason: Constipation Enoxaparin Sodium (Lovenox) 40 mg SC DAILY@0600 [facility] Last Admin: 04/14/18 06:26 Dose: 40 mg Escitalopram Oxalate (Lexapro) 10 mg PO DAILY [facility] Last Admin: 04/14/18 07:39 Dose: 10 mg Famotidine (Pepcid) 20 mg PO BID [facility] Last Admin: 04/14/18 07:39 Dose: 20 mg Gabapentin (Neurontin) 300 mg PO TIDCM [facility] Last Admin: 04/14/18 07:39 Dose: 300 mg Hydroxyzine Pamoate (Vistaril Pamoate Capsule) 50 mg PO DAILY@2200 [facility] Last Admin: 04/13/18 21:47 Dose: 50 mg Ibuprofen (Motrin) 600 mg PO Q6H PRN PRN PRN Reason: SEVERE PAIN (6-1010) Lorazepam (Ativan) 0.5 mg PO QHS PRN PRN PRN Reason: Insomnia Last Admin: 04/13/18 23:27 Dose: 0.5 mg Magnesium Hydroxide (Milk Of Magnesia) 30 ml PO .PRN X 1 PRN PRN Reason: Constipation Nicotine (Nicoderm Cq (Pbkc)) 14 mg TRANSDERM. DAILY [facility] Last Admin: 04/14/18 07:38 Dose: 14 mg Nutritional Formula (Lactose Free) (Ensure Enlive) 120 ml PO 4X/DAY [facility] Last Admin: 04/14/18 07:39 Dose: 120 ml Senna/Docusate Sodium (Senokot-S, Fani-Colace) 2 tablet PO BID [facility] Last Admin: 04/14/18 07:39 Dose: 2 tablet Medical Necessity - Tobacco Use Smoking Status: Current every day smoker Tobacco Use: Cigarettes Assessment/Plan Debility 2/2 [place] Chorea disease. Goal of rehab is tenriism of prior level of functional independence. Plan: - Physical therapy for gait and balance - Occupational Therapy for ADLs - Speech therapy - As needed analgesics - Bowel protocol - DVT prophylaxis: Aclixto hoses, SCDs, and Lovenox - Fall Precautions - Plan is placement in [facility] at discharge - Yokasta's chorea - continue home medication regimen. Recommend tetrabenazine for movement disorder. [facility] pharmacy does not carry inpatient but will attempt to order in. - Depression-continue home Lexapro regimen. - Tobacco Dependence - nicotine replacement patch. discussed cessation benefits. - Plan is discharge on Saturday to SNF
--- NOTE | 2018-04-14 12:11 | PN.NEURO_ITS ---
Subjective: Patient seen and examined. No new complaints. Tolerating therapy. Denies any shortness of breath or chest pains. The plan is discharge on Thursday 04/19 to a Detention Facility. - Physical Exam General: Alert, Oriented x3, Cooperative HEENT: Atraumatic, PERRLA, EOMI, Normocephalic Neck: Supple, No JVD, Negative Carotid Bruits Lungs: Clear to auscultation, Normal air movement Cardiovascular: Regular rate, No murmurs Abdomen: Bowel Sounds Present, Soft, Non Tender Extremities: No edema, Capillary Refill Less than 3 Seconds Skin: No rashes, No breakdown Musculoskeletal: No Tenderness to Palpation of Joints or Extremities Neurological: Cranial nerves II-XII grossly intact Psych/Mental Status: Normal Affect, Appropriate, Alert and oriented to time, place, person, mood and affect Vital Signs Temp Pulse Resp BP Pulse Ox 97.6 F L 83 20 H 119/90 H 95 04/14/18 07:45 04/14/18 07:45 04/14/18 07:45 04/14/18 07:45 04/14/18 07:45 Oxygen Delivery Method Room Air Weight: 73.8 kg Body Mass Index (BMI) 21.2 Intake and Output for Last 24 Hours 04/12/18 04/13/18 04/14/18 23:59 23:59 23:59 Intake Total 1120 / 1120 440 / 440 480 / 480 Balance 1120 / 1120 440 / 440 480 / 480 Active Medications Acetaminophen (Tylenol) 650 mg PO Q6H PRN PRN PRN Reason: mild to mod pain/fever Last Admin: 04/04/18 20:58 Dose: 650 mg Amantadine HCl (Symmetrel) 100 mg PO TID [facility] Last Admin: 04/14/18 06:26 Dose: 100 mg Baclofen (Lioresal) 10 mg PO 4X/DAYCM [facility] Last Admin: 04/14/18 07:39 Dose: 10 mg Bisacodyl (Dulcolax) 10 mg RECTAL .PRN X 1 PRN PRN Reason: Constipation Enoxaparin Sodium (Lovenox) 40 mg SC DAILY@0600 [facility] Last Admin: 04/14/18 06:26 Dose: 40 mg Escitalopram Oxalate (Lexapro) 10 mg PO DAILY [facility] Last Admin: 04/14/18 07:39 Dose: 10 mg Famotidine (Pepcid) 20 mg PO BID [facility] Last Admin: 04/14/18 07:39 Dose: 20 mg Gabapentin (Neurontin) 300 mg PO TIDCM [facility] Last Admin: 04/14/18 07:39 Dose: 300 mg Hydroxyzine Pamoate (Vistaril Pamoate Capsule) 50 mg PO DAILY@2200 [facility] Last Admin: 04/13/18 21:47 Dose: 50 mg Ibuprofen (Motrin) 600 mg PO Q6H PRN PRN PRN Reason: SEVERE PAIN (6-1010) Lorazepam (Ativan) 0.5 mg PO QHS PRN PRN PRN Reason: Insomnia Last Admin: 04/13/18 23:27 Dose: 0.5 mg Magnesium Hydroxide (Milk Of Magnesia) 30 ml PO .PRN X 1 PRN PRN Reason: Constipation Nicotine (Nicoderm Cq (Pbkc)) 14 mg TRANSDERM. DAILY [facility] Last Admin: 04/14/18 07:38 Dose: 14 mg Nutritional Formula (Lactose Free) (Ensure Enlive) 120 ml PO 4X/DAY [facility] Last Admin: 04/14/18 07:39 Dose: 120 ml Senna/Docusate Sodium (Senokot-S, Fani-Colace) 2 tablet PO BID [facility] Last Admin: 04/14/18 07:39 Dose: 2 tablet Medical Necessity - Tobacco Use Smoking Status: Current every day smoker Tobacco Use: Cigarettes Assessment/Plan Debility 2/2 [place] Chorea disease. Goal of rehab is voodoo of prior level of functional independence. Plan: - Physical therapy for gait and balance - Occupational Therapy for ADLs - Speech therapy - As needed analgesics - Bowel protocol - DVT prophylaxis: Calixto hoses, SCDs, and Lovenox - Fall Precautions - [facility] - Yokasta's chorea - continue home medication regimen. Recommend tetrabenazine for movement disorder. [facility] pharmacy does not carry inpatient but will attempt to order in. - Depression-continue home Lexapro regimen. - Tobacco Dependence - nicotine replacement patch. discussed cessation benefits. - Plan is discharge on Saturday to SNF
--- NOTE | 2018-04-14 16:21 | CHAPLAIN ---
Type of Pastoral Visit ___ Initial Visit _x__ Follow-up Visit ___ On-call Visit ___ General Patient Visit ___ Spiritual Assessment ___ Family Conference ___ Bereavement ___ Rapid Response ___ Code Blue ___ Other (describe below) Pastoral Care Referral From _x__ Patient ___ Family ___ Nurse ___ Physician ___ Informatics Consultant ___ Lime Filter Operator ___ Other (describe below) Sacrament/Intervention _x__ Active listening ___ Anointing ___ Quaker ___ Bereavement ___ Communion _x__ Nina exploration ___ _x__ Life review _x__ Prayer ___ Reconciliation ___ Sacrament of Sick _x__ Supportive presence ___ Wedding ___ Other (describe below) Pastoral Comments this is first real visit when patient was not having company; pt was able to talk about his life history, interests, health issues, perspective on nina and God; pt tells me he believes everyone is special and unique; however later pt said that he did not consider his life to be important; we talked about his perspective; prayer welcomed
[2018-04-14 19:35] VITALS: BP 129/83; PULSE 86; RESP 20; TEMP 36.4; O2SAT 97
[2018-04-14] MEDS: LORazepam 0.5 MG Tablet PO (21:29)
[2018-04-14] MEDS: hydrOXYzine PAM 25 MG Capsule 50 MG PO (21:53)
--- NOTE | 2018-04-15 02:02 | NURSING ---
REVIEWED AND AGREE WITH BELL ATTENDANT'S FIM AND HANDOFF CHARTING.
[2018-04-15] MEDS: Enoxaparin 40 MG/0.4 ML Syringe SC (05:09)
[2018-04-15] MEDS: Amantadine 100 MG Capsule PO ×3 (05:10→20:40)
[2018-04-15 07:43] VITALS: BP 127/84; PULSE 90; RESP 18; TEMP 36.5; O2SAT 98
[2018-04-15] MEDS: Famotidine 20 MG Tablet PO ×2 (07:58→20:40)
[2018-04-15] MEDS: Baclofen 10 MG Tablet PO ×4 (07:59→20:40)
[2018-04-15] MEDS: Gabapentin 300 MG Capsule PO ×3 (07:59→16:59)
[2018-04-15] MEDS: Escitalopram Oxalate 10 MG Tablet PO (07:59)
--- NOTE | 2018-04-15 10:52 | PCM.PN.NEU ---
Subjective: Patient seen and examined. Tolerating therapy. Still in denied about going to the SNF, states he can go home without any difficultly. Overall his gait has improved since admission, will continue to work with him until his discharge on Saturday. - Physical Exam General: Alert, Oriented x3, Cooperative HEENT: Atraumatic, PERRLA, EOMI, Normocephalic Neck: Supple, No JVD, Negative Carotid Bruits Lungs: Clear to auscultation, Normal air movement Cardiovascular: Regular rate, No murmurs Abdomen: Bowel Sounds Present, Soft, Non Tender Extremities: No edema, Capillary Refill Less than 3 Seconds Skin: No rashes, No breakdown Musculoskeletal: No Tenderness to Palpation of Joints or Extremities Neurological: Cranial nerves II-XII grossly intact Psych/Mental Status: Normal Affect, Appropriate, Alert and oriented to time, place, person, mood and affect Vital Signs Temp Pulse Resp BP Pulse Ox 97.7 F L 90 18 127/84 H 98 04/15/18 07:43 04/15/18 07:43 04/15/18 07:43 04/15/18 07:43 04/15/18 07:43 Oxygen Delivery Method Room Air Weight: 73.8 kg Body Mass Index (BMI) 21.2 Intake and Output for Last 24 Hours 04/13/18 04/14/18 04/15/18 23:59 23:59 23:59 Intake Total 440 / 440 960 / 960 240 / 240 Balance 440 / 440 960 / 960 240 / 240 Active Medications Acetaminophen (Tylenol) 650 mg PO Q6H PRN PRN PRN Reason: mild to mod pain/fever Last Admin: 04/04/18 20:58 Dose: 650 mg Amantadine HCl (Symmetrel) 100 mg PO TID [facility] Last Admin: 04/15/18 05:10 Dose: 100 mg Baclofen (Lioresal) 10 mg PO 4X/DAYCM [facility] Last Admin: 04/15/18 07:59 Dose: 10 mg Bisacodyl (Dulcolax) 10 mg RECTAL .PRN X 1 PRN PRN Reason: Constipation Enoxaparin Sodium (Lovenox) 40 mg SC DAILY@0600 [facility] Last Admin: 04/15/18 05:09 Dose: 40 mg Escitalopram Oxalate (Lexapro) 10 mg PO DAILY [facility] Last Admin: 04/15/18 07:59 Dose: 10 mg Famotidine (Pepcid) 20 mg PO BID [facility] Last Admin: 04/15/18 07:58 Dose: 20 mg Gabapentin (Neurontin) 300 mg PO TIDCM [facility] Last Admin: 04/15/18 07:59 Dose: 300 mg Hydroxyzine Pamoate (Vistaril Pamoate Capsule) 50 mg PO DAILY@2200 [facility] Last Admin: 04/14/18 21:53 Dose: 50 mg Ibuprofen (Motrin) 600 mg PO Q6H PRN PRN PRN Reason: SEVERE PAIN (6-10) Lorazepam (Ativan) 0.5 mg PO QHS PRN PRN PRN Reason: Insomnia Last Admin: 04/14/18 21:29 Dose: 0.5 mg Magnesium Hydroxide (Milk Of Magnesia) 30 ml PO .PRN X 1 PRN PRN Reason: Constipation Nicotine (Nicoderm Cq (Pbkc)) 14 mg TRANSDERM. DAILY [facility] Last Admin: 04/15/18 07:59 Dose: 14 mg Nutritional Formula (Lactose Free) (Ensure Enlive) 120 ml PO 4X/DAY [facility] Last Admin: 04/15/18 07:59 Dose: 120 ml Senna/Docusate Sodium (Senokot-S, Fani-Colace) 2 tablet PO BID [facility] Last Admin: 04/15/18 07:58 Dose: Not Given Medical Necessity - Tobacco Use Smoking Status: Current every day smoker Tobacco Use: Cigarettes Assessment/Plan Debility 2/2 [place] Chorea disease. Goal of rehab is yazidi of prior level of functional independence. Plan: - Physical therapy for gait and balance - Occupational Therapy for ADLs - Speech therapy - As needed analgesics - Bowel protocol - DVT prophylaxis: Calixto hoses, SCDs, and Lovenox - Fall Precautions - Plan is placement in [facility] at discharge - Denali's chorea - continue home medication regimen. Recommend tetrabenazine for movement disorder. [facility] pharmacy does not carry inpatient but will attempt to order in. - Depression-continue home Lexapro regimen. - Tobacco Dependence - nicotine replacement patch. discussed cessation benefits. - Plan is discharge on Saturday to SNF
--- NOTE | 2018-04-15 10:56 | PN.NEURO_ITS ---
Subjective: Patient seen and examined. Tolerating therapy. Still in denied about going to the SNF, states he can go home without any difficultly. Overall his gait has improved since admission, will continue to work with him until his discharge on Saturday. - Physical Exam General: Alert, Oriented x3, Cooperative HEENT: Atraumatic, PERRLA, EOMI, Normocephalic Neck: Supple, No JVD, Negative Carotid Bruits Lungs: Clear to auscultation, Normal air movement Cardiovascular: Regular rate, No murmurs Abdomen: Bowel Sounds Present, Soft, Non Tender Extremities: No edema, Capillary Refill Less than 3 Seconds Skin: No rashes, No breakdown Musculoskeletal: No Tenderness to Palpation of Joints or Extremities Neurological: Cranial nerves II-XII grossly intact Psych/Mental Status: Normal Affect, Appropriate, Alert and oriented to time, place, person, mood and affect Vital Signs Temp Pulse Resp BP Pulse Ox 97.7 F L 90 18 127/84 H 98 04/15/18 07:43 04/15/18 07:43 04/15/18 07:43 04/15/18 07:43 04/15/18 07:43 Oxygen Delivery Method Room Air Weight: 73.8 kg Body Mass Index (BMI) 21.2 Intake and Output for Last 24 Hours 04/13/18 04/14/18 04/15/18 23:59 23:59 23:59 Intake Total 440 / 440 960 / 960 240 / 240 Balance 440 / 440 960 / 960 240 / 240 Active Medications Acetaminophen (Tylenol) 650 mg PO Q6H PRN PRN PRN Reason: mild to mod pain/fever Last Admin: 04/04/18 20:58 Dose: 650 mg Amantadine HCl (Symmetrel) 100 mg PO TID [facility] Last Admin: 04/15/18 05:10 Dose: 100 mg Baclofen (Lioresal) 10 mg PO 4X/DAYCM [facility] Last Admin: 04/15/18 07:59 Dose: 10 mg Bisacodyl (Dulcolax) 10 mg RECTAL .PRN X 1 PRN PRN Reason: Constipation Enoxaparin Sodium (Lovenox) 40 mg SC DAILY@0600 [facility] Last Admin: 04/15/18 05:09 Dose: 40 mg Escitalopram Oxalate (Lexapro) 10 mg PO DAILY [facility] Last Admin: 04/15/18 07:59 Dose: 10 mg Famotidine (Pepcid) 20 mg PO BID [facility] Last Admin: 04/15/18 07:58 Dose: 20 mg Gabapentin (Neurontin) 300 mg PO TIDCM [facility] Last Admin: 04/15/18 07:59 Dose: 300 mg Hydroxyzine Pamoate (Vistaril Pamoate Capsule) 50 mg PO DAILY@2200 [facility] Last Admin: 04/14/18 21:53 Dose: 50 mg Ibuprofen (Motrin) 600 mg PO Q6H PRN PRN PRN Reason: SEVERE PAIN (6-10) Lorazepam (Ativan) 0.5 mg PO QHS PRN PRN PRN Reason: Insomnia Last Admin: 04/14/18 21:29 Dose: 0.5 mg Magnesium Hydroxide (Milk Of Magnesia) 30 ml PO .PRN X 1 PRN PRN Reason: Constipation Nicotine (Nicoderm Cq (Pbkc)) 14 mg TRANSDERM. DAILY [facility] Last Admin: 04/15/18 07:59 Dose: 14 mg Nutritional Formula (Lactose Free) (Ensure Enlive) 120 ml PO 4X/DAY [facility] Last Admin: 04/15/18 07:59 Dose: 120 ml Senna/Docusate Sodium (Senokot-S, Fani-Colace) 2 tablet PO BID [facility] Last Admin: 04/15/18 07:58 Dose: Not Given Medical Necessity - Tobacco Use Smoking Status: Current every day smoker Tobacco Use: Cigarettes Assessment/Plan Debility 2/2 [place] Chorea disease. Goal of rehab is episcopal of prior level of functional independence. Plan: - Physical therapy for gait and balance - Occupational Therapy for ADLs - Speech therapy - As needed analgesics - Bowel protocol - DVT prophylaxis: Calixto hoses, SCDs, and Lovenox - Fall Precautions - Plan is placement in [facility] at discharge - [place]'s chorea - continue home medication regimen. Recommend tetrabenazine for movement disorder. [facility] pharmacy does not carry inpatient but will attempt to order in. - Depression-continue home Lexapro regimen. - Tobacco Dependence - nicotine replacement patch. discussed cessation benefits. - Plan is discharge on Saturday to SNF
[2018-04-15 20:34] VITALS: BP 147/75; PULSE 89; RESP 18; TEMP 36.6; O2SAT 94
[2018-04-15] MEDS: hydrOXYzine PAM 25 MG Capsule 50 MG PO (20:39)
[2018-04-15] MEDS: LORazepam 0.5 MG Tablet PO (21:32)
[2018-04-15 22:00] VITALS: PULSE 89; RESP 18; O2SAT 94
--- NOTE | 2018-04-16 02:15 | NURSING ---
Reviewed and agree with METER CHANGES RECORDS CLERK documentation and FIMS charting
[2018-04-16] MEDS: Amantadine 100 MG Capsule PO ×3 (05:39→21:44)
[2018-04-16] MEDS: Enoxaparin 40 MG/0.4 ML Syringe SC (05:39)
[2018-04-16] MEDS: Gabapentin 300 MG Capsule PO ×3 (09:00→17:38)
[2018-04-16] MEDS: Escitalopram Oxalate 10 MG Tablet PO (09:00)
[2018-04-16] MEDS: Baclofen 10 MG Tablet PO ×4 (09:00→21:44)
[2018-04-16] MEDS: Senna/Docusate Sodium 1 Tablet 2 TABLET PO (09:01)
[2018-04-16] MEDS: Famotidine 20 MG Tablet PO ×2 (09:01→21:44)
[2018-04-16 10:00] VITALS: BP 125/88; PULSE 65; RESP 16; TEMP 36.3; O2SAT 95
[2018-04-16] MEDS: hydrOXYzine PAM 25 MG Capsule 50 MG PO (21:44)
[2018-04-16] MEDS: LORazepam 0.5 MG Tablet PO (21:47)
[2018-04-16 22:00] VITALS: BP 128/75; PULSE 69; RESP 16; TEMP 36.6; O2SAT 93
--- NOTE | 2018-04-17 01:53 | NURSING ---
Reviewed and agree with HEALTH AND FITNESS PROFESSOR documentation and FIMS charting.
[2018-04-17] MEDS: Enoxaparin 40 MG/0.4 ML Syringe SC (05:48)
[2018-04-17] MEDS: Amantadine 100 MG Capsule PO ×3 (05:49→21:25)
[2018-04-17 07:41] VITALS: BP 139/90; PULSE 83; RESP 18; TEMP 36.8; O2SAT 94
[2018-04-17] MEDS: Escitalopram Oxalate 10 MG Tablet PO (08:16)
[2018-04-17] MEDS: Famotidine 20 MG Tablet PO ×2 (08:16→21:25)
[2018-04-17] MEDS: Gabapentin 300 MG Capsule PO ×3 (08:16→17:58)
[2018-04-17] MEDS: Baclofen 10 MG Tablet PO ×4 (08:16→21:25)
--- NOTE | 2018-04-17 11:31 | CASEMGMT ---
Team meeting held. Patient present as well as patient family. Patient to discharge on 04/19/18 to [facility] Patient and patient family agreeable to plan. Patient also has an application for [employer] and requesting for this community mental health social worker to assist with this. This community mental health social worker to follow up with patient later on this day. Support given. [facility] This community mental health social worker making referral for skilled. Selene reporting to have an opening and to be able to review clinicals. Selene to contact this community mental health social worker back to let this socia worker know if [facility] will be able to accept. Transfer form initiated. Proposed discharge date: 04/19/18 PLAN: Discharge to [facility] ro[facility]. Mini GONZALEZ, TORSTEN
--- NOTE | 2018-04-17 13:59 | PN_ITS ---
Subjective: She was seen and examined. Fast asleep. No acute events according to nurses. Will be discharged on 04/19/2018 Vitals reviewed, stable. Objective: Physical exam: General: Alert, Oriented x3, Cooperative, No apparent distress, chorea present HEENT: Atraumatic, PERRLA, EOMI, Normocephalic Oral: Moist Mucosa Neck: Supple Lungs: Clear to auscultation, Normal air movement Cardiovascular: Regular rate, Regular Rhythm, Normal S1, Normal S2, No murmurs Abdomen: Bowel Sounds Present, Soft, Non Tender, Non-Distended, No Hepato- splenomegaly Extremities: No edema Skin: No rashes, No breakdown Musculoskeletal: No Tenderness to Palpation of Joints or Extremities Lymphatic: No Cervical, Supraclavicular, or Inguinal Adenopathy Neurological: Cranial nerves II-XII grossly intact, chorea present Psych/Mental Status: Normal Affect, Appropriate Vitals/I&O's: Vital Signs Temp Pulse Resp BP Pulse Ox 98.2 F 83 18 139/90 H 94 04/17/18 07:41 04/17/18 07:41 04/17/18 07:41 04/17/18 07:41 04/17/18 07:41 Oxygen Delivery Method Room Air Weight: 72.8 kg Body Mass Index (BMI) 21.2 Intake and Output for Last 24 Hours 04/15/18 04/16/18 04/17/18 23:59 23:59 23:59 Intake Total 480 / 480 720 / 720 320 / 320 Balance 480 / 480 720 / 720 320 / 320 Current Medications Acetaminophen (Tylenol) 650 mg PO Q6H PRN PRN PRN Reason: mild to mod pain/fever Last Admin: 04/04/18 20:58 Dose: 650 mg Amantadine HCl (Symmetrel) 100 mg PO TID [facility] Last Admin: 04/17/18 05:49 Dose: 100 mg Baclofen (Lioresal) 10 mg PO 4X/DAYCM [facility] Last Admin: 04/17/18 12:40 Dose: 10 mg Bisacodyl (Dulcolax) 10 mg RECTAL .PRN X 1 PRN PRN Reason: Constipation Enoxaparin Sodium (Lovenox) 40 mg SC DAILY@0600 [facility] Last Admin: 04/17/18 05:48 Dose: 40 mg Escitalopram Oxalate (Lexapro) 10 mg PO DAILY [facility] Last Admin: 04/17/18 08:16 Dose: 10 mg Famotidine (Pepcid) 20 mg PO BID [facility] Last Admin: 04/17/18 08:16 Dose: 20 mg Gabapentin (Neurontin) 300 mg PO TIDCM [facility] Last Admin: 04/17/18 12:40 Dose: 300 mg Hydroxyzine Pamoate (Vistaril Pamoate Capsule) 50 mg PO DAILY@2200 [facility] Last Admin: 04/16/18 21:44 Dose: 50 mg Ibuprofen (Motrin) 600 mg PO Q6H PRN PRN PRN Reason: SEVERE PAIN (6-07/23) Lorazepam (Ativan) 0.5 mg PO QHS PRN PRN PRN Reason: Insomnia Last Admin: 04/16/18 21:47 Dose: 0.5 mg Magnesium Hydroxide (Milk Of Magnesia) 30 ml PO .PRN X 1 PRN PRN Reason: Constipation Nicotine (Nicoderm Cq (Pbkc)) 14 mg TRANSDERM. DAILY [facility] Last Admin: 04/17/18 08:16 Dose: 14 mg Nutritional Formula (Lactose Free) (Ensure Enlive) 120 ml PO 4X/DAY [facility] Last Admin: 04/17/18 08:35 Dose: Not Given Senna/Docusate Sodium (Senokot-S, Fani-Colace) 2 tablet PO BID [facility] Last Admin: 04/17/18 08:35 Dose: Not Given Medical Necessity - Tobacco Use Smoking Status: Current every day smoker Tobacco Use: Cigarettes Assessment/Plan 37-year-old male admitted on 04/03/2018 due to debility, frequent falls at home secondary to [place]'s chorea disease. 1. Physical debility secondary to [place]'s chorea, on therapy, on amantadine , baclofen and baclofen, discharge planned for 04/19/18. 2. Depression, on Lexapro. 3. Tobacco Dependence, on nicotine replacement patch. 4. DVT prophylaxis- Lovenox SC Code Visit Inpatient E&M: 63564 Subs Hosp L2
--- NOTE | 2018-04-17 14:04 | PN.NEURO_ITS ---
Subjective: Staffed in team meeting. Family at bedside. Questions answered. With Physical therapy, He is stand by assist for standing, and pivoting. He is able to walk 350 feet at standby assist with out an assistive device. He is able to walk up and down 10 steps using one or two hand rails at stand by assist. Walked in the community at standby assist, did not have any issues with balance or difficultly with transitioning from different surfaces. With Occupational therapy, He was able to take a shower without the assistance of the therapist, at supervision level. He is able to do all his own personal care. With Speech therapy, he is tolerating a soft texture diet with thin liquids this was advanced from a mechanical soft diet with thin liquids. Will continue to work on controlling his breathing, his rate of speech, will do a cognitive evaluation later today. With Nursing there are no issues. The ad terminal makeup operator plan remains the same discharge on 04/19 to [facility]. - Physical Exam General: Alert, Oriented x3, Cooperative HEENT: Atraumatic, PERRLA, EOMI, Normocephalic Neck: Supple, No JVD, Negative Carotid Bruits Lungs: Clear to auscultation, Normal air movement Cardiovascular: Regular rate, No murmurs Abdomen: Bowel Sounds Present, Soft, Non Tender Extremities: No edema, Capillary Refill Less than 3 Seconds Skin: No rashes, No breakdown Musculoskeletal: No Tenderness to Palpation of Joints or Extremities Neurological: Cranial nerves II-XII grossly intact Psych/Mental Status: Normal Affect, Appropriate, Alert and oriented to time, place, person, mood and affect Vital Signs Temp Pulse Resp BP Pulse Ox 98.2 F 83 18 139/90 H 94 04/17/18 07:41 04/17/18 07:41 04/17/18 07:41 04/17/18 07:41 04/17/18 07:41 Oxygen Delivery Method Room Air Weight: 72.8 kg Body Mass Index (BMI) 21.2 Intake and Output for Last 24 Hours 04/15/18 04/16/18 04/17/18 23:59 23:59 23:59 Intake Total 480 / 480 720 / 720 320 / 320 Balance 480 / 480 720 / 720 320 / 320 Active Medications Acetaminophen (Tylenol) 650 mg PO Q6H PRN PRN PRN Reason: mild to mod pain/fever Last Admin: 04/04/18 20:58 Dose: 650 mg Amantadine HCl (Symmetrel) 100 mg PO TID [facility] Last Admin: 04/17/18 05:49 Dose: 100 mg Baclofen (Lioresal) 10 mg PO 4X/DAYCM [facility] Last Admin: 04/17/18 12:40 Dose: 10 mg Bisacodyl (Dulcolax) 10 mg RECTAL .PRN X 1 PRN PRN Reason: Constipation Enoxaparin Sodium (Lovenox) 40 mg SC DAILY@0600 [facility] Last Admin: 04/17/18 05:48 Dose: 40 mg Escitalopram Oxalate (Lexapro) 10 mg PO DAILY [facility] Last Admin: 04/17/18 08:16 Dose: 10 mg Famotidine (Pepcid) 20 mg PO BID [facility] Last Admin: 04/17/18 08:16 Dose: 20 mg Gabapentin (Neurontin) 300 mg PO TIDCM [facility] Last Admin: 04/17/18 12:40 Dose: 300 mg Hydroxyzine Pamoate (Vistaril Pamoate Capsule) 50 mg PO DAILY@2200 [facility] Last Admin: 04/16/18 21:44 Dose: 50 mg Ibuprofen (Motrin) 600 mg PO Q6H PRN PRN PRN Reason: SEVERE PAIN (6-10/10) Lorazepam (Ativan) 0.5 mg PO QHS PRN PRN PRN Reason: Insomnia Last Admin: 04/16/18 21:47 Dose: 0.5 mg Magnesium Hydroxide (Milk Of Magnesia) 30 ml PO .PRN X 1 PRN PRN Reason: Constipation Nicotine (Nicoderm Cq (Pbkc)) 14 mg TRANSDERM. 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 Goal of rehab is holiness of prior level of functional independence. Plan: - Physical therapy for gait and balance - Occupational Therapy for ADLs - Speech therapy - As needed analgesics - Bowel protocol - DVT prophylaxis: Calixto hoses, SCDs, and Lovenox - Fall Precautions - Plan is placement in [facility] at discharge - [place]'s chorea - continue home medication regimen. Recommend tetrabenazine for movement disorder. [facility] pharmacy does not carry inpatient but will attempt to order in. - Depression-continue home Lexapro regimen. - Tobacco Dependence - nicotine replacement patch. discussed cessation benefits. - Plan is discharge on Saturday to SNF
--- NOTE | 2018-04-17 15:10 | CASEMGMT ---
Social Work Telephone call from [facility] ([facility])Selene. Patient is approved to transition on 04/19/18. Proposed discharge date: 04/19/18 PLAN: Discharge to [facility] skilled. Mini GONZALEZ, OBSTETRICS NURSE PRACTITIONER
[2018-04-17] MEDS: hydrOXYzine PAM 25 MG Capsule 50 MG PO (21:25)
[2018-04-17 21:45] VITALS: BP 137/74; PULSE 84; RESP 18; TEMP 36.9; O2SAT 94
--- NOTE | 2018-04-18 03:08 | NURSING ---
REVIEWED AND AGREE WITH CHEMICAL TREATMENT PLANT TECHNICIAN'S FIM AND HANDOFF CHARTING.
[2018-04-18] MEDS: Enoxaparin 40 MG/0.4 ML Syringe SC (05:46)
[2018-04-18] MEDS: Amantadine 100 MG Capsule PO ×3 (05:46→19:43)
[2018-04-18 07:22] VITALS: BP 115/70; PULSE 60; RESP 16; TEMP 36.7; O2SAT 94
[2018-04-18] MEDS: Gabapentin 300 MG Capsule PO ×3 (07:54→17:31)
[2018-04-18] MEDS: Baclofen 10 MG Tablet PO ×4 (07:54→19:43)
[2018-04-18] MEDS: Escitalopram Oxalate 10 MG Tablet PO (07:54)
[2018-04-18] MEDS: Famotidine 20 MG Tablet PO ×2 (07:55→19:44)
--- NOTE | 2018-04-18 10:47 | PCM.TXEXTCAR ---
- Diet 04/03/18 18:35 Diet: Regular Diet Food consistency:: Mechanical Soft/Ground Liquid Consistency:: Regular/Thin Dietary Modifications:: Mechanical Soft Diet Diet Comments: built up silverware - Wound(s) right heel Wound Type: crack right inner forearm Wound Type: Abrasion left knee Wound Type: Abrasion left trivedi Wound Type: Abrasion left inner and outer ankle, top of left foot Wound Type: Abrasion - Therapies Weight Bearing: Full weight bearing Physical Therapy: Eval and Treat Occupational Therapy: Eval and Treat Speech Therapy: Eval and Treat - Allergies/Procedures Done in Hospital Allergies/Adverse Reactions: Allergies No Known Allergies Allergy (Verified 04/03/18 14:17) - Type of Care/Length of Stay Estimated LOS: More Than 30 Days Type of Care Needed: Skilled Rehab Potential: Good Prognosis: Good - Additional Orders/Day of Discharge Day of Discharge: 04/19/18 - Dietary and Speech Recommendations Dietitian Recommendations/Changes: Continue Regular diet/ONS regimen as ordered with texture/consistency as per speech. Current wt as able. - Follow Up Care Primary Care Physician: Care Physician,No Primary [Primary Care Provider] - Please Follow Up With: Jose Hull
--- NOTE | 2018-04-18 10:53 | DCINST_ITS ---
- Discharge Diagnoses Reason(s) for Visit for Discharge Instructions: [place] Disease You will use the following diet at home:: Regular Your food should be the consistency of: Mechanical soft (ground) Your liquids should be the consistency of: Regular/Thin Discharge Activity: May Not Drive, May Shower, May Take a Tub Bath Weight Bearing Status: Full weight bearing Call your doctor if you observe: Fever of 101 or Higher, Coldness, Increased Pain, Numbness or Tingling, Change in Color, Inability to urinate, Inability to have a bowel movement, Using more than one pad per hour, Shortness of breath, Dizziness, Fainting spells, Swelling in the ankles, Chest pain, Prolonged hiccoughing, Increased palpitations (irregular heartbeat), Calf discomfort, Uncontrolled pain Allergies/Adverse Reactions: Allergies No Known Allergies Allergy (Verified 04/03/18 14:17) Medications to take at Discharge Amantadine [Symmetrel] 100 mg PO TID 02/28/14 Baclofen [Lioresal] 10 mg PO 4X/DAY 02/28/14 Hydroxyzine HCl 50 mg PO DAILY 04/03/18 Acetaminophen [Tylenol Tablet] 650 mg PO Q6H PRN PRN tablet 04/18/18 Ensure Enlive 120 ml PO 4X/DAY liquid 04/18/18 Escitalopram Oxalate [Lexapro] 10 mg PO DAILY tablet 04/18/18 Famotidine [Pepcid] 20 mg PO BID tablet 04/18/18 Gabapentin [Neurontin] 300 mg PO TIDCM capsule 04/18/18 Nicotine [Nicoderm] 14 mg TRANSDERM. DAILY patch 04/18/18 Primary Care Physician: Care Physician,No Primary [Primary Care Provider] - Test Results: Test results from this visit will be discussed in further detail at your follow- up appointment, if applicable. Please Follow Up With: Jose Hull Proposed Discharge Date: 04/19/18
--- NOTE | 2018-04-18 11:00 | DS.PCM_ITS ---
Rehab Discharge Summary DATE OF ADMISSION: 04/03/18 DATE OF DISCHARGE: 04/19/18 - Rehab Diagnosis [place] Disease Discharge Diet: Soft diet Discharge Activity: May Not Drive, May Shower, May Take a Tub Bath Weight Bearing Status: Full weight bearing Call your doctor if you observe: Fever of 101 or Higher, Coldness, Increased Pain, Numbness or Tingling, Change in Color, Inability to urinate, Inability to have a bowel movement, Using more than one pad per hour, Shortness of breath, Dizziness, Fainting spells, Swelling in the ankles, Chest pain, Prolonged hiccoughing, Increased palpitations (irregular heartbeat), Calf discomfort, Uncontrolled pain Home Medications: Medications to take at Discharge Amantadine [Symmetrel] 100 mg PO TID 02/28/14 Baclofen [Lioresal] 10 mg PO 4X/DAY 02/28/14 Hydroxyzine HCl 50 mg PO DAILY 04/03/18 Acetaminophen [Tylenol Tablet] 650 mg PO Q6H PRN PRN tablet 04/18/18 Ensure Enlive 120 ml PO 4X/DAY liquid 04/18/18 Escitalopram Oxalate [Lexapro] 10 mg PO DAILY tablet 04/18/18 Famotidine [Pepcid] 20 mg PO BID tablet 04/18/18 Gabapentin [Neurontin] 300 mg PO TIDCM capsule 04/18/18 Nicotine [Nicoderm] 14 mg TRANSDERM. 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 He is constantly falling, per the family. He lives with his grandmother who is 93. She feels she can no longer care of him in the home because of the falls and his inability to care for himself. He recently was attempting to open a can of cat food and cut him self on the can when his hand started jerking, he has choreiform movements throughout, he did not require any sutures and the cut is not very deep. He also dropped a crock pot on his foot, it is red and slightly swollen but not broken. The patient has not been ill in any way he denies any fevers, chills, cough, or chest pains. His Neurologist is Dr. Everett Hull in [place]. He and his grandmother live in a two story home with 4 steps to get into the house and hard caldwell floor through out the house. He is unable to care for him self at home, per the family. He does not drive. He will probably need placement in a [facility] facility at discharge. With Physical therapy, He is stand by assist for standing, and pivoting. He is able to walk 350 feet at standby assist with out an assistive device. He is able to walk up and down 10 steps using one or two hand rails at stand by assist. Walked in the community at standby assist, did not have any issues with balance or difficultly with transitioning from different surfaces. With Occupational therapy, He was able to take a shower without the assistance of the therapist, at supervision level. He is able to do all his own personal care. With Speech therapy, he is tolerating a soft texture diet with thin liquids this was advanced from a mechanical soft diet with thin liquids. Will continue to work on controlling his breathing, his rate of speech, will do a cognitive evaluation later today. With Nursing there are no issues. We attempted to start the patient on Tetrabenazine but could not get it from the [facility] pharmacy, the Patient sees Dr. Monet as outpatient for Neurology, will defer to him we also recommend that he also have an outpatient movement d/o referral for HD, Meaningful Use Info Meaningful Use Diagnoses (Choose all that apply): None applicable
--- NOTE | 2018-04-18 14:00 | NURSING ---
This nurse called and left message yesterday and today for movement disorder doctor office to call back for referral and no call back. Appt made with neurologist dr noel castro and abdullahi and patient aware.
--- NOTE | 2018-04-18 15:16 | PN_ITS ---
Subjective: Patient seen and examined. Denies current complaints. Plan for discharge tomorrow to SNF. - Physical Exam General: Alert, Oriented x3, Cooperative HEENT: Atraumatic, PERRLA, EOMI, Normocephalic Neck: Supple, No JVD, Negative Carotid Bruits Lungs: Clear to auscultation, Normal air movement Cardiovascular: Regular rate, Regular Rhythm, Normal S1, Normal S2, No murmurs Abdomen: Bowel Sounds Present, Soft, Non Tender, Non-Distended Extremities: No clubbing, No cyanosis, No edema, Capillary Refill Less than 3 Seconds Skin: No rashes, No breakdown Musculoskeletal: No Tenderness to Palpation of Joints or Extremities Neurological: Cranial nerves II-XII grossly intact, Neuro grossly intact Psych/Mental Status: Normal Affect, Appropriate Vital Signs Temp Pulse Resp BP Pulse Ox 98.0 F 60 16 115/70 94 04/18/18 07:22 04/18/18 07:22 04/18/18 07:22 04/18/18 07:22 04/18/18 07:22 Oxygen Delivery Method Room Air Weight: 72.8 kg Body Mass Index (BMI) 21.2 Intake and Output for Last 24 Hours 04/16/18 04/17/18 04/18/18 23:59 23:59 23:59 Intake Total 720 / 720 320 / 320 440 / 440 Balance 720 / 720 320 / 320 440 / 440 Medical Necessity - Tobacco Use Smoking Status: Current every day smoker Tobacco Use: Cigarettes Assessment/Plan Patient is a 37-year-old male admitted 04/03/2018 due to debility, frequent falls at home secondary to [place]'s chorea disease. He has a significant family history of [place]'s chorea. He currently lives with grandmother with his 93 years old. He follows with a neurologist, Dr. Jose Hull in [place]. 1. Physical debility secondary to [place]'s chorea-continue home medication regimen. PT/OT/ST. SNF at discharge, discharge planned for tomorrow. 2. Depression-continue home Lexapro regimen. 3. Tobacco Dependence- nicotine replacement patch. Recommend cessation. DVT prophylaxis- Lovenox SC This patient was seen by KARLA Hilton under the supervision of Dr. Vergara.
--- NOTE | 2018-04-18 16:01 | CHAPLAIN ---
Type of Pastoral Visit ___ Initial Visit _x__ Follow-up Visit ___ On-call Visit ___ General Patient Visit ___ Spiritual Assessment ___ Family Conference ___ Bereavement ___ Rapid Response ___ Code Blue ___ Other (describe below) Pastoral Care Referral From _x__ Patient ___ Family ___ Nurse ___ Physician ___ Glass Designer ___ Butter Maker ___ Other (describe below) Sacrament/Intervention _x__ Active listening ___ Anointing ___ Yarsanism ___ Bereavement ___ Communion ___ Nina exploration ___ ___ Life review ___ Prayer ___ Reconciliation ___ Sacrament of Sick _x__ Supportive presence ___ Wedding ___ Other (describe below) Pastoral Comments brief greeting to patient who will be discharged tomorrow; wish of wellness and support;
--- NOTE | 2018-04-18 16:23 | CASEMGMT ---
Social Work Spoke with patient and patient family, requesting for transportation to be set up for patient via wheelchair van. Telephone call to Martin/Rashel. Transportation set up for 04/19/18 @ 2:00pm. Transportation form completed and placed with patient discharge information. Collaborating with resident in room on discharge plan. Patient mcc goals is to transition to [facility] living. This social media community manager attempting to complete application with patient. Patient declining for this social media community manager to assist with completing the application. Patient aware that transportation has been set for for 2:00pm on 04/19/18 for patient to transition to [facility] Patient cousinTorri update and aware/agreeable to discharge plan. No further needs identified at this time. Support given. PASSR completed in [facility]. Results faxed to [facility] along with discharge information and time of patient discharge. Proposed discharge date: 04/19/18 PLAN: [facility]charge to [facility] skilled Mini GONZALEZ, PEDIATRIC PSYCHOLOGIST
--- NOTE | 2018-04-18 17:00 | NURSING ---
Patient confused and reported his grandmother was taking him home tonight and reoriented to discharge tomorrow to snf. Patient redirected to dinner table to eat with other patients and compliant.
[2018-04-18 19:30] VITALS: BP 136/74; PULSE 94; RESP 18; TEMP 36.6; O2SAT 96
[2018-04-18] MEDS: hydrOXYzine PAM 25 MG Capsule 50 MG PO (19:44)
[2018-04-18] MEDS: LORazepam 0.5 MG Tablet PO (21:37)
--- NOTE | 2018-04-19 05:18 | NURSING ---
Reviewed and agree with LPNs fims and handoff
[2018-04-19] MEDS: Amantadine 100 MG Capsule PO (05:56)
[2018-04-19] MEDS: Enoxaparin 40 MG/0.4 ML Syringe SC (05:56)
[2018-04-19 08:18] VITALS: BP 113/71; PULSE 62; RESP 18; TEMP 36.8; O2SAT 96
[2018-04-19] MEDS: Senna/Docusate Sodium 1 Tablet 2 TABLET PO (08:32)
[2018-04-19] MEDS: Baclofen 10 MG Tablet PO ×2 (08:32→11:24)
[2018-04-19] MEDS: Escitalopram Oxalate 10 MG Tablet PO (08:32)
[2018-04-19] MEDS: Gabapentin 300 MG Capsule PO ×2 (08:32→11:24)
[2018-04-19] MEDS: Famotidine 20 MG Tablet PO (08:32)
--- NOTE | 2018-04-19 11:34 | CASEMGMT ---
Social Work Note Updated by Housing Flight Dispatcher that pt is not agreeable to placement at [facility] now. Face to face with pt to discuss discharge plan. Pt states that he has gotten better, which was the purpose of RU, and now he is going home. Inquire if he has spoke with his grandmother and aunt, and he states no. Inform that they are telling staff that they will not let him in. Pt states that he is still going to go. Recommend that he talk to them first. Pt calls. Staff talking to aunt on the phone and states that the aunt is saying she is taking the grandmother out to lunch to avoid the pt. Inform the pt that family is still stating they are not accepting the pt at home. Inform that SW will contact PD. Spoke with Nellie BRYANT and they state that the pt is a resident and the family does not have a right to tell him he cannot enter, however if they lock him out and he does not have a godoy they cannot necessarily force entry. Inquire if he returns home and they will not let him in if he can call them and they state yes. Updated RN on RU. Sarah Beebe, MULTI SKILLED OPERATOR, GRADE SCHOOL TEACHER
--- NOTE | 2018-04-19 12:26 | NURSING ---
Patient left AMA. Family/Aunt was called and she would not talk to patient but stated she was locking the doors and that he was not welcome to come home to the grandprs house. tar worker was called, and come up to talk to patient. She called the police to ensure that there was nothing they could do to assist the patient. The patient was informed of all this and she was still not agreeing to stay, he signed the AMA paper work and left the hospital. Nurse offered to call a cab to take him home, patient refused. Dr. Martin was notified.
== END 2018-04-19 11:46 | disposition left against medical advice (07) | DRG 948 ==
PROVIDERS: Admitting Provider Psychiatry & Neurology Neurology; Visit Provider Internal Medicine
DX: R53.81 Other malaise (principal); G10 Huntington's disease; F32.9 Major depressive disorder, single episode, unspecified; F17.210 Nicotine dependence, cigarettes, uncomplicated; Z79.899 Other long term (current) drug therapy
CPT/HCPCS: 36415; 80053; 85027; 92507; 92523; 92526; 97110; 97112; 97116; 97162; 97164; 97166; 97530; 97535; 97802; 99406

== ENCOUNTER 2018-09-01 16:51 | Inpatient (IN) | payer MEDICARE, MEDICAID, SELFPAY ==
[2018-09-01 16:53] VITALS: BP 147/97; PULSE 111; RESP 18; TEMP 37; O2SAT 95; BMI 21.7
[2018-09-01 17:04] VITALS: PULSE 108
--- NOTE | 2018-09-01 17:06 | ED.RN ---
TEXTILE MACHINERY SALES REPRESENTATIVE IS FAMILIAR WITH PT AND CURRENT SITUATION, UPDATE ON PT'S GRANDMOTHER DYING 2 WEEKS AGO. PT NOW LIVING ON OWN, FAMILY STOPS IN TO CHECK OMN HIM. AUNT IS TRYING TO OBTAIN GUARDIANSHIP TO PLACE PT IN LTCF.
--- NOTE | 2018-09-01 17:09 | ED.RN ---
PT HAS GENERALIZED SCATTERED SMALL WOUNDS OVER ENTIRE BODY IN VARIOUS STAGES OF HEALING. 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
--- NOTE | 2018-09-01 17:16 | CM.ED ---
Social Work Note Referral from nursing per family's request. Face to face with the pt and his aunt, Brianna. Per the pt his grandmother, who he resides with, on 08/17 of this year. Support provided. Brianna states that she found him on the ground this date. The pt confirms that he has been having more falls. Denies using any assistive devices. Brianna states that the pt has agreed to go to [facility]. Pt does confirm agreement with plan for [facility]. Discuss insurance approval and understanding expressed that this would not occur tonight. Step out of room and Brianna follow inquiring, He is going to be admitted tonight right? Because if not he is going home alone. Inform that this is not up to the hospital social worker, and this hospital social worker will discuss case with the physician. Physician into room. Placed call to [facility] oak[facility] who confirms that they are not able to accept the pt back and his needs require more long-term placement. Placed call to Saige at [facility] who confirms they have availability and to fax over clinicals in the morning for the DON to review. Pt will need to go for long-term placement on his Medicaid. Sarah Beebe, PATENT ENGINEER, OFFICE SUPPORT ASSOCIATE
--- NOTE | 2018-09-01 17:19 | CT_ITS ---
STUDY: CT BRAIN WITHOUT CONTRAST REASON FOR EXAM: Male, 37 years old. Fall. Left temporal hematoma. Headache. History of Ridgewood's disease. RADIATION DOSAGE (If Supplied By Facility): CTDIvol = ( 44.99 ) mGy, DLP = ( 796.11 ) mGycm TECHNIQUE: Transaxial CT imaging of the brain was performed without administration of intravenous contrast material. Individualized dose optimization techniques were used for this CT. COMPARISON: None. FINDINGS: There is a small soft tissue hematoma over the left frontal region. The soft tissues appear otherwise unremarkable. Normal calvarium. Normal size ventricles and extra-axial spaces for the patient's age. Normal white matter tracts of the cerebral hemispheres. Normal basal ganglia and thalami. Normal brainstem. Normal cerebellum. There is no intracranial hemorrhage. There are no findings of an acute ischemic infarction. Normal visualized paranasal sinuses. CT/Brain/Head without Contrast IMPRESSION: 1. Soft tissue hematoma over the left frontal region. There is no underlying calvarial abnormality. 2. No evidence of acute intracranial abnormality. Electronically Signed: Paramjit Mariano DO at 18:03 EST Tel [phone], Service support ,
--- NOTE | 2018-09-01 17:27 | ED.DCSUM_ITS ---
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 Patient reports falling face forward onto carpet today. He laid there a couple hours and was found by his aunt. He denies loss of consciousness. He does have a mild headache. Patient's aunt spoke to me outside the room. She states the patient does currently live alone. His significant other is currently filing paperwork for guardianship. They would like to see the patient in an extended care facility. Physical Examination: Blood pressure is 147/97, temperature 98.6, heart rate 108, respiratory rate 18, pulse ox 95% on room air. Patient is lying in bed. He is in no acute distress and answers questions appropriately. Head neck examination reveals a 3 cm diameter hematoma on the left forehead. He has dried blood noted on his lips. Teeth are stable and there is no tongue injury. Heart is tachycardic and regular. Lung sounds are clear. Abdomen is soft and nontender. Skin examination reveals multiple abrasions on his back and his extremities. 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 Test Results: CBC was a white count 11.5 with 87% neutrophils. Chemistry studies significant only for glucose of 73. His LFTs reveal an ALT of 83 and AST is 79. His CK levels 2406. CT the head shows soft tissue hematoma the left frontal region. No underlying calvarial abnormality noted. No acute intracranial abnormality. Emergency Department Course and Treatment: Patient was given IV fluids. He was seen by social work. I spoke with the patient about my concern with his ability to care for himself at home. He agrees that his grandmother recently that she had been the primary caregiver for him. He has been living alone now for the last 10-14 days. At this time I will speak with hospitalist regarding observation to see if we can get placement for the patient for his safety. Treatment Plan: [] Disposition: Admit Impression: 1. Fall with scalp hematoma 2. Letcher's disease This note was generated with Kiosked dictation software. It may contain incorrect words, spelling, and punctuation that were not noted in review of the chart prior to signing ED Disposition - Plan for ED Patient: Chief Complaint: Fall Referrals: Care Physician,No Primary [Primary Care Provider] -
--- NOTE | 2018-09-01 17:35 | CM.ED ---
Social Work Note Discussed with physician. Back into room and provided Brianna with CINTHIA's card and Saige's (admission coordinator at [facility]) number. Made aware that pt will need to medically require to be hospitalized. Brianna thanks CINTHIA, will continue to follow and assist as needed. Sarah Beebe, TORSTEN, EDISON
[2018-09-01] MEDS: 0.9% Normal Saline 1,000 ML 150 ML IV (17:37)
[2018-09-01 18:00] LABS: Absolute Lymphocyte Count 0.68 X10^3/ul (0.83-4.51); Absolute Neutrophil Count 10.1 X10^3/uL (2.0-7.7); Basophil# 0.02 X10^3/uL; Basophil% 0.2 % (0-1); Eosinophil# 0.01 X10^3/uL; Eosinophils% 0.1 % (0-5); Hemoglobin 15.6 g/dl (13.0-16.5); Lymphocyte # 0.68 X10^3/ul (4.0); Lymphocyte % 5.9 % (19-41); Mean Corp Hgb Conc 33.2 g/gl (32-36); Mean Corpuscular Hgb 30.6 pg (27.0-32.0); Mean Corpuscular Volume 92.2 fL (80-94); Mean Platelet Vol. 11.7 fl (6.2-12.0); Monocyte# 0.69 X10^3/uL; Neutrophil # 10.12 X10^3/uL (2.7-7.7); Neutrophil % 87.6 % (47-70); Platelet Count 224 K/mm3 (150-450); RBC Distribution Width CV 13.4 % (11.6-14.6); RBC Distribution Width SD 44.9 fl (35.1-43.9); White Blood Count 11.5 K/mm3 (4.4-11.0)
[2018-09-01 18:09] LABS: AST(SGOT) 79 U/L (15-37); Alanine Aminotransfer ALT/SGPT 83 U/L (16-61); Albumin, Serum 4.2 g/dL (3.2-5.0); Alkaline Phosphatase 88 U/L (45-117); Anion Gap 6 (5-15); BUN 14 mg/dL (7-18); BUN/Creat Ratio 14.7 RATIO (10-20); Bilirubin, Direct 0.24 mg/dL (0.00-0.30); Calcium,Total 8.7 mg/dL (8.5-10.1); Chloride 106 mmol/L (98-107); Creatinine, Serum 0.95 mg/dL (0.70-1.30); EST Glomerular Filtration Rate 93 mL/min (>60); Est Glom Filt Rate - Afr Amer 113 mL/min (>60); Estimated Creatinine Clearance 114.68 ml/min; Globulin 3.4 g/dL (2.2-4.2); Glucose 73 mg/dL (74-106); Protein, Total 7.6 g/dL (6.4-8.2); Sodium Level 142 mmol/L (136-145)
[2018-09-01 18:24] LABS: POSITIVE COUNT NO; POSITIVE DIFFERENTIAL NO; POSITIVE MORPHOLOGY NO
[2018-09-01 18:28] LABS: CPK Total, Creatine Kinase 2406 U/L (39-308)
[2018-09-01 19:20] VITALS: BMI 21.8
--- NOTE | 2018-09-01 19:25 | PCM.HP.STD ---
Problem List (1) Huntingtons chorea Status: Chronic (2) Fall Status: Acute (3) Dehydration Status: Acute History of Present Illness Date of Admission: 09/01/18 Chief Complaint: fall and dehydration secondary to hunginton't chorea The patient is a 37 year old male patient with a significant past medical history of Chelsea's Chorea presents to the ER from home after falling. He has a large contusion to his forehead but no intracranial hemorrhage by CT scan. It is reported that his caregiver two weeks ago and since that time he has been on his own. 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 Labs are significant for an elevated CK. He is normotensive but tachycardic. He states he has some rib pain as well which hurts worse with deep inspiration. He will be admitted to the hospital and case management will be consulted for DC planning to ECF. Past Medical History Past Medical History (Chronic Problems): Chronic Problems Huntingtons chorea (Chronic) Allergies No Known Allergies Allergy (Verified 09/01/18 16:57) Home Medications: Ambulatory Orders Medication Instructions Recorded Amantadine [Symmetrel] 100 mg PO TID 02/28/14 Baclofen [Lioresal] 10 mg PO 4X/DAY 02/28/14 Acetaminophen [Tylenol Tablet] 650 mg PO Q6H PRN PRN tablet 04/18/18 Citalopram [Celexa] 20 mg PO QHS 09/01/18 Escitalopram Oxalate [Lexapro] 10 mg PO DAILY 09/01/18 Famotidine [Pepcid] 20 mg PO BID 09/01/18 Gabapentin [Neurontin] 300 mg PO TIDCM 09/01/18 Hydroxyzine HCl 50 mg PO TID 09/01/18 Tetrabenazine 12.5 mg PO BID 09/01/18 Smoking Status: Current every day smoker Tobacco Use: Cigarettes - *Family History Maternal History Items: No pertinent history Review of Systems Constitutional: Denies: Chills, Fever, Weight Change HEENT: Denies: Head Aches, Sinus Congestion, Sinus Drainage Cardiovascular: Reports: Chest Pain. Denies: Palpitations Respiratory: Denies: Cough, Shortness of breath at rest, Sputum production Gastrointestinal: Denies: Abdominal Pain, Nausea, Vomiting Genitourinary: Denies: Dysuria Musculoskeletal: Denies: Joint Pain, Joint Tenderness Skin: Reports: Wounds - forehead contusion. Denies: Rash Neurological: Reports: - - chorea. Denies: Focal weakness, Numbness, Tingling Psychiatric: Denies: Anxiety, Depression, Homicidal Ideations, Suicidal Ideations Hematologic/ Lymphatic: Denies: Easy Bruising, Easy Bleeding VTE Information - Inpt Only VTE Present on Admission: No VTE Mechan Device Prophylaxis: None VTE Pharm Prophylaxis ordered?: Yes Patient Problems: Active and Suspected Problems Fall (Acute) Dehydration (Acute) - Physical Exam General: Alert, Oriented x3, Cooperative HEENT: Atraumatic, Normocephalic Neck: Supple Lungs: Clear to auscultation, Normal air movement Cardiovascular: Regular rate, No murmurs Abdomen: Bowel Sounds Present, Soft, Non Tender Extremities: No edema, Capillary Refill Less than 3 Seconds Skin: No rashes, - - forehead contusion present 2x 3cm Musculoskeletal: No Tenderness to Palpation of Joints or Extremities Neurological: - - moderate to severe chorea, purposeful movements, speech is coherent and he answers question appropriately Psych/Mental Status: Normal Affect, Appropriate Vital Signs Temp Pulse Resp BP Pulse Ox 98.6 F 108 H 18 147/97 H 95 09/01/18 16:53 09/01/18 17:04 09/01/18 16:53 09/01/18 16:53 09/01/18 16:53 Oxygen Delivery Method Room Air Weight: 169 lb 8.568 oz Body Mass Index (BMI) 21.7 Laboratory Tests Past 24 Hrs 09/01/18 09/01/18 09/01/18 17:30 17:30 17:30 WBC 11.5 H RBC 5.10 Hgb 15.6 Hct 47.0 MCV 92.2 MCH 30.6 MCHC 33.2 RDW 13.4 RDW Differential 44.9 H Plt Count 224 MPV 11.7 Immature Gran % (Auto) 0.200 Neut % (Auto) 87.6 H Lymph % (Auto) 5.9 L Stephens % (Auto) 6.0 Eos % (Auto) 0.1 Baso % (Auto) 0.2 Absolute Neuts (auto) 10.1 H Absolute Lymphs (auto) 0.68 L Total Counted Not Reportable Sodium 142 Potassium 4.0 Chloride 106 Carbon Dioxide 30.0 Anion Gap 6 BUN 14 Creatinine 0.95 Estim Creat Clear Calc 114.68 Est GFR (MDRD) Af Amer 113 Est GFR (MDRD) Non-Af 93 BUN/Creatinine Ratio 14.7 Glucose 73 L Calcium 8.7 Total Bilirubin 0.80 Direct Bilirubin 0.24 AST 79 H ALT 83 H Alkaline Phosphatase 88 Total Creatine Kinase 2406 H Total Protein 7.6 Albumin 4.2 Globulin 3.4 Assessment/Plan All Active Problems Fall (Acute) Dehydration (Acute) Assessment - Hung[place]'s Chorea Plan - admit to general medical floor - IV normal saline at 150cc/hour - repeat bmp, CK in am - fall precautions - regular diet - consult case management for DC planning - LMWH for DVT prophylaxis Code Visit Inpatient E&M: 00422 Init Hosp L3
[2018-09-01 19:47] VITALS: BP 134/80; PULSE 112; RESP 20; O2SAT 97
[2018-09-01 20:40] VITALS: BP 136/76; PULSE 113; RESP 18; TEMP 37.1; O2SAT 96
[2018-09-01 21:08] VITALS: BMI 21.7
[2018-09-01] MEDS: Amantadine 100 MG Capsule PO (21:23)
[2018-09-01] MEDS: Famotidine 20 MG Tablet PO (21:23)
[2018-09-01] MEDS: Baclofen 10 MG Tablet PO (21:23)
[2018-09-01] MEDS: Gabapentin 300 MG Capsule PO (21:24)
[2018-09-01] MEDS: hydrOXYzine PAM 25 MG Capsule 50 MG PO (21:24)
[2018-09-01] MEDS: Acetaminophen 325 MG Tablet 650 MG PO (21:31)
[2018-09-01] MEDS: Citalopram 20 MG Tablet PO (21:31)
[2018-09-02 02:24] VITALS: BP 123/74; PULSE 76; RESP 18; TEMP 36.6; O2SAT 100
[2018-09-02 02:30] VITALS: PULSE 76
[2018-09-02] MEDS: 0.9% Normal Saline 1,000 ML 150 ML IV ×4 (02:38→23:52)
[2018-09-02] MEDS: Acetaminophen 325 MG Tablet 650 MG PO (03:39)
[2018-09-02] MEDS: Amantadine 100 MG Capsule PO ×2 (05:33→21:43)
[2018-09-02] MEDS: hydrOXYzine PAM 25 MG Capsule 50 MG PO (05:33)
[2018-09-02 05:40] VITALS: BP 113/69; PULSE 81; RESP 18; TEMP 37.2; O2SAT 97
[2018-09-02 07:37] LABS: Anion Gap 6 (5-15); BUN 13 mg/dL (7-18); BUN/Creat Ratio 18.1 RATIO (10-20); CPK Total, Creatine Kinase 2450 U/L (39-308); Calcium,Total 7.7 mg/dL (8.5-10.1); Chloride 106 mmol/L (98-107); Creatinine, Serum 0.72 mg/dL (0.70-1.30); EST Glomerular Filtration Rate 129 mL/min (>60); Est Glom Filt Rate - Afr Amer 156 mL/min (>60); Estimated Creatinine Clearance 151.31 ml/min; Glucose 105 mg/dL (74-106); Potassium 3.4 mmol/L (3.5-5.1); Sodium Level 140 mmol/L (136-145)
[2018-09-02 08:09] VITALS: BP 124/88; PULSE 72; RESP 18; TEMP 36.9; O2SAT 95
[2018-09-02] MEDS: Gabapentin 300 MG Capsule PO ×3 (08:12→17:17)
[2018-09-02] MEDS: Escitalopram Oxalate 10 MG Tablet PO (08:13)
[2018-09-02] MEDS: Baclofen 10 MG Tablet PO ×4 (08:13→21:42)
[2018-09-02] MEDS: Enoxaparin 40 MG/0.4 ML Syringe SC (08:13)
[2018-09-02] MEDS: Famotidine 20 MG Tablet PO ×2 (08:14→21:42)
--- NOTE | 2018-09-02 13:07 | PCM.PROGNOTE ---
<Oneal Garza - Last Filed: 09/02/18 13:07> Patient Problems: Active and Suspected Problems Fall (Acute) Dehydration (Acute) Subjective: C/o sore ribs from fall and laying on floor. He is not SOB. He is otherwise well without complaints. - Physical Exam General: Alert, Oriented x3, Cooperative HEENT: Atraumatic, PERRLA, EOMI, Normocephalic Neck: Supple, No JVD, Negative Carotid Bruits Lungs: Clear to auscultation, Normal air movement Cardiovascular: Regular rate, No murmurs Abdomen: Bowel Sounds Present, Soft, Non Tender Extremities: No edema, Capillary Refill Less than 3 Seconds Skin: No rashes, No breakdown Musculoskeletal: No Tenderness to Palpation of Joints or Extremities Neurological: Cranial nerves II-XII grossly intact Psych/Mental Status: Normal Affect, Appropriate Vital Signs Temp Pulse Resp BP Pulse Ox 98.4 F 72 18 124/88 H 95 09/02/18 08:09 09/02/18 08:09 09/02/18 08:09 09/02/18 08:09 09/02/18 08:09 Oxygen Delivery Method Room Air Weight: 169 lb 8.568 oz Body Mass Index (BMI) 21.7 Intake and Output for Last 24 Hours 08/31/18 09/01/18 09/02/18 23:59 23:59 23:59 Intake Total 4242 / 4242 Output Total 950 / 950 Balance 3292 / 3292 Laboratory Tests Past 24 Hrs 09/01/18 09/01/18 09/01/18 17:30 17:30 17:30 WBC 11.5 H RBC 5.10 Hgb 15.6 Hct 47.0 MCV 92.2 MCH 30.6 MCHC 33.2 RDW 13.4 RDW Differential 44.9 H Plt Count 224 MPV 11.7 Immature Gran % (Auto) 0.200 Neut % (Auto) 87.6 H Lymph % (Auto) 5.[address] [place] % (Auto) 6.0 Eos % (Auto) 0.1 Baso % (Auto) 0.2 Absolute Neuts (auto) 10.1 H Absolute Lymphs (auto) 0.68 L Total Counted Not Reportable Sodium 142 Potassium 4.0 Chloride 106 Carbon Dioxide 30.0 Anion Gap 6 BUN 14 Creatinine 0.95 Estim Creat Clear Calc 114.68 Est GFR (MDRD) Af Amer 113 Est GFR (MDRD) Non-Af 93 BUN/Creatinine Ratio 14.7 Glucose 73 L Calcium 8.7 Total Bilirubin 0.80 Direct Bilirubin 0.24 AST 79 H ALT 83 H Alkaline Phosphatase 88 Total Creatine Kinase 2406 H Total Protein 7.6 Albumin 4.2 Globulin 3.4 09/02/18 06:10 WBC RBC Hgb Hct MCV MCH MCHC RDW RDW Differential Plt Count MPV Immature Gran % (Auto) Neut % (Auto) Lymph % (Auto) [place] % (Auto) Eos % (Auto) Baso % (Auto) Absolute Neuts (auto) Absolute Lymphs (auto) Total Counted Sodium 140 Potassium 3.4 L Chloride 106 Carbon Dioxide 28.0 Anion Gap 6 BUN 13 Creatinine 0.72 Estim Creat Clear Calc 151.31 Est GFR (MDRD) Af Amer 156 Est GFR (MDRD) Non-Af 129 BUN/Creatinine Ratio 18.1 Glucose 105 Calcium 7.7 L Total Bilirubin Direct Bilirubin AST ALT Alkaline Phosphatase Total Creatine Kinase 2450 H Total Protein Albumin Globulin Medical Necessity - Tobacco Use Smoking Status: Current every day smoker Tobacco Use: Cigarettes Assessment/Plan All Active Problems Fall (Acute) Dehydration (Acute) 1. Acute rhabdo 2/2 fall and laying on floor - continue IV fluids, replete low K. Trend CK. Rib pain - chest xray. 2. Rich's Chorea - dc tetrabenezine 2/2 abnormal LFTs per neuro. Chorea expected to worsen. amantadine decreased. hydroxyzine DCd. Would benefit from outpatient follow up with movement specialist 3. Anx/Depression - home meds - rn to confirm with pharmacy if he is actually on both citalopram and escitaloram. DVT ppx: lovenox DC planning: Placement. This patient was seen by Oneal Garza PA-C under the supervision of Dr. Warner <Gustavo Warner - Last Filed: 09/02/18 14:51> Subjective: Patient was seen and examined. 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 It seems he has a left sided facial droop too. History of multiple falls, as per aunt and several times daily. - Physical Exam General: Alert, Oriented x3, Cooperative HEENT: Atraumatic, PERRLA, EOMI, Normocephalic Neck: Supple, No JVD, Negative Carotid Bruits Lungs: Clear to auscultation, Normal air movement, No rhonchi, No wheeze, No rales Cardiovascular: Regular rate, Regular Rhythm, Normal S1, Normal S2, No murmurs Abdomen: Bowel Sounds Present, Soft, Non Tender, Non-Distended Extremities: No edema, Capillary Refill Less than 3 Seconds Skin: No rashes, No breakdown Musculoskeletal: No Tenderness to Palpation of Joints or Extremities Neurological: Cranial nerves II-XII grossly intact, Facial Droop - Left-sided facial droop chronic in nature, - - Diffuse coliform movement of head and neck, upper extremities and trunk. Unsteady gait Psych/Mental Status: Normal Affect, Appropriate Vital Signs Temp Pulse Resp BP Pulse Ox 98.8 F 85 18 124/87 H 98 09/02/18 14:00 09/02/18 14:00 09/02/18 14:00 09/02/18 14:00 09/02/18 14:00 Oxygen Delivery Method Room Air Weight: 169 lb 8.568 oz Body Mass Index (BMI) 21.7 Intake and Output for Last 24 Hours 08/31/18 09/01/18 09/02/18 23:59 23:59 23:59 Intake Total 4242 / 4242 Output Total 950 / 950 Balance 3292 / 3292 Laboratory Tests Past 24 Hrs 09/01/18 09/01/18 09/01/18 17:30 17:30 17:30 WBC 11.5 H RBC 5.10 Hgb 15.6 Hct 47.0 MCV 92.2 MCH 30.6 MCHC 33.2 RDW 13.4 RDW Differential 44.9 H Plt Count 224 MPV 11.7 Immature Gran % (Auto) 0.200 Neut % (Auto) 87.6 H Lymph % (Auto) 5.[address] [place] % (Auto) 6.0 Eos % (Auto) 0.1 Baso % (Auto) 0.2 Absolute Neuts (auto) 10.1 H Absolute Lymphs (auto) 0.68 L Total Counted Not Reportable Sodium 142 Potassium 4.0 Chloride 106 Carbon Dioxide 30.0 Anion Gap 6 BUN 14 Creatinine 0.95 Estim Creat Clear Calc 114.68 Est GFR (MDRD) Af Amer 113 Est GFR (MDRD) Non-Af 93 BUN/Creatinine Ratio 14.7 Glucose 73 L Calcium 8.7 Total Bilirubin 0.80 Direct Bilirubin 0.24 AST 79 H ALT 83 H Alkaline Phosphatase 88 Total Creatine Kinase 2406 H Total Protein 7.6 Albumin 4.2 Globulin 3.4 09/02/18 06:10 WBC RBC Hgb Hct MCV MCH MCHC RDW RDW Differential Plt Count MPV Immature Gran % (Auto) Neut % (Auto) Lymph % (Auto) [place]. [place] % (Auto) Eos % (Auto) Baso % (Auto) Absolute Neuts (auto) Absolute Lymphs (auto) Total Counted Sodium 140 Potassium 3.4 L Chloride 106 Carbon Dioxide 28.0 Anion Gap 6 BUN 13 Creatinine 0.72 Estim Creat Clear Calc 151.31 Est GFR (MDRD) Af Amer 156 Est GFR (MDRD) Non-Af 129 BUN/Creatinine Ratio 18.1 Glucose 105 Calcium 7.7 L Total Bilirubin Direct Bilirubin AST ALT Alkaline Phosphatase Total Creatine Kinase 2450 H Total Protein Albumin Globulin Assessment/Plan This patient was seen in conjunction with Oneal GIL. I have independently interviewed and examined the patient and reviewed pertinent history, examination findings, laboratory and plan of management. I have reviewed the note and agree with the documented findings with the few additional points. In brief, patient is admitted for acute rhabdomyolysis secondary to fall. Patient has recurrent fall even on single day. Discussed with the neurologist Dr. Martin. LFTs are elevated, ALT 83, AST 79. Amantadine frequency decreased to 100 mg twice daily. Tetrabenazine was all secondary to elevated LFT. Follow with Dr. Cortez as an outpatient. CK still elevated 2450, similar to yesterday I have discussed my assessment with Oneal GIL and orders have been reviewed. Active Medications Acetaminophen (Tylenol) 650 mg PO Q6H PRN PRN PRN Reason: mild to mod pain/fever Last Admin: 09/02/18 03:39 Dose: 650 mg Amantadine HCl (Symmetrel) 100 mg PO BID [facility] Baclofen (Lioresal) 10 mg PO 4X/DAY [facility] Last Admin: 09/02/18 14:25 Dose: 10 mg Citalopram Hydrobromide (Celexa) 20 mg PO QHS [facility] Last Admin: 09/01/18 21:31 Dose: 20 mg Enoxaparin Sodium (Lovenox) 40 mg SC DAILY@1000 [facility] Last Admin: 09/02/18 08:13 Dose: 40 mg Escitalopram Oxalate (Lexapro) 10 mg PO DAILY [facility] Last Admin: 09/02/18 08:13 Dose: 10 mg Famotidine (Pepcid) 20 mg PO BID [facility] Last Admin: 09/02/18 08:14 Dose: 20 mg Gabapentin (Neurontin) 300 mg PO TIDCM [facility] Last Admin: 09/02/18 12:16 Dose: 300 mg Sodium Chloride () 1,000 mls @ 150 mls/hr IV .Q6H40M [facility] Last Admin: 09/02/18 09:13 Dose: 150 mls/hr Magnesium Hydroxide (Milk Of Magnesia) 30 ml PO DAILY PRN PRN PRN Reason: Constipation Nicotine (Nicoderm Cq (Pbkc)) 14 mg TRANSDERM. DAILY [facility] Last Admin: 09/02/18 08:15 Dose: 14 mg Nutritional Formula (Lactose Free) (Ensure Enlive) 120 ml PO 4X/DAY [facility] Last Admin: 09/02/18 14:25 Dose: 120 ml Potassium Chloride (K-Dur) 40 meq PO BIDCM [facility] Stop: 09/02/18 17:01 Last Admin: 09/02/18 10:27 Dose: 40 meq Sodium Chloride () 5 - 30 ml IV UD PRN PRN Reason: SALINE FLUSH Code Visit Inpatient E&M: 01825 Subs Hosp L3
--- NOTE | 2018-09-02 13:12 | RAD_ITS ---
STUDY: X-RAY CHEST REASON FOR EXAM: Male, 37 years old. Rib pain after fall. TECHNIQUE: PA and lateral views of the chest. COMPARISON: None. FINDINGS: The lungs are mildly hyperexpanded. There is no focal mass or infiltrate. There is no pneumothorax. There is slight blunting of the right lateral and posterior costophrenic angle. A small pleural effusion cannot be ruled out. Normal size heart. Normal mediastinum and peggy. Normal visualized pulmonary arteries. Normal visualized aortic arch and descending thoracic aorta. Normal visualized thoracic spine. There is degenerative osteoarthritis of the bilateral shoulders. No visualized rib fractures. There is no demonstrated abnormality of the visualized soft tissue structures of the upper abdomen. RAD/Chest PA and Lateral IMPRESSION: Minimal pleural blunting of the right chest. Question small pleural effusion. The study is otherwise normal. Electronically Signed: Paramjit Mariano DO at 16:55 EST Tel [phone], Service support ,
--- NOTE | 2018-09-02 13:14 | PN_ITS ---
<Oneal Garza - Last Filed: 09/02/18 13:07> Patient Problems: Active and Suspected Problems Fall (Acute) Dehydration (Acute) Subjective: C/o sore ribs from fall and laying on floor. He is not SOB. He is otherwise well without complaints. - Physical Exam General: Alert, Oriented x3, Cooperative HEENT: Atraumatic, PERRLA, EOMI, Normocephalic Neck: Supple, No JVD, Negative Carotid Bruits Lungs: Clear to auscultation, Normal air movement Cardiovascular: Regular rate, No murmurs Abdomen: Bowel Sounds Present, Soft, Non Tender Extremities: No edema, Capillary Refill Less than 3 Seconds Skin: No rashes, No breakdown Musculoskeletal: No Tenderness to Palpation of Joints or Extremities Neurological: Cranial nerves II-XII grossly intact Psych/Mental Status: Normal Affect, Appropriate Vital Signs Temp Pulse Resp BP Pulse Ox 98.4 F 72 18 124/88 H 95 09/02/18 08:09 09/02/18 08:09 09/02/18 08:09 09/02/18 08:09 09/02/18 08:09 Oxygen Delivery Method Room Air Weight: 169 lb 8.568 oz Body Mass Index (BMI) 21.7 Intake and Output for Last 24 Hours 08/31/18 09/01/18 09/02/18 23:59 23:59 23:59 Intake Total 4242 / 4242 Output Total 950 / 950 Balance 3292 / 3292 Laboratory Tests Past 24 Hrs 09/01/18 09/01/18 09/01/18 17:30 17:30 17:30 WBC 11.5 H RBC 5.10 Hgb 15.6 Hct 47.0 MCV 92.2 MCH 30.6 MCHC 33.2 RDW 13.4 RDW Differential 44.9 H Plt Count 224 MPV 11.7 Immature Gran % (Auto) 0.200 Neut % (Auto) 87.6 H Lymph % (Auto) 5.9 L Wake % (Auto) 6.0 Eos % (Auto) 0.1 Baso % (Auto) 0.2 Absolute Neuts (auto) 10.1 H Absolute Lymphs (auto) 0.68 L Total Counted Not Reportable Sodium 142 Potassium 4.0 Chloride 106 Carbon Dioxide 30.0 Anion Gap 6 BUN 14 Creatinine 0.95 Estim Creat Clear Calc 114.68 Est GFR (MDRD) Af Amer 113 Est GFR (MDRD) Non-Af 93 BUN/Creatinine Ratio 14.7 Glucose 73 L Calcium 8.7 Total Bilirubin 0.80 Direct Bilirubin 0.24 AST 79 H ALT 83 H Alkaline Phosphatase 88 Total Creatine Kinase 2406 H Total Protein 7.6 Albumin 4.2 Globulin 3.4 09/02/18 06:10 WBC RBC Hgb Hct MCV MCH MCHC RDW RDW Differential Plt Count MPV Immature Gran % (Auto) Neut % (Auto) Lymph % (Auto) Wake % (Auto) Eos % (Auto) Baso % (Auto) Absolute Neuts (auto) Absolute Lymphs (auto) Total Counted Sodium 140 Potassium 3.4 L Chloride 106 Carbon Dioxide 28.0 Anion Gap 6 BUN 13 Creatinine 0.72 Estim Creat Clear Calc 151.31 Est GFR (MDRD) Af Amer 156 Est GFR (MDRD) Non-Af 129 BUN/Creatinine Ratio 18.1 Glucose 105 Calcium 7.7 L Total Bilirubin Direct Bilirubin AST ALT Alkaline Phosphatase Total Creatine Kinase 2450 H Total Protein Albumin Globulin Medical Necessity - Tobacco Use Smoking Status: Current every day smoker Tobacco Use: Cigarettes Assessment/Plan All Active Problems Fall (Acute) Dehydration (Acute) 1. Acute rhabdo 2/2 fall and laying on floor - continue IV fluids, replete low K. Trend CK. Rib pain - chest xray. 2. Spencer's Chorea - dc tetrabenezine 2/2 abnormal LFTs per neuro. Chorea expected to worsen. amantadine decreased. hydroxyzine DCd. Would benefit from outpatient follow up with movement specialist 3. Anx/Depression - home meds - rn to confirm with pharmacy if he is actually on both citalopram and escitaloram. DVT ppx: lovenox DC planning: Placement. This patient was seen by Oneal Garza PA-C under the supervision of Dr. Warner <Gustavo Warner - Last Filed: 09/02/18 14:51> Subjective: Patient was seen and examined. 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 It seems he has a left sided facial droop too. History of multiple falls, as per aunt and several times daily. - Physical Exam General: Alert, Oriented x3, Cooperative HEENT: Atraumatic, PERRLA, EOMI, Normocephalic Neck: Supple, No JVD, Negative Carotid Bruits Lungs: Clear to auscultation, Normal air movement, No rhonchi, No wheeze, No rales Cardiovascular: Regular rate, Regular Rhythm, Normal S1, Normal S2, No murmurs Abdomen: Bowel Sounds Present, Soft, Non Tender, Non-Distended Extremities: No edema, Capillary Refill Less than 3 Seconds Skin: No rashes, No breakdown Musculoskeletal: No Tenderness to Palpation of Joints or Extremities Neurological: Cranial nerves II-XII grossly intact, Facial Droop - Left-sided facial droop chronic in nature, - - Diffuse coliform movement of head and neck, upper extremities and trunk. Unsteady gait Psych/Mental Status: Normal Affect, Appropriate Vital Signs Temp Pulse Resp BP Pulse Ox 98.8 F 85 18 124/87 H 98 09/02/18 14:00 09/02/18 14:00 09/02/18 14:00 09/02/18 14:00 09/02/18 14:00 Oxygen Delivery Method Room Air Weight: 169 lb 8.568 oz Body Mass Index (BMI) 21.7 Intake and Output for Last 24 Hours 08/31/18 09/01/18 09/02/18 23:59 23:59 23:59 Intake Total 4242 / 4242 Output Total 950 / 950 Balance 3292 / 3292 Laboratory Tests Past 24 Hrs 09/01/18 09/01/18 09/01/18 17:30 17:30 17:30 WBC 11.5 H RBC 5.10 Hgb 15.6 Hct 47.0 MCV 92.2 MCH 30.6 MCHC 33.2 RDW 13.4 RDW Differential 44.9 H Plt Count 224 MPV 11.7 Immature Gran % (Auto) 0.200 Neut % (Auto) 87.6 H Lymph % (Auto) 5.9 L Wake % (Auto) 6.0 Eos % (Auto) 0.1 Baso % (Auto) 0.2 Absolute Neuts (auto) 10.1 H Absolute Lymphs (auto) 0.68 L Total Counted Not Reportable Sodium 142 Potassium 4.0 Chloride 106 Carbon Dioxide 30.0 Anion Gap 6 BUN 14 Creatinine 0.95 Estim Creat Clear Calc 114.68 Est GFR (MDRD) Af Amer 113 Est GFR (MDRD) Non-Af 93 BUN/Creatinine Ratio 14.7 Glucose 73 L Calcium 8.7 Total Bilirubin 0.80 Direct Bilirubin 0.24 AST 79 H ALT 83 H Alkaline Phosphatase 88 Total Creatine Kinase 2406 H Total Protein 7.6 Albumin 4.2 Globulin 3.4 09/02/18 06:10 WBC RBC Hgb Hct MCV MCH MCHC RDW RDW Differential Plt Count MPV Immature Gran % (Auto) Neut % (Auto) Lymph % (Auto) Wake % (Auto) Eos % (Auto) Baso % (Auto) Absolute Neuts (auto) Absolute Lymphs (auto) Total Counted Sodium 140 Potassium 3.4 L Chloride 106 Carbon Dioxide 28.0 Anion Gap 6 BUN 13 Creatinine 0.72 Estim Creat Clear Calc 151.31 Est GFR (MDRD) Af Amer 156 Est GFR (MDRD) Non-Af 129 BUN/Creatinine Ratio 18.1 Glucose 105 Calcium 7.7 L Total Bilirubin Direct Bilirubin AST ALT Alkaline Phosphatase Total Creatine Kinase 2450 H Total Protein Albumin Globulin Assessment/Plan This patient was seen in conjunction with Oneal GIL. I have independently interviewed and examined the patient and reviewed pertinent history, examination findings, laboratory and plan of management. I have reviewed the note and agree with the documented findings with the few additional points. In brief, patient is admitted for acute rhabdomyolysis secondary to fall. Patient has recurrent fall even on single day. Discussed with the neurologist Dr. Martin. LFTs are elevated, ALT 83, AST 79. Amantadine frequency decreased to 100 mg twice daily. Tetrabenazine was all secondary to elevated LFT. Follow with Dr. Cortez as an outpatient. CK still elevated 2450, similar to yesterday I have discussed my assessment with Oneal GIL and orders have been reviewed. Active Medications Acetaminophen (Tylenol) 650 mg PO Q6H PRN PRN PRN Reason: mild to mod pain/fever Last Admin: 09/02/18 03:39 Dose: 650 mg Amantadine HCl (Symmetrel) 100 mg PO BID [facility] Baclofen (Lioresal) 10 mg PO 4X/DAY [facility] Last Admin: 09/02/18 14:25 Dose: 10 mg Citalopram Hydrobromide (Celexa) 20 mg PO QHS [facility] Last Admin: 09/01/18 21:31 Dose: 20 mg Enoxaparin Sodium (Lovenox) 40 mg SC DAILY@1000 [facility] Last Admin: 09/02/18 08:13 Dose: 40 mg Escitalopram Oxalate (Lexapro) 10 mg PO DAILY [facility] Last Admin: 09/02/18 08:13 Dose: 10 mg Famotidine (Pepcid) 20 mg PO BID [facility] Last Admin: 09/02/18 08:14 Dose: 20 mg Gabapentin (Neurontin) 300 mg PO TIDCM [facility] Last Admin: 09/02/18 12:16 Dose: 300 mg Sodium Chloride () 1,000 mls @ 150 mls/hr IV .Q6H40M [facility] Last Admin: 09/02/18 09:13 Dose: 150 mls/hr Magnesium Hydroxide (Milk Of Magnesia) 30 ml PO DAILY PRN PRN PRN Reason: Constipation Nicotine (Nicoderm Cq (Pbkc)) 14 mg TRANSDERM. DAILY [facility] Last Admin: 09/02/18 08:15 Dose: 14 mg Nutritional Formula (Lactose Free) (Ensure Enlive) 120 ml PO 4X/DAY [facility] Last Admin: 09/02/18 14:25 Dose: 120 ml Potassium Chloride (K-Dur) 40 meq PO BIDCM [facility] Stop: 09/02/18 17:01 Last Admin: 09/02/18 10:27 Dose: 40 meq Sodium Chloride () 5 - 30 ml IV UD PRN PRN Reason: SALINE FLUSH Code Visit Inpatient E&M: 89484 Subs Hosp L3
--- NOTE | 2018-09-02 13:34 | NURSING ---
SPOKE TO [facility], [facility] FOR UPDATED HOME MED LIST.
[2018-09-02 14:00] VITALS: BP 124/87; PULSE 85; RESP 18; TEMP 37.1; O2SAT 98
--- NOTE | 2018-09-02 14:49 | PCM.TXEXTCAR ---
- Diet 09/01/18 20:46 Diet: Regular Diet Food consistency:: Regular Liquid Consistency:: Regular/Thin - Routine Orders/Code Status Suppository Type: Dulcolax 10mg Suppository Frequency: Daily PRN Routine Lab Work: CBC - 1 week, - - CMP 3 days - Wound(s) R knee Wound Type: Abrasion R calf Wound Type: Abrasion R flank Wound Type: Abrasion L upper knee Wound Type: Abrasion L lower knee Wound Type: Abrasion L ankle Wound Type: Abrasion SCATTERED BUES/BLES Wound Type: Abrasion - Therapies Physical Therapy: Eval and Treat Occupational Therapy: Eval and Treat - Problem/Diagnosis (1) Rhabdomyolysis Status: Acute Current Visit: Yes (2) Fall Status: Acute Current Visit: Yes (3) Anxiety Status: Chronic Current Visit: Yes (4) Huntingtons chorea Status: Chronic Current Visit: Yes - Allergies/Procedures Done in Hospital Allergies/Adverse Reactions: Allergies No Known Allergies Allergy (Verified 09/01/18 16:57) Procedures: None - Type of Care/Length of Stay Estimated LOS: Convalescent Care Less Than 30 days Type of Care Needed: Skilled Rehab Potential: Fair Prognosis: Fair - Additional Orders/Day of Discharge Day of Discharge: 09/02/18 - Dietary and Speech Recommendations Dietitian Recommendations/Changes: Will provide Magic Cup BID to provide extra calories and protein if consumed- increased energy expenditure d/t Huntingtons. - Follow Up Care Primary Care Physician: Care Physician,No Primary [Primary Care Provider] - Please follow up with your Primary Care Physician in: 2 weeks Please Follow Up With: Maury Cortez MD When: 2 weeks Please Follow Up With: Movement Specialist When: 2 weeks
--- NOTE | 2018-09-02 15:19 | CASEMGMT ---
Social Work Note CINTHIA met with pt to confirm discharge plans. Pt is alert and orientated x3. Pt confirms that he wishes to discharge to [facility]. CINTHIA faxed referral to Selene at [facility]. Per Selene she is able to accept pt. CINTHIA placed a call to Pat Brice at [facility] and updated her on LOC and that pt has [place] and make trip the screen. CINTHIA asked Pat if a categorical determination could be completed for pt. Pat states she will review LOC and let this worker know about categorical determination. CINTHIA faxed LOC to [facility]. Plan: [facility] pending LOC Demetria Hammer [employer] WE[employer] DEVELOPER, PRECISION THREAD GRINDER OPERATOR
--- NOTE | 2018-09-02 16:24 | CHAPLAIN ---
Type of Pastoral Visit _x__ Initial Visit ___ Follow-up Visit ___ On-call Visit ___ General Patient Visit ___ Spiritual Assessment ___ Family Conference ___ Bereavement ___ Rapid Response ___ Code Blue ___ Other (describe below) Pastoral Care Referral From _x__ Patient ___ Family ___ Nurse ___ Physician ___ Dehydrogenation Operator ___ Modeling Agency Manager ___ Other (describe below) Sacrament/Intervention _x__ Active listening ___ Anointing ___ Jain _x__ Bereavement ___ Communion _x__ Nina exploration ___ ___ Life review _x__ Prayer ___ Reconciliation ___ Sacrament of Sick _x__ Supportive presence ___ Wedding ___ Other (describe below) Pastoral Comments patient was seen in previous admissions by this sanitation tank washer; pt recognizes sanitation tank washer immediately; pt states that he fell and bumps and bruises are visible on face; pt also tells sanitation tank washer that his grandmother with whom he made his home has ; pt describes finding her and that this is part of life; pt parents are also; pt presents an optimistic attitude; pt says that he will go to [facility] and that he is fine with that because I will be around people; discussion on how pt is coping and how he is anticipating these changes; pt welcomes prayer; pt says that we can talk when asked what things would he like sanitation tank washer to do for him; pt says that he is of the [employer] nina and goes when he is able saying, this is a pretty time of year; pt asks about sanitation tank washer and his life and family
[2018-09-02 20:33] VITALS: BP 125/70; PULSE 78; RESP 19; TEMP 36.9; O2SAT 97
[2018-09-02] MEDS: Citalopram 20 MG Tablet PO (21:42)
[2018-09-03 03:12] VITALS: BP 120/84; PULSE 69; RESP 17; TEMP 36.6; O2SAT 98
[2018-09-03 06:18] LABS: Anion Gap 4 (5-15); BUN 11 mg/dL (7-18); BUN/Creat Ratio 16.2 RATIO (10-20); Calcium,Total 7.8 mg/dL (8.5-10.1); Chloride 113 mmol/L (98-107); Creatinine, Serum 0.68 mg/dL (0.70-1.30); EST Glomerular Filtration Rate 139 mL/min (>60); Est Glom Filt Rate - Afr Amer 168 mL/min (>60); Estimated Creatinine Clearance 160.21 ml/min; Glucose 88 mg/dL (74-106); Potassium 4.4 mmol/L (3.5-5.1); Sodium Level 144 mmol/L (136-145)
[2018-09-03] MEDS: 0.9% Normal Saline 1,000 ML 150 ML IV (07:02)
[2018-09-03 07:29] LABS: CPK Total, Creatine Kinase 1570 U/L (39-308)
[2018-09-03 07:50] VITALS: BP 129/89; PULSE 79; RESP 16; TEMP 36.7; O2SAT 97
[2018-09-03] MEDS: Gabapentin 300 MG Capsule PO ×2 (08:08→11:47)
[2018-09-03] MEDS: Escitalopram Oxalate 10 MG Tablet PO (09:31)
[2018-09-03] MEDS: Enoxaparin 40 MG/0.4 ML Syringe SC (09:32)
[2018-09-03] MEDS: Baclofen 10 MG Tablet PO (09:32)
[2018-09-03] MEDS: Amantadine 100 MG Capsule PO (09:33)
[2018-09-03] MEDS: Famotidine 20 MG Tablet PO (09:33)
--- NOTE | 2018-09-03 12:12 | PCM.DC.SUM ---
<Oneal Garza - Last Filed: 09/03/18 12:12> Discharge Date and Diagnosis Date of Admission: 09/01/18 Date of Discharge: 09/03/18 - Primary Discharge Diagnosis Active and Suspected Problems Fall (Acute) Dehydration (Acute) Rhabdomyolysis (Acute) - Secondary Discharge Diagnosis Chronic Problems Huntingtons chorea (Chronic) Anxiety (Chronic) Hospital Course and Treatment Imaging Results: CT/Brain/Head without Contrast IMPRESSION: 1. Soft tissue hematoma over the left frontal region. There is no underlying calvarial abnormality. 2. No evidence of acute intracranial abnormality. RAD/Chest PA and Lateral IMPRESSION: Minimal pleural blunting of the right chest. Question small pleural effusion. The study is otherwise normal. Consults: Neuro - Veronica Operations: None Procedures: None Summary of Care Provided: Hospital Course: The patient is a 37 year old [facility] of Huntingtons disease with significant chorea, anxiety and depression, who presents to the ER after falling at home and laying on the floor for several hours. He was found to have rhabdo with elevated CK and liver enzymes. He was admitted to the [facility] and provided with aggressive IV fluids. Neuro was consulted who discontinued his hydroxyzine and tetrabenezine due to his LFT abnormalities. He had some rib pain after the fall so a CXR was ordered which was negative. He had no SOB. CK improved daily. He had ongoing debility and SNF was recommended. He was accepted, and discharged to SNF in stable conidition. Please follow up with Neurology in 2 weeks, and PCP in 1-2 weeks. He would benefit from referral to a movement specialist as an outpatient. This patient was seen by Oneal Garza PA-C under the supervision of Dr. Warner. [] - Physical Exam General: Alert, Oriented x3, Cooperative HEENT: Atraumatic, PERRLA, EOMI, Normocephalic Neck: Supple, No JVD, Negative Carotid Bruits Lungs: Clear to auscultation, Normal air movement Cardiovascular: Regular rate, No murmurs Abdomen: Bowel Sounds Present, Soft, Non Tender Extremities: No edema, Capillary Refill Less than 3 Seconds Skin: No rashes, No breakdown Musculoskeletal: No Tenderness to Palpation of Joints or Extremities Neurological: Cranial nerves II-XII grossly intact, - - choreiform movements. Psych/Mental Status: Normal Affect, Appropriate, Alert and oriented to time, place, person, mood and affect Vital Signs Temp Pulse Resp BP Pulse Ox 98.0 F 79 16 129/89 H 97 09/03/18 07:50 09/03/18 07:50 09/03/18 07:50 09/03/18 07:50 09/03/18 07:50 Oxygen Delivery Method Room Air Weight: 169 lb 8.568 oz Body Mass Index (BMI) 21.7 Intake and Output for Last 24 Hours 09/01/18 09/02/18 09/03/18 23:59 23:59 23:59 Intake Total 4242 / 4242 2717 / 2717 Output Total 950 / 950 650 / 650 Balance 3292 / 3292 2067 / 2067 Laboratory Tests Past 24 Hrs 09/03/18 09/03/18 05:15 05:15 Sodium 144 Potassium 4.4 Chloride 113 H Carbon Dioxide 27.0 Anion Gap 4 L BUN 11 Creatinine 0.68 L Estim Creat Clear Calc 160.21 Est GFR (MDRD) Af Amer 168 Est GFR (MDRD) Non-Af 139 BUN/Creatinine Ratio 16.2 Glucose 88 Calcium 7.8 L Total Creatine Kinase 1570 H Discharge Diet: No Restrictions Discharge Activity: Return to Normal Activity Home Medications: Medications to take at Discharge Baclofen [Lioresal] 10 mg PO 4X/DAY 02/28/14 Acetaminophen [Tylenol Tablet] 650 mg PO Q6H PRN PRN tablet 04/18/18 Citalopram [Celexa] 20 mg PO QHS 09/01/18 Famotidine [Pepcid] 20 mg PO BID 09/01/18 Gabapentin [Neurontin] 300 mg PO TIDCM 09/01/18 Amantadine [Symmetrel] 100 mg PO BID capsule 09/03/18 Ensure Enlive 120 ml PO 4X/DAY liquid 09/03/18 Magnesium Hydroxide [Milk Of Magnesia] 30 ml PO DAILY PRN PRN udc 09/03/18 Nicotine [Nicoderm] 14 mg TRANSDERM. DAILY patch 09/03/18 Primary Care Physician: Care Physician,No Primary [Primary Care Provider] - Please follow up with your Primary Care Physician in: 2 weeks Please Follow Up With: Maury Cortez MD When: 2 weeks Please Follow Up With: Movement Specialist When: 2 weeks Disposition: Long Term facility Minutes spent on discharge:: 35 Patient Condition:: Stable Medical Necessity - Tobacco Use Smoking Status: Current every day smoker Tobacco Use: Cigarettes Meaningful Use Info Meaningful Use Diagnoses (Choose all that apply): None applicable <Gustavo Warner - Last Filed: 09/03/18 16:15> Discharge Date and Diagnosis - Secondary Discharge Diagnosis Chronic Problems Huntingtons chorea (Chronic) Anxiety (Chronic) Hospital Course and Treatment Summary of Care Provided: This patient was seen in conjunction with Oneal GIL. I have independently interviewed and examined the patient and reviewed pertinent history, examination findings, laboratory and plan of management. I have reviewed the note and agree with the documented findings with the few additional points. In brief, patient is admitted for acute rhabdomyolysis secondary to fall. Patient has recurrent fall even on single day. Discussed with the neurologist Dr. Martin. LFTs are elevated, ALT 83, AST 79. Amantadine frequency decreased to 100 mg twice daily. Tetrabenazine was hold secondary to elevated LFT. Follow with Dr. Cortez as an outpatient. CK was elevated 2450; improved to 1570 I have discussed my assessment with Oneal GIL and orders have been reviewed. Discharge medication reconciliation done. Discharge follow-up instructions discussed with the patient. The patient is discharged to SNF. Total time spent, exact 35 minutes on discharge meds reconciliation, examination, review of imaging and blood test and discussion with the patient on follow-up instructions. [] Laboratory Results 09/03/18 05:15: Sodium 144, Potassium 4.4, Chloride 113 H, Carbon Dioxide 27.0, Anion Gap 4 L, BUN 11, Creatinine 0.68 L, Estim Creat Clear Calc 160.21, Est GFR (MDRD) Af Amer 168, Est GFR (MDRD) Non-Af 139, BUN/Creatinine Ratio 16.2, Glucose 88, Calcium 7.8 L 09/03/18 05:15: Total Creatine Kinase 1570 H Subjective: Patient was seen and examined. Patient still having chorea-like movement but better than yesterday Objective: General: Alert, Oriented x3, Cooperative HEENT: Atraumatic, PERRLA, EOMI, Normocephalic Neck: Supple, No JVD, Negative Carotid Bruits Lungs: Clear to auscultation, Normal air movement, No rhonchi, No wheeze, No rales Cardiovascular: Regular rate, Regular Rhythm, Normal S1, Normal S2, No murmurs Abdomen: Bowel Sounds Present, Soft, Non Tender, Non-Distended Extremities: No edema, Capillary Refill Less than 3 Seconds Skin: No rashes, No breakdown Musculoskeletal: No Tenderness to Palpation of Joints or Extremities Neurological: Cranial nerves II-XII grossly intact, Facial Droop, right left-sided facial droop chronic in nature, Diffuse chorea movement of head and neck, upper extremities and trunk. Unsteady gait. Psych/Mental Status: Normal Affect, Appropriate - Physical Exam Vital Signs Temp Pulse Resp BP Pulse Ox 98.6 F 85 16 147/88 H 97 09/03/18 13:41 09/03/18 13:41 09/03/18 13:41 09/03/18 13:41 09/03/18 13:41 Oxygen Delivery Method Room Air Weight: 169 lb 8.568 oz Body Mass Index (BMI) 21.7 Intake and Output for Last 24 Hours 09/01/18 09/02/18 09/03/18 23:59 23:59 23:59 Intake Total 4242 / 4242 2717 / 2717 Output Total 950 / 950 650 / 650 Balance 3292 / 3292 2067 / 2067 Laboratory Tests Past 24 Hrs 09/03/18 09/03/18 05:15 05:15 Sodium 144 Potassium 4.4 Chloride 113 H Carbon Dioxide 27.0 Anion Gap 4 L BUN 11 Creatinine 0.68 L Estim Creat Clear Calc 160.21 Est GFR (MDRD) Af Amer 168 Est GFR (MDRD) Non-Af 139 BUN/Creatinine Ratio 16.2 Glucose 88 Calcium 7.8 L Total Creatine Kinase 1570 H Code Visit Inpatient E&M: 97543 Disch Hosp
--- NOTE | 2018-09-03 12:16 | DS.PCM_ITS ---
<Oneal Garza - Last Filed: 09/03/18 12:12> Discharge Date and Diagnosis Date of Admission: 09/01/18 Date of Discharge: 09/03/18 - Primary Discharge Diagnosis Active and Suspected Problems Fall (Acute) Dehydration (Acute) Rhabdomyolysis (Acute) - Secondary Discharge Diagnosis Chronic Problems Huntingtons chorea (Chronic) Anxiety (Chronic) Hospital Course and Treatment Imaging Results: CT/Brain/Head without Contrast IMPRESSION: 1. Soft tissue hematoma over the left frontal region. There is no underlying calvarial abnormality. 2. No evidence of acute intracranial abnormality. RAD/Chest PA and Lateral IMPRESSION: Minimal pleural blunting of the right chest. Question small pleural effusion. The study is otherwise normal. Consults: Neuro - Veronica Operations: None Procedures: None Summary of Care Provided: Hospital Course: The patient is a 37 year old [facility] of Huntingtons disease with significant chorea, anxiety and depression, who presents to the ER after falling at home and laying on the floor for several hours. He was found to have rhabdo with elevated CK and liver enzymes. He was admitted to the [facility] and provided with aggressive IV fluids. Neuro was consulted who discontinued his hydroxyzine and tetrabenezine due to his LFT abnormalities. He had some rib pain after the fall so a CXR was ordered which was negative. He had no SOB. CK improved daily. He had ongoing debility and SNF was recommended. He was accepted, and discharged to SNF in stable conidition. Please follow up with Neurology in 2 weeks, and PCP in 1-2 weeks. He would benefit from referral to a movement specialist as an outpatient. This patient was seen by Oneal Garza PA-C under the supervision of Dr. Warner. [] - Physical Exam General: Alert, Oriented x3, Cooperative HEENT: Atraumatic, PERRLA, EOMI, Normocephalic Neck: Supple, No JVD, Negative Carotid Bruits Lungs: Clear to auscultation, Normal air movement Cardiovascular: Regular rate, No murmurs Abdomen: Bowel Sounds Present, Soft, Non Tender Extremities: No edema, Capillary Refill Less than 3 Seconds Skin: No rashes, No breakdown Musculoskeletal: No Tenderness to Palpation of Joints or Extremities Neurological: Cranial nerves II-XII grossly intact, - - choreiform movements. Psych/Mental Status: Normal Affect, Appropriate, Alert and oriented to time, place, person, mood and affect Vital Signs Temp Pulse Resp BP Pulse Ox 98.0 F 79 16 129/89 H 97 09/03/18 07:50 09/03/18 07:50 09/03/18 07:50 09/03/18 07:50 09/03/18 07:50 Oxygen Delivery Method Room Air Weight: 169 lb 8.568 oz Body Mass Index (BMI) 21.7 Intake and Output for Last 24 Hours 09/01/18 09/02/18 09/03/18 23:59 23:59 23:59 Intake Total 4242 / 4242 2717 / 2717 Output Total 950 / 950 650 / 650 Balance 3292 / 3292 2067 / 2067 Laboratory Tests Past 24 Hrs 09/03/18 09/03/18 05:15 05:15 Sodium 144 Potassium 4.4 Chloride 113 H Carbon Dioxide 27.0 Anion Gap 4 L BUN 11 Creatinine 0.68 L Estim Creat Clear Calc 160.21 Est GFR (MDRD) Af Amer 168 Est GFR (MDRD) Non-Af 139 BUN/Creatinine Ratio 16.2 Glucose 88 Calcium 7.8 L Total Creatine Kinase 1570 H Discharge Diet: No Restrictions Discharge Activity: Return to Normal Activity Home Medications: Medications to take at Discharge Baclofen [Lioresal] 10 mg PO 4X/DAY 02/28/14 Acetaminophen [Tylenol Tablet] 650 mg PO Q6H PRN PRN tablet 04/18/18 Citalopram [Celexa] 20 mg PO QHS 09/01/18 Famotidine [Pepcid] 20 mg PO BID 09/01/18 Gabapentin [Neurontin] 300 mg PO TIDCM 09/01/18 Amantadine [Symmetrel] 100 mg PO BID capsule 09/03/18 Ensure Enlive 120 ml PO 4X/DAY liquid 09/03/18 Magnesium Hydroxide [Milk Of Magnesia] 30 ml PO DAILY PRN PRN udc 09/03/18 Nicotine [Nicoderm] 14 mg TRANSDERM. DAILY patch 09/03/18 Primary Care Physician: Care Physician,No Primary [Primary Care Provider] - Please follow up with your Primary Care Physician in: 2 weeks Please Follow Up With: Maury Cortez MD When: 2 weeks Please Follow Up With: Movement Specialist When: 2 weeks Disposition: Assisted facility Minutes spent on discharge:: 35 Patient Condition:: Stable Medical Necessity - Tobacco Use Smoking Status: Current every day smoker Tobacco Use: Cigarettes Meaningful Use Info Meaningful Use Diagnoses (Choose all that apply): None applicable <Gustavo Warner - Last Filed: 09/03/18 16:15> Discharge Date and Diagnosis - Secondary Discharge Diagnosis Chronic Problems Huntingtons chorea (Chronic) Anxiety (Chronic) Hospital Course and Treatment Summary of Care Provided: This patient was seen in conjunction with Oneal GIL. I have independently interviewed and examined the patient and reviewed pertinent history, examination findings, laboratory and plan of management. I have reviewed the note and agree with the documented findings with the few additional points. In brief, patient is admitted for acute rhabdomyolysis secondary to fall. Patient has recurrent fall even on single day. Discussed with the neurologist Dr. Martin. LFTs are elevated, ALT 83, AST 79. Amantadine frequency decreased to 100 mg twice daily. Tetrabenazine was hold secondary to elevated LFT. Follow with Dr. Cortez as an outpatient. CK was elevated 2450; improved to 1570 I have discussed my assessment with Oneal GIL and orders have been reviewed. Discharge medication reconciliation done. Discharge follow-up instructions discussed with the patient. The patient is discharged to SNF. Total time spent, exact 35 minutes on discharge meds reconciliation, examination, review of imaging and blood test and discussion with the patient on follow-up instructions. [] Laboratory Results 09/03/18 05:15: Sodium 144, Potassium 4.4, Chloride 113 H, Carbon Dioxide 27.0, Anion Gap 4 L, BUN 11, Creatinine 0.68 L, Estim Creat Clear Calc 160.21, Est GFR (MDRD) Af Amer 168, Est GFR (MDRD) Non-Af 139, BUN/Creatinine Ratio 16.2, Glucose 88, Calcium 7.8 L 09/03/18 05:15: Total Creatine Kinase 1570 H Subjective: Patient was seen and examined. Patient still having chorea-like movement but better than yesterday Objective: General: Alert, Oriented x3, Cooperative HEENT: Atraumatic, PERRLA, EOMI, Normocephalic Neck: Supple, No JVD, Negative Carotid Bruits Lungs: Clear to auscultation, Normal air movement, No rhonchi, No wheeze, No rales Cardiovascular: Regular rate, Regular Rhythm, Normal S1, Normal S2, No murmurs Abdomen: Bowel Sounds Present, Soft, Non Tender, Non-Distended Extremities: No edema, Capillary Refill Less than 3 Seconds Skin: No rashes, No breakdown Musculoskeletal: No Tenderness to Palpation of Joints or Extremities Neurological: Cranial nerves II-XII grossly intact, Facial Droop, right left- sided facial droop chronic in nature, Diffuse chorea movement of head and neck, upper extremities and trunk. Unsteady gait. Psych/Mental Status: Normal Affect, Appropriate - Physical Exam Vital Signs Temp Pulse Resp BP Pulse Ox 98.6 F 85 16 147/88 H 97 09/03/18 13:41 09/03/18 13:41 09/03/18 13:41 09/03/18 13:41 09/03/18 13:41 Oxygen Delivery Method Room Air Weight: 169 lb 8.568 oz Body Mass Index (BMI) 21.7 Intake and Output for Last 24 Hours 09/01/18 09/02/18 09/03/18 23:59 23:59 23:59 Intake Total 4242 / 4242 2717 / 2717 Output Total 950 / 950 650 / 650 Balance 3292 / 3292 2067 / 2067 Laboratory Tests Past 24 Hrs 09/03/18 09/03/18 05:15 05:15 Sodium 144 Potassium 4.4 Chloride 113 H Carbon Dioxide 27.0 Anion Gap 4 L BUN 11 Creatinine 0.68 L Estim Creat Clear Calc 160.21 Est GFR (MDRD) Af Amer 168 Est GFR (MDRD) Non-Af 139 BUN/Creatinine Ratio 16.2 Glucose 88 Calcium 7.8 L Total Creatine Kinase 1570 H Code Visit Inpatient E&M: 35709 Disch Hosp
--- NOTE | 2018-09-03 12:45 | CASEMGMT ---
Social Work Note SW received LOC from [facility]. Pt is able to discharge to [facility] today. CINTHIA updated physician. CINTHIA faxed completed discharge paperwork to [facility] including transfer to extended care facility, signed medication list and any scripts. Originals in SNF folder and copy on pt's chart. CINTHIA faxed LOC to [facility], placed original in SNF folder and copy on pt's chart. CINTHIA set up transportation via wheelchair van through [facility] for 2:00pm. Transportation form on SNF folder and copy on pt's chart. PAS/RR completed in [facility]. Original in SNF folder and copy on pt's chart. CINTHIA updated RN Selene Mirza at [facility] and pt on transportation time. Pt gave this worker permission to call his aunt Jorgito and update her on transportation to [facility]. SW placed a call to pt's aunt Jorgito and updated her that pt is being discharged to [facility] today. Jorgito states understanding. Plan: Pt to discharge to [facility] today via wheelchair van with [facility] transporting at 2:00pm. Demetria Hammer TITLE I PARAPROFESSIONAL, INSURANCE SALESPERSON
[2018-09-03 13:41] VITALS: BP 147/88; PULSE 85; RESP 16; TEMP 37; O2SAT 97
== END 2018-09-03 14:19 | disposition intermediate care facility (04) | DRG 558 ==
LOC: ED 18:00 → MS3 19:50
PROVIDERS: Physician Assistant; Admitting Provider Family Medicine; Emergency Provider Emergency Medicine; Visit Provider Internal Medicine
DX: M62.82 Rhabdomyolysis (principal); G10 Huntington's disease; E86.0 Dehydration; S00.03XA Contusion of scalp, initial encounter; W19.XXXA Unspecified fall, initial encounter; Y92.009 Unspecified place in unspecified non-institutional (private) residence as the place of occurrence of the external cause; F17.210 Nicotine dependence, cigarettes, uncomplicated; R29.6 Repeated falls; F41.9 Anxiety disorder, unspecified; R07.81 Pleurodynia; Z79.899 Other long term (current) drug therapy
CPT/HCPCS: 36415; 70450; 71046; 80048; 80076; 82550; 85025; 97116; 97162; 97166; 97530; 97802; 99285; 99406; J7030

== ENCOUNTER 2018-11-08 17:31 | Emergency (ER) | payer MEDICARE, MEDICAID, SELFPAY ==
[2018-11-08 17:32] VITALS: BP 139/101; PULSE 65; RESP 18; TEMP 36.7; O2SAT 94; BMI 18.8
--- NOTE | 2018-11-08 18:10 | ED.DCSUM_ITS ---
- ER Visit Summary Date of Service: 11/08/18 Chief Complaint: [] Frequent falls Parkinson's care home gets up without assistance History of Present Illness: The patient is a 38 M [] acute Parkinson's disease really does not ambulate is supposed to get up with staff assistance only but per information provided to our staff he constantly gets up without assistance any falls on his knees from the bed he did so today and he was brought in for evaluation he falls almost daily because of the above per staff is otherwise health status has been stable Physical Examination: [] He has nonspecific jerking movements of his extremities that are chronic he is awake and alert answering questions indicates his knees are contused but he has full range of motion of his extremities with no pain his head exam is unremarkable his lungs are clear heart tones normal abdomen soft nontender he has nonspecific diffuse bruising and contusions to his extremities from prior falls he has full range of motion of his knees without pain tib-fib ankle feet unremarkable his backs unremarkable his upper extremities unremarkable he is neurologically at his baseline per care home staff he has no head pain or trauma or neck pain Test Results: [] Emergency Department Course and Treatment: []'s time he clearly has contusions from the prior falls there is no signs of acute injury fracture or neurologic abnormality at this time be discharged home I have cautioned the patient not to get up without assistance and otherwise continue his care at nursing center Treatment Plan: [] Disposition: [] Home stable Impression: [] Parkinson's disease, frequent falls due to due to noncompliance with assistance mechanisms, lower extremity contusions This note was generated with [employer] dictation software. It may contain incorrect words, spelling, and punctuation that were not noted in review of the chart prior to signing ED Disposition - Plan for ED Patient: Chief Complaint: Fall Referrals: Care Physician,No Primary [Primary Care Provider] -
--- NOTE | 2018-11-08 18:10 | ED.DEP ---
ED Disposition - Plan for ED Patient: Chief Complaint: Fall Instructions: ED Mechanical Fall Referrals: Care Physician,No Primary [Primary Care Provider] -
--- NOTE | 2018-11-08 18:11 | ED.RN ---
ilene dowd to transport pt back
[2018-11-08 18:46] VITALS: PULSE 66; RESP 18
== END 2018-11-08 18:47 | disposition home or self-care (01) ==
PROVIDERS: Emergency Provider Emergency Medicine; Family Provider Family Medicine; PCP Family Medicine
DX: G20 Parkinson's disease (principal); Z91.19 Patient's noncompliance with other medical treatment and regimen; S80.12XD Contusion of left lower leg, subsequent encounter; S80.11XD Contusion of right lower leg, subsequent encounter; W19.XXXD Unspecified fall, subsequent encounter
CPT/HCPCS: 99283